=== PATIENT | male | born 1950 | race Caucasian/White ===

== ENCOUNTER → 2016-08-21 | Outpatient (CLI) | payer OTHER ==
[~2016-08-21] MED LIST: AMMO12CR4 TOP; ASPI1TAB PO; BACT2CRE TOP; CRES20TA PO; DRIS50002 PO; FERR325T PO; FURO40TA2 PO; LEVO100T5 PO; LISI-538 PO; PANT40TA2 PO; SPIR25TA2 PO; SUCR1TA PO; VITA10002 PO
[2016-08-21 08:23] LABS: ALBUMIN 3.2 GM/DL (3.2-5.2); ALBUMIN/GLOBULIN RATIO 0.94 (1.00-1.93); ALKALINE PHOSPHATASE 79 U/L (45-117); ALT/SGPT 15 U/L (12-78); ANION GAP 8 MEQ/L (8-16); AST/SGOT 11 U/L (15-37); BILIRUBIN,TOTAL 0.4 MG/DL (0.2-1.0); BLOOD UREA NITROGEN 26 MG/DL (7-18); CARBON DIOXIDE LEVEL 25 MEQ/L (21-32); CHLORIDE LEVEL 110 MEQ/L (98-107); CREATININE FOR GFR 0.87 MG/DL (0.70-1.30); FERRITIN 76 NG/ML (26-388); GLOMERULAR FILTRATION RATE > 60.0 (>49); GLUCOSE, FASTING 124 MG/DL (80-110); PERCENT SATURATION 15.1 % (19.7-37.4); POTASSIUM SERUM 4.4 MEQ/L (3.5-5.1); SODIUM LEVEL 143 MEQ/L (136-145); TOTAL IRON BINDING CAPACITY 358 UG/DL (250-450); TOTAL PROTEIN 6.6 GM/DL (6.4-8.2)
[2016-08-21 08:30] LABS: BASO % 0.6 % (0.0-1.0); EOS # 0.2 K/mm3 (0.0-0.50); EOS % 2.3 % (0.0-3.0); LARGE UNSTAINED CELL # 0.2 K/mm3 (0.0-0.4); LARGE UNSTAINED CELL % 3.3 % (0.0-4.0); LYMPH # 1.4 K/mm3 (1.5-4.5); LYMPH % 19.8 % (24.0-44.0); MEAN CORPUSCULAR HGB CONC 31.9 g/dl (32.0-36.5); MONO # 0.5 K/mm3 (0.0-0.8); MONO % 7.2 % (0.0-5.0); NEUTROPHILS # 4.7 K/mm3 (1.8-7.7); NEUTROPHILS % 66.7 % (36.0-66.0); PLATELET COUNT, AUTOMATED 108 k/mm3 (150-450); RED CELL DISTRIBUTION WIDTH 14.8 % (11.5-14.5); WHITE BLOOD COUNT 7.1 K/mm3 (4.0-10.0)
== END ==
LOC: M LAB 07:31
PROVIDERS: ATTEND Family Medicine
DX: D50.9 Iron deficiency anemia, unspecified (principal); E55.9 Vitamin D deficiency, unspecified; E11.9 Type 2 diabetes mellitus without complications

== ENCOUNTER → 2016-10-05 | Outpatient (CLI) | payer OTHER ==
[2016-10-05 08:14] LABS: MEAN CORPUSCULAR HEMOGLOBIN 29.5 pg (27.0-33.0); MEAN CORPUSCULAR HGB CONC 32.9 g/dl (32.0-36.5); MEAN CORPUSCULAR VOLUME 89.8 fl (80.0-96.0); RED CELL DISTRIBUTION WIDTH 14.7 % (11.5-14.5)
[2016-10-05 08:52] LABS: ALBUMIN 3.4 GM/DL (3.2-5.2); ALBUMIN/GLOBULIN RATIO 1.03 (1.00-1.93); ALKALINE PHOSPHATASE 82 U/L (45-117); ALT/SGPT 16 U/L (12-78); ANION GAP 6 MEQ/L (8-16); AST/SGOT 11 U/L (15-37); BILIRUBIN,TOTAL 0.6 MG/DL (0.2-1.0); BLOOD UREA NITROGEN 33 MG/DL (7-18); CALCIUM LEVEL 8.2 MG/DL (8.8-10.2); CARBON DIOXIDE LEVEL 28 MEQ/L (21-32); CHLORIDE LEVEL 108 MEQ/L (98-107); CREATININE FOR GFR 0.98 MG/DL (0.70-1.30); GLOMERULAR FILTRATION RATE > 60.0 (>49); GLUCOSE, FASTING 116 MG/DL (80-110); POTASSIUM SERUM 4.5 MEQ/L (3.5-5.1); SODIUM LEVEL 142 MEQ/L (136-145); TOTAL PROTEIN 6.7 GM/DL (6.4-8.2)
== END ==
LOC: M LAB 07:36
PROVIDERS: ATTEND Physician Assistant
DX: I25.10 Atherosclerotic heart disease of native coronary artery without angina pectoris (principal); I50.32 Chronic diastolic (congestive) heart failure; E78.00 Pure hypercholesterolemia, unspecified

== ENCOUNTER → 2016-11-20 | Outpatient (CLI) | payer OTHER ==
[2016-11-20 12:13] LABS: BASO % 0.6 % (0.0-1.0); EOS # 0.1 K/mm3 (0.0-0.50); EOS % 1.8 % (0.0-3.0); LARGE UNSTAINED CELL # 0.2 K/mm3 (0.0-0.4); LARGE UNSTAINED CELL % 2.7 % (0.0-4.0); LYMPH # 1.9 K/mm3 (1.5-4.5); LYMPH % 20.8 % (24.0-44.0); MEAN CORPUSCULAR HEMOGLOBIN 30.2 pg (27.0-33.0); MEAN CORPUSCULAR HGB CONC 33.2 g/dl (32.0-36.5); MEAN CORPUSCULAR VOLUME 91.1 fl (80.0-96.0); MONO # 0.5 K/mm3 (0.0-0.8); MONO % 6.4 % (0.0-5.0); NEUTROPHILS # 5.4 K/mm3 (1.8-7.7); NEUTROPHILS % 67.6 % (36.0-66.0); PLATELET COUNT, AUTOMATED 103 k/mm3 (150-450); RED CELL DISTRIBUTION WIDTH 15.1 % (11.5-14.5)
== END ==
LOC: M WUC 08:56
PROVIDERS: ATTEND Physician Assistant
DX: M10.071 Idiopathic gout, right ankle and foot (principal)

== ENCOUNTER → 2017-01-18 | Outpatient (CLI) | payer OTHER ==
[~2017-01-18] MED LIST changes: +FERR1TAB8 PO; -FERR325T PO
[2017-01-18 07:51] LABS: BASO % 0.7 % (0.0-1.0); EOS # 0.2 K/mm3 (0.0-0.50); EOS % 3.3 % (0.0-3.0); LARGE UNSTAINED CELL # 0.2 K/mm3 (0.0-0.4); LYMPH # 1.4 K/mm3 (1.5-4.5); LYMPH % 21.9 % (24.0-44.0); MEAN CORPUSCULAR HEMOGLOBIN 29.4 pg (27.0-33.0); MEAN CORPUSCULAR HGB CONC 32.7 g/dl (32.0-36.5); MEAN CORPUSCULAR VOLUME 89.9 fl (80.0-96.0); MONO # 0.4 K/mm3 (0.0-0.8); MONO % 6.3 % (0.0-5.0); NEUTROPHILS # 4.2 K/mm3 (1.8-7.7); NEUTROPHILS % 64.7 % (36.0-66.0); PLATELET COUNT, AUTOMATED 141 k/mm3 (150-450); RED CELL DISTRIBUTION WIDTH 14.6 % (11.5-14.5); WHITE BLOOD COUNT 6.4 K/mm3 (4.0-10.0)
[2017-01-18 08:36] LABS: ALBUMIN 3.4 GM/DL (3.2-5.2); ALBUMIN/GLOBULIN RATIO 0.97 (1.00-1.93); ALKALINE PHOSPHATASE 86 U/L (45-117); ALT/SGPT 13 U/L (12-78); ANION GAP 9 MEQ/L (8-16); AST/SGOT 10 U/L (15-37); BILIRUBIN,TOTAL 0.6 MG/DL (0.2-1.0); BLOOD UREA NITROGEN 28 MG/DL (7-18); CALCIUM LEVEL 8.3 MG/DL (8.8-10.2); CARBON DIOXIDE LEVEL 27 MEQ/L (21-32); CHLORIDE LEVEL 109 MEQ/L (98-107); FERRITIN 123 NG/ML (26-388); GLOMERULAR FILTRATION RATE > 60.0 (>49); GLUCOSE, FASTING 113 MG/DL (80-110); PERCENT SATURATION 12.7 % (19.7-50.0); SODIUM LEVEL 145 MEQ/L (136-145); TOTAL IRON BINDING CAPACITY 347 UG/DL (250-450); TOTAL PROTEIN 6.9 GM/DL (6.4-8.2)
== END ==
LOC: M LAB 07:24
PROVIDERS: ATTEND Family Medicine
DX: Z12.5 Encounter for screening for malignant neoplasm of prostate (principal); D69.6 Thrombocytopenia, unspecified; E55.9 Vitamin D deficiency, unspecified; E03.9 Hypothyroidism, unspecified; E11.9 Type 2 diabetes mellitus without complications
CPT/HCPCS: 36415; 80053; 82306; 82728; 83036; 83550; 83970; 84439; 84443; 85025; G0103

== ENCOUNTER → 2017-05-01 | Outpatient (CLI) | payer OTHER ==
[2017-05-01 14:43] LABS: BASO # 0.1 10^3/uL (0.0-0.2); BASO % 0.7 % (0.0-1.0); EOS # 0.3 10^3/uL (0.0-0.50); EOS % 3.2 % (0.0-3.0); IMMATURE GRANULOCYTE % 0.2 % (0-0); LYMPH # 1.6 10^3/uL (1.5-4.5); LYMPH % 19.3 % (24.0-44.0); MEAN CORPUSCULAR HEMOGLOBIN 28.6 pg (27.0-33.0); MEAN CORPUSCULAR HGB CONC 32.2 g/dl (32.0-36.5); MONO # 0.8 10^3/uL (0.0-0.8); MONO % 10.2 % (0.0-5.0); NEUTROPHILS # 5.3 10^3/uL (1.8-7.7); NEUTROPHILS % 66.4 % (36.0-66.0); PLATELET COUNT, AUTOMATED 150 10^3/uL (150-450); RED CELL DISTRIBUTION WIDTH 15.4 % (11.5-14.5); RETIC HEMOGLOBIN EQUIVALENT 33.3 pg (24-36); RETICULOCYTE % 1.5 % (0.5-1.5)
[2017-05-01 15:06] LABS: ALBUMIN 3.5 GM/DL (3.2-5.2); ALKALINE PHOSPHATASE 100 U/L (45-117); ALT/SGPT 17 U/L (12-78); ANION GAP 9 MEQ/L (8-16); AST/SGOT 12 U/L (7-37); BILIRUBIN,TOTAL 0.5 MG/DL (0.2-1.0); BLOOD UREA NITROGEN 26 MG/DL (7-18); CARBON DIOXIDE LEVEL 29 MEQ/L (21-32); CHLORIDE LEVEL 104 MEQ/L (98-107); CHOLESTEROL LEVEL 94 MG/DL (<200); CREATININE FOR GFR 1.05 MG/DL (0.70-1.30); GLOMERULAR FILTRATION RATE > 60.0 (>49); GLUCOSE, FASTING 110 MG/DL (80-110); PERCENT SATURATION 13.4 % (19.7-50.0); POTASSIUM SERUM 4.4 MEQ/L (3.5-5.1); SODIUM LEVEL 142 MEQ/L (136-145); TOTAL IRON BINDING CAPACITY 367 UG/DL (250-450); TOTAL PROTEIN 7.4 GM/DL (6.4-8.2); TRIGLYCERIDES LEVEL 129 MG/DL (<150); URIC ACID 6.6 MG/DL (3.5-7.2)
[2017-05-04 10:41] LABS: PRETREATED FOLATE FOR RBCFOL 12.8 NG/ML
== END ==
LOC: M LAB 13:18
PROVIDERS: ATTEND Family Medicine
DX: D50.9 Iron deficiency anemia, unspecified (principal); E55.9 Vitamin D deficiency, unspecified; E11.9 Type 2 diabetes mellitus without complications; E78.5 Hyperlipidemia, unspecified; E03.9 Hypothyroidism, unspecified; M10.9 Gout, unspecified

== ENCOUNTER → 2017-05-30 | Outpatient (CLI) | payer OTHER | LOC: M RAD 14:17 | DX: I87.9 Disorder of vein, unspecified (principal) | CPT/HCPCS: 93971 ==

== ENCOUNTER → 2017-09-03 | Outpatient (CLI) | payer MEDICARE, OTHER ==
[2017-09-03 06:48] LABS: BASO # 0.1 10^3/uL (0.0-0.2); BASO % 0.8 % (0.0-1.0); EOS # 0.2 10^3/uL (0.0-0.50); EOS % 2.4 % (0.0-3.0); HEMATOCRIT 41.7 % (42.0-52.0); HEMOGLOBIN 13.7 g/dl (13.5-17.5); IMMATURE GRANULOCYTE % 0.5 % (0-3.0); LYMPH # 1.8 10^3/uL (1.5-4.5); LYMPH % 19.1 % (24.0-44.0); MEAN CORPUSCULAR HEMOGLOBIN 29.3 pg (27.0-33.0); MEAN CORPUSCULAR HGB CONC 32.9 g/dl (32.0-36.5); MEAN CORPUSCULAR VOLUME 89.1 fl (80.0-96.0); MONO # 0.8 10^3/uL (0.0-0.8); MONO % 7.9 % (0.0-5.0); NEUTROPHILS # 6.7 10^3/uL (1.8-7.7); NEUTROPHILS % 69.3 % (36.0-66.0); PLATELET COUNT, AUTOMATED 126 10^3/uL (150-450); RED BLOOD COUNT 4.68 10^6/uL (4.30-6.10); WHITE BLOOD COUNT 9.6 10^3/uL (4.0-10.0)
[2017-09-03 07:25] LABS: ALBUMIN 3.4 GM/DL (3.2-5.2); ALBUMIN/GLOBULIN RATIO 0.87 (1.00-1.93); ALKALINE PHOSPHATASE 103 U/L (45-117); ALT/SGPT 16 U/L (12-78); ANION GAP 6 MEQ/L (8-16); AST/SGOT 12 U/L (7-37); BILIRUBIN,TOTAL 0.5 MG/DL (0.2-1.0); BLOOD UREA NITROGEN 34 MG/DL (7-18); CALCIUM LEVEL 8.3 MG/DL (8.8-10.2); CARBON DIOXIDE LEVEL 27 MEQ/L (21-32); CHLORIDE LEVEL 110 MEQ/L (98-107); CREATININE FOR GFR 1.21 MG/DL (0.70-1.30); FREE T4 0.97 NG/DL (0.76-1.46); GLOMERULAR FILTRATION RATE > 60.0 (>49); GLUCOSE, FASTING 159 MG/DL (70-100); POTASSIUM SERUM 4.2 MEQ/L (3.5-5.1); SODIUM LEVEL 143 MEQ/L (136-145); TOTAL PROTEIN 7.3 GM/DL (6.4-8.2); URIC ACID 4.3 MG/DL (3.5-7.2)
[2017-09-03 08:55] LABS: PTH INTACT 120.1 PG/ML (18.5-88.0)
[2017-09-03 10:47] LABS: ESTIMATED AVERAGE GLUCOSE 166 MG/DL (60-110); HEMOGLOBIN A1c 7.4 %
== END ==
LOC: M LAB 06:12
DX: N18.2 Chronic kidney disease, stage 2 (mild) (principal); E03.9 Hypothyroidism, unspecified; M10.9 Gout, unspecified; E55.9 Vitamin D deficiency, unspecified; E11.9 Type 2 diabetes mellitus without complications
CPT/HCPCS: 84443

== ENCOUNTER → 2017-10-05 | Outpatient (CLI) | payer MEDICARE, OTHER ==
[2017-10-05 08:22] LABS: HEMOGLOBIN 12.9 g/dl (13.5-17.5); MEAN CORPUSCULAR HEMOGLOBIN 30.1 pg (27.0-33.0); MEAN CORPUSCULAR HGB CONC 33.1 g/dl (32.0-36.5); MEAN CORPUSCULAR VOLUME 91.1 fl (80.0-96.0); PLATELET COUNT, AUTOMATED 117 10^3/uL (150-450); RED BLOOD COUNT 4.28 10^6/uL (4.30-6.10); RED CELL DISTRIBUTION WIDTH 14.4 % (11.5-14.5); WHITE BLOOD COUNT 7.6 10^3/uL (4.0-10.0)
[2017-10-05 08:45] LABS: ALBUMIN 3.3 GM/DL (3.2-5.2); ALBUMIN/GLOBULIN RATIO 0.97 (1.00-1.93); ALKALINE PHOSPHATASE 104 U/L (45-117); ALT/SGPT 13 U/L (12-78); ANION GAP 6 MEQ/L (8-16); AST/SGOT 12 U/L (7-37); BILIRUBIN,TOTAL 0.5 MG/DL (0.2-1.0); BLOOD UREA NITROGEN 28 MG/DL (7-18); CALCIUM LEVEL 8.2 MG/DL (8.8-10.2); CARBON DIOXIDE LEVEL 26 MEQ/L (21-32); CHLORIDE LEVEL 111 MEQ/L (98-107); CREATININE FOR GFR 1.18 MG/DL (0.70-1.30); GLOMERULAR FILTRATION RATE > 60.0 (>49); GLUCOSE, FASTING 149 MG/DL (70-100); POTASSIUM SERUM 4.3 MEQ/L (3.5-5.1); SODIUM LEVEL 143 MEQ/L (136-145); TOTAL PROTEIN 6.7 GM/DL (6.4-8.2)
== END ==
LOC: M LAB 07:51
DX: I25.2 Old myocardial infarction (principal); I50.32 Chronic diastolic (congestive) heart failure; E78.00 Pure hypercholesterolemia, unspecified
CPT/HCPCS: 80053

== ENCOUNTER → 2017-12-26 | Outpatient (CLI) | payer MEDICARE, OTHER | LOC: M RAD 14:44 | DX: M79.604 Pain in right leg (principal) | CPT/HCPCS: 93971 ==

== ENCOUNTER → 2018-06-04 | Outpatient (CLI) | payer MEDICARE, OTHER ==
[~2018-06-04] MED LIST changes: -DRIS50002 PO; +DRIS50003 PO; -PANT40TA2 PO; +PANT40TA3 PO; +SPIR-10 PO; -SPIR25TA2 PO
[2018-06-04 07:05] LABS: BASO # 0.1 10^3/uL (0.0-0.2); EOS # 0.2 10^3/uL (0.0-0.50); HEMATOCRIT 40.2 % (42.0-52.0); HEMOGLOBIN 13.2 g/dl (13.5-17.5); LYMPH % 24.4 % (24.0-44.0); MEAN CORPUSCULAR HEMOGLOBIN 29.1 pg (27.0-33.0); MEAN CORPUSCULAR HGB CONC 32.8 g/dl (32.0-36.5); MEAN CORPUSCULAR VOLUME 88.7 fl (80.0-96.0); MONO # 0.7 10^3/uL (0.0-0.8); NEUTROPHILS # 5.2 10^3/uL (1.8-7.7); NEUTROPHILS % 63.2 % (36.0-66.0); PLATELET COUNT, AUTOMATED 115 10^3/uL (150-450); RED BLOOD COUNT 4.53 10^6/uL (4.30-6.10); WHITE BLOOD COUNT 8.2 10^3/uL (4.0-10.0)
[2018-06-04 07:07] LABS: HEMATOCRIT 41.5 % (42.0-52.0)
[2018-06-04 07:30] LABS: HEMOGLOBIN A1c 8.3 %
[2018-06-04 07:39] LABS: FREE T4 0.98 NG/DL (0.76-1.46)
[2018-06-04 09:35] LABS: VITAMIN B12 LEVEL 601 PG/ML (247-911)
== END ==
LOC: M LAB 06:30
PROVIDERS: ATTEND Family Medicine
DX: D50.9 Iron deficiency anemia, unspecified (principal); E03.9 Hypothyroidism, unspecified; E11.9 Type 2 diabetes mellitus without complications; E53.8 Deficiency of other specified B group vitamins; Z12.5 Encounter for screening for malignant neoplasm of prostate
CPT/HCPCS: 36415; 82607; 82747; 83036; 84439; 84443; 85025; 86335; G0103

== ENCOUNTER → 2018-10-28 | Outpatient (CLI) | payer MEDICARE, OTHER ==
[~2018-10-28] MED LIST changes: -AMMO12CR4 TOP; +AMMO12CR7 TOP; -ASPI1TAB PO; +ASPI81TA26 PO; -CRES20TA PO; +CRES20TA2 PO
[2018-10-28 07:10] LABS: BASO # 0.1 10^3/uL (0.0-0.2); BASO % 0.7 % (0.0-1.0); EOS # 0.2 10^3/uL (0.0-0.50); EOS % 2.2 % (0.0-3.0); HEMATOCRIT 40.2 % (42.0-52.0); HEMOGLOBIN 13.1 g/dl (13.5-17.5); LYMPH # 2.1 10^3/uL (1.5-4.5); LYMPH % 24.9 % (24.0-44.0); MEAN CORPUSCULAR HGB CONC 32.6 g/dl (32.0-36.5); MEAN CORPUSCULAR VOLUME 89.1 fl (80.0-96.0); MONO # 0.6 10^3/uL (0.0-0.8); MONO % 7.5 % (0.0-5.0); NEUTROPHILS # 5.5 10^3/uL (1.8-7.7); NEUTROPHILS % 64.2 % (36.0-66.0); PLATELET COUNT, AUTOMATED 133 10^3/uL (150-450); RED BLOOD COUNT 4.51 10^6/uL (4.30-6.10); WHITE BLOOD COUNT 8.6 10^3/uL (4.0-10.0)
[2018-10-28 07:16] LABS: AMORPHOUS SEDIMENT SMALL (NEGATIVE); APPEARANCE, URINE HAZY (CLEAR); BACTERIA, URINE AUTO NEGATIVE (NEGATIVE); BILIRUBIN, URINE AUTO NEGATIVE (NEGATIVE); BLOOD, URINE BLOOD NEGATIVE (NEGATIVE); COLOR, URINE YELLOW (YELLOW); GLUCOSE, URINE (UA) AUTO NEGATIVE (NEGATIVE); KETONE, URINE AUTO NEGATIVE (NEGATIVE); LEUKOCYTE ESTERASE, URINE AUTO TRACE (NEGATIVE); MUCUS, URINE SMALL (NEGATIVE); NITRITE, URINE AUTO NEGATIVE (NEGATIVE); PROTEIN, URINE AUTO NEGATIVE (NEGATIVE); RBC, URINE AUTO 4 /HPF (0-3); SPECIFIC GRAVITY URINE AUTO 1.024 (1.002-1.035); SQUAMOUS EPITHELIAL CELL UR AU 2 /HPF (0-6); WBC, URINE AUTO 5 /HPF (0-3)
[2018-10-28 07:38] LABS: ALBUMIN 3.5 GM/DL (3.2-5.2); ALT/SGPT 23 U/L (12-78); BILIRUBIN,TOTAL 0.6 MG/DL (0.2-1.0); BLOOD UREA NITROGEN 21 MG/DL (7-18); CALCIUM LEVEL 9.1 MG/DL (8.8-10.2); CARBON DIOXIDE LEVEL 26 MEQ/L (21-32); CHLORIDE LEVEL 106 MEQ/L (98-107); CREATININE FOR GFR 1.07 MG/DL (0.70-1.30); FREE T4 1.04 NG/DL (0.76-1.46); GLOMERULAR FILTRATION RATE > 60.0 (>49); GLUCOSE, FASTING 191 MG/DL (70-100); MAGNESIUM LEVEL 1.7 MG/DL (1.8-2.4); POTASSIUM SERUM 4.2 MEQ/L (3.5-5.1); SODIUM LEVEL 140 MEQ/L (136-145)
[2018-10-28 07:41] LABS: MALB URINE SIEMENS 37.6 MG/L; MAU/CREAT RATIO 15.7 MCG/MG (0.0-30.0)
[2018-10-28 07:48] LABS: HEMOGLOBIN A1c 8.2 %
== END ==
LOC: M LAB 06:22
PROVIDERS: ATTEND Family Medicine
DX: D50.9 Iron deficiency anemia, unspecified (principal); N18.2 Chronic kidney disease, stage 2 (mild); E03.9 Hypothyroidism, unspecified; E11.22 Type 2 diabetes mellitus with diabetic chronic kidney disease

== ENCOUNTER → 2018-11-14 | Outpatient (CLI) | payer MEDICARE, OTHER ==
[2018-11-14 07:02] LABS: BASO # 0.1 10^3/uL (0.0-0.2); BASO % 0.8 % (0.0-1.0); EOS # 0.2 10^3/uL (0.0-0.50); EOS % 2.3 % (0.0-3.0); HEMATOCRIT 39.7 % (42.0-52.0); LYMPH # 2.1 10^3/uL (1.5-4.5); LYMPH % 24.5 % (24.0-44.0); MEAN CORPUSCULAR HEMOGLOBIN 29.3 pg (27.0-33.0); MEAN CORPUSCULAR HGB CONC 32.7 g/dl (32.0-36.5); MEAN CORPUSCULAR VOLUME 89.6 fl (80.0-96.0); MONO # 0.7 10^3/uL (0.0-0.8); NEUTROPHILS # 5.4 10^3/uL (1.8-7.7); PLATELET COUNT, AUTOMATED 140 10^3/uL (150-450); RED BLOOD COUNT 4.43 10^6/uL (4.30-6.10); WHITE BLOOD COUNT 8.4 10^3/uL (4.0-10.0)
[2018-11-14 07:24] LABS: BLOOD UREA NITROGEN 22 MG/DL (7-18); CALCIUM LEVEL 8.8 MG/DL (8.8-10.2); CARBON DIOXIDE LEVEL 28 MEQ/L (21-32); CHLORIDE LEVEL 107 MEQ/L (98-107); CREATININE FOR GFR 1.16 MG/DL (0.70-1.30); GLOMERULAR FILTRATION RATE > 60.0 (>49); GLUCOSE, FASTING 206 MG/DL (70-100); POTASSIUM SERUM 4.1 MEQ/L (3.5-5.1); SODIUM LEVEL 142 MEQ/L (136-145)
== END ==
LOC: M LAB 06:11
PROVIDERS: ATTEND Physician Assistant
DX: I25.10 Atherosclerotic heart disease of native coronary artery without angina pectoris (principal)

== ENCOUNTER → 2018-12-06 | Outpatient (CLI) | payer MEDICARE, OTHER ==
[~2018-12-06] MED LIST changes: +ALLO100T PO; +ASPI81TA85 PO; +CYAN100049 PO; +DICL1GEL3 TOP; +FLON1SPR; +METF10004 PO; +MM S100C PO; +MUPI2OI EXT; +NITR0.4S14 SL; +OMEP40CA97 PO; +OXYC1TAB23 PO; +TRUL0.5I SC; +TRUL10IN SC; -VITA10002 PO; +stool softner
--- NOTE | 2018-12-06 09:41 | REP ---
BILATERAL LOWER EXTREMITY DUPLEX DOPPLER VENOUS ULTRASOUND: Real-time compression and duplex Doppler interrogation of bilateral lower extremity deep venous systems is performed. Bilaterally, common femoral, superficial femoral, and popliteal veins are fully compressible with transducer pressure and demonstrate normal spontaneous and phasic flow without evidence of deep venous thrombosis. Evaluation for venous reflux is performed in a standing position for most of the study as well as with the bed tipped. The patient was unable to tolerate standing for the evaluation of the left popliteal vein. On the right, there is reflux in the common femoral vein in the standing position and in the mid superficial femoral vein with the bed tipped. There is no evidence of an anterior accessory greater saphenous vein. There is reflux in the greater saphenous vein at the saphenofemoral junction with a duration of 4 seconds, AP diameter 10 mm, also at the midthigh level duration 6.2 seconds, AP diameter 8 mm, as well as at the knee, duration 5.4 seconds, AP diameter 8 mm. There is no reflux in the lesser saphenous vein. There are collateral vessels with reflux in the proximal thigh measuring 8 mm and in the midthigh measuring 6 mm. On the left, there is reflux throughout the deep vein system. There is no evidence of an anterior accessory greater saphenous vein. There is reflux in the greater saphenous vein at the saphenofemoral junction with a duration of 7 seconds, AP diameter 6 mm, at the midthigh with a duration of 6.8 seconds, AP diameter 6 mm, as well as at the knee duration 7.6 seconds, AP diameter 4 mm. There is no evidence of reflux in the lesser saphenous vein. Electronically Signed by Bryson Moreno MD 12/07/2018 10:46 A
== END ==
LOC: M RAD 06:14
PROVIDERS: ATTEND Physician Assistant
DX: I80.203 Phlebitis and thrombophlebitis of unspecified deep vessels of lower extremities, bilateral (principal)

== ENCOUNTER → 2018-12-20 | Outpatient (CLI) | payer MEDICARE, OTHER ==
[~2018-12-20] MED LIST changes: -ALLO100T PO; -ASPI81TA85 PO; -DICL1GEL3 TOP; -FLON1SPR; -METF10004 PO; -MM S100C PO; -MUPI2OI EXT; -NITR0.4S14 SL; -OMEP40CA97 PO; -OXYC1TAB23 PO; -TRUL0.5I SC; -TRUL10IN SC; -stool softner
--- NOTE | 2018-12-20 14:41 | REP ---
Right lower extremity arterial duplex ultrasound: Brachial artery peak systole: 140 mmHg. Dorsalis pedis peak systole: 122 mmHg. [employer] SUPERVISOR peak systole: 128 mmHg. JANA 0.9. Peak Systolic Phasicity Velocity [employer] 157.8 triphasic Profunda 76.7 biphasic SFA prox 133 triphasic SFA mid 95.5 triphasic SFA dist 72.6 triphasic Pop 73.1 monophasic ANURADHA prox 64 monophasic Tib/P tr 66.3 monophasic [employer] SUPERVISOR pr not seen -- [employer] SUPERVISOR dst 98.3 monophasic ANURADHA dst 55.6 triphasic Left lower extremity arterial duplex ultrasound: Brachial artery peak systole: 142 mmHg. Dorsalis pedis peak systole: 148 mmHg. [employer] SUPERVISOR peak systole: 40 mmHg. JANA: 1.0 Peak Systolic Phasicity Velocity [employer] 119.5 triphasic Profunda 78.3 triphasic SFA prox 133.7 triphasic SFA mid 104.0 triphasic SFA dist 73.4 triphasic Pop 44.6 triphasic ANURADHA prox 41.3 triphasic Tib/P tr 50.7 triphasic [employer] SUPERVISOR pr 41.7 triphasic [employer] SUPERVISOR dst 58.8 triphasic ANURADHA dst 41. 0 Triphasic The study is technically difficult because of lower extremity edema and patient body habitus. In the right lower extremity. there is severe edema from the common femoral artery to the foot. The right [employer] SUPERVISOR could not be identified because of edema and body habitus. Electronically Signed by Bryson Hernandez MD 12/20/2018 02:32 P
== END ==
LOC: M RAD 12:27
PROVIDERS: ATTEND Surgery Vascular Surgery
DX: M79.604 Pain in right leg (principal); M79.605 Pain in left leg; R60.9 Edema, unspecified; I73.9 Peripheral vascular disease, unspecified

== ENCOUNTER 2019-02-10 07:30 | Emergency (ER) | payer MEDICARE, OTHER ==
[~2019-02-10] VITALS: Ht 175.3 cm; Wt 160.4 kg
[~2019-02-10 07:30] MED LIST changes: +ALLO100T PO; +FLON1SPR; +METF10004 PO; +NITR0.4S14 SL; +TRUL10IN SC; +stool softner
[2019-02-10] MEDS ORDERED: OMEP40CA2 PO (07:49)
[2019-02-10] MEDS ORDERED: NS 500 ML IV ONE ×2 (08:00→09:15)
[2019-02-10 08:14] LABS: BASO # 0.1 10^3/uL (0.0-0.2); BASO % 0.7 % (0.0-1.0); EOS # 0.2 10^3/uL (0.0-0.5); EOS % 2.3 % (0.0-3.0); HEMATOCRIT 41.3 % (42.0-52.0); HEMOGLOBIN 13.6 g/dl (13.5-17.5); LYMPH # 1.6 10^3/uL (1.5-5.0); LYMPH % 17.9 % (24.0-44.0); MEAN CORPUSCULAR HEMOGLOBIN 29.6 pg (27.0-33.0); MEAN CORPUSCULAR HGB CONC 32.9 g/dl (32.0-36.5); MONO # 0.7 10^3/uL (0.0-0.8); MONO % 8.1 % (0.0-5.0); NEUTROPHILS # 6.4 10^3/uL (1.5-8.5); NEUTROPHILS % 70.5 % (36.0-66.0); PLATELET COUNT, AUTOMATED 112 10^3/uL (150-450); RED BLOOD COUNT 4.59 10^6/uL (4.30-6.10); WHITE BLOOD COUNT 9.1 10^3/uL (4.0-10.0)
[2019-02-10 08:36] LABS: BLOOD UREA NITROGEN 24 MG/DL (7-18); CALCIUM LEVEL 9.3 MG/DL (8.8-10.2); CARBON DIOXIDE LEVEL 23 MEQ/L (21-32); CHLORIDE LEVEL 110 MEQ/L (98-107); CREATININE FOR GFR 1.23 MG/DL (0.70-1.30); GLOMERULAR FILTRATION RATE > 60.0 (>49); GLUCOSE, FASTING 194 MG/DL (70-100); POTASSIUM SERUM 4.4 MEQ/L (3.5-5.1); SODIUM LEVEL 141 MEQ/L (136-145)
[2019-02-10 12:29] VITALS: BP 155/69
[2019-02-14] MEDS ORDERED: DICL1GEL3 TOP (13:06)
[2019-02-14] MEDS ORDERED: ASPI81TA85 PO (13:06)
[2019-02-14] MEDS ORDERED: MUPI2OI EXT (13:06)
[2019-02-14] MEDS ORDERED: MM S100C PO (13:06)
== END 2019-02-10 12:30 | disposition home or self-care (01) ==
LOC: M ED 07:30
DX: R19.7 Diarrhea, unspecified (principal); B96.23 Unspecified Shiga toxin-producing Escherichia coli [E. coli] [STEC] as the cause of diseases classified elsewhere; E11.9 Type 2 diabetes mellitus without complications; I10 Essential (primary) hypertension; E78.5 Hyperlipidemia, unspecified; G47.33 Obstructive sleep apnea (adult) (pediatric); E66.8 Other obesity; M10.9 Gout, unspecified; M17.9 Osteoarthritis of knee, unspecified; Z79.899 Other long term (current) drug therapy; Z79.890 Hormone replacement therapy; Z79.84 Long term (current) use of oral hypoglycemic drugs; Z79.82 Long term (current) use of aspirin

== ENCOUNTER → 2019-03-31 | Outpatient (CLI) | payer MEDICARE, OTHER ==
[~2019-03-31] MED LIST changes: +ASPI81TA85 PO; +DICL1GEL3 TOP; +HEPARIN 1,000 UNITS/ML 10ML VIAL (FOR RADIOLOGY& DIALYSIS ONLY) As Ordered ONE; +ISOVUE-300 61% 50ML VIAL (Q9967) As Ordered ONE; +LIDOCAINE 1% MDV 20ML VIAL As Ordered ONE; +MIDAZOLAM INJ 2 MG/2 ML VIAL (J2250) As Ordered ONE; +MM S100C PO; +MUPI2OI EXT; +OMEP40CA97 PO; +fentaNYL 100 MCG/2 ML INJECTION (J3010) As Ordered ONE
[2019-03-31 09:37] LABS: HEMATOCRIT 39.8 % (42.0-52.0); HEMOGLOBIN 12.4 g/dl (13.5-17.5); MEAN CORPUSCULAR HEMOGLOBIN 28.8 pg (27.0-33.0); MEAN CORPUSCULAR HGB CONC 31.2 g/dl (32.0-36.5); MEAN CORPUSCULAR VOLUME 92.3 fl (80.0-96.0); PLATELET COUNT, AUTOMATED 130 10^3/uL (150-450); RED BLOOD COUNT 4.31 10^6/uL (4.30-6.10); WHITE BLOOD COUNT 8.4 10^3/uL (4.0-10.0)
[2019-03-31 09:57] LABS: BLOOD UREA NITROGEN 24 MG/DL (7-18); CALCIUM LEVEL 8.8 MG/DL (8.8-10.2); CARBON DIOXIDE LEVEL 27 MEQ/L (21-32); CHLORIDE LEVEL 108 MEQ/L (98-107); GLOMERULAR FILTRATION RATE > 60.0 (>49); GLUCOSE, FASTING 175 MG/DL (70-100); POTASSIUM SERUM 4.3 MEQ/L (3.5-5.1); SODIUM LEVEL 140 MEQ/L (136-145)
--- NOTE | 2019-03-31 12:36 | ROOPDOC ---
[facility] Report Of Operation Report of Operation DATE OF PROCEDURE: 03/31/19 PREPROCEDURE DIAGNOSES: Atherosclerosis in the mechoopda vessels right lower extremity POSTPROCEDURE DIAGNOSES: Widely patent flow right lower extremity arterial system PROCEDURE: 1. Ultrasound-guided access left common femoral artery 2. Aortoiliofemoral arteriogram and arteriogram right lower extremity with runoff and select views right tibioperoneal trunk SURGEON: Ed Mckeon MD ANESTHESIA: Local anesthesia 10 mL lidocaine. Moderate intravenous conscious sedation was supervised by Dr. Mckeon. The patient was independently monitored by registered nurse assigned to the Department of radiology using automated blood pressure, EKG, pulse oximetry. The detailed sedation record is permanently [facility] the hospital information system. The following a brief sedation record: Start time 11:46, stop time 12:23, fentanyl 75 g IV, Versed 1 mg IV. INDICATION FOR PROCEDURE: This is a very pleasant 68-year-old morbidly obese gentleman with venous stasis with ulceration worse at the right lower extremity and concern on CTA for poor tibial outflow of the right lower extremity. Risks benefits and alternatives to an arteriogram with potential intervention were explained to the patient. He was agreeable to proceed. Informed consent was obtained. INTERPRETATION: Aortoiliofemoral segments are widely patent. The common femoral artery has excellent widely patent runoff through the per fundi and the superficial femoral artery to widely patent popliteal artery. The anterior tibial and posterior tibial arteries are the main runoff to the foot. Initially, the peroneal artery appeared somewhat stenotic, but it is simply diminutive in size and when we selected tibioperoneal trunk it is widely patent and runs off to the ankle. No intervention was required today. REPORT OF OPERATION: The patient was brought to the angiographic suite in stable condition. His bilateral groins were prepped and draped in a sterile fashion. Due to his mental size, we did have to taper of his abdomen to expose the groins. A timeout was performed. Local anesthesia was a video poker floorman to skin and subcutaneous tissue in the left groin. Sedation was administered without obligation. A microneedle was used to access the common femoral artery under ultrasound guidance and a wire was passed through this access under fluoroscopic guidance and the needle was removed. The micro-sheath was placed and flushed with saline. A Glidewire was advanced through the micro-sheath into the central system and the sheath was removed and a 6 Korean sheath was placed using a Seldinger technique and flushed with saline. We then went up and over the bifurcation with a Glidewire and an Omni flushed catheter. An aortoiliofemoral arteriogram was performed please see interpretation above. The Glidewire was advanced over through the right iliac system into the common femoral artery and the catheter was also advanced. The sheath was exchanged for a destination sheath over the bifurcation and flushed with saline. The right lower extremity arteriogram was performed please see interpretation above. We then selected s uperficial femoral artery for distal arteriogram but the tibial vessels were still difficult to fully see. We went up and through with the glide cath in the Glidewire down to the tibioperoneal trunk and once this was selected we were able to see 3 vessel runoff through all muscles to the foot. The peroneal artery is diminutive but patent. Anterior and tibial and posterior tibial arteries are the main runoff to the foot. No arterial insufficiency noted on imaging today. This concluded our procedure. The sheath was exchanged for a short 6 Korean sheath and flushed with saline. A minx closure device was deployed with good hemostasis and pressure was held for 10 minutes postprocedure. The patient was then taken to recovery in stable condition. He tolerated the procedure well and there were no complications. ESTIMATED BLOOD LOSS: Approximately 5 mL. COMPLICATIONS: none. PLAN: We'll see the patient back in clinic in a week to check his groin access site. It is okay for him to use compression to help treat the right lower extremity. He has adequate arterial flow to tolerate a strong compression. ED MCKEON MD Mar 31, 2019 12:36
[2019-03-31 16:28] VITALS: BP 126/61
== END ==
LOC: M IRPRO 08:30
PROVIDERS: ATTEND Surgery Vascular Surgery
DX: I70.239 Atherosclerosis of native arteries of right leg with ulceration of unspecified site (principal); I87.2 Venous insufficiency (chronic) (peripheral); E66.01 Morbid (severe) obesity due to excess calories
CPT/HCPCS: 36425; 75710; 75774; 80048; 85027; 99152; 99153; C1760; C1769; C1887; C1894; G0239; J2250; J3010; Q9967

== ENCOUNTER 2019-04-09 09:49 | Day surgery (SDC) | payer MEDICARE, OTHER ==
[~2019-04-09] VITALS: Ht 175.3 cm; Wt 159.7 kg
[~2019-04-09 09:49] MED LIST changes: -HEPARIN 1,000 UNITS/ML 10ML VIAL (FOR RADIOLOGY& DIALYSIS ONLY) As Ordered ONE; -ISOVUE-300 61% 50ML VIAL (Q9967) As Ordered ONE; -LIDOCAINE 1% MDV 20ML VIAL As Ordered ONE; +LIDOCAINE 1% MDV 20ML VIAL SQ PRN; +LR 1,000 ML IV ONE; -MIDAZOLAM INJ 2 MG/2 ML VIAL (J2250) As Ordered ONE; +TRUL0.5I SC; +ceFAZolin SOD 2 GM in IV 1 EA IV ONE; -fentaNYL 100 MCG/2 ML INJECTION (J3010) As Ordered ONE
[2019-04-09] MEDS ORDERED: fentaNYL 100 MCG/2 ML INJECTION (J3010) As Ordered ONE (10:26)
[2019-04-09] MEDS ORDERED: LIDOCAINE 2% INJ 100 MG/5 ML SDV (FOR ANES.) As Ordered ONE (10:26)
[2019-04-09] MEDS ORDERED: PROPOFOL 200 MG/20 ML VIAL As Ordered ONE (10:26)
[2019-04-09] MEDS ORDERED: MIDAZOLAM INJ 2 MG/2 ML VIAL (J2250) As Ordered ONE ×2 (10:26→11:48)
[2019-04-09] MEDS ORDERED: HEPARIN SOD (PORCINE) 5000 UNITS/ML VIAL As Ordered ONE (11:01)
[2019-04-09] MEDS ORDERED: LIDOCAINE W/EPINEPHRINE 1% 20ML VIAL As Ordered ONE (11:01)
[2019-04-09] MEDS ORDERED: KETAMINE HCL 200 MG/20 ML VIAL As Ordered ONE (11:32)
[2019-04-09] MEDS ORDERED: LIDOCAINE 1% SDV INJ 30 ML VIAL As Ordered ONE (12:03)
[2019-04-09] MEDS ORDERED: ePHEDrine SULFATE 25 MG/5 ML(5MG/ML) SYRINGE As Ordered ONE (12:16)
--- NOTE | 2019-04-09 13:19 | ROOPDOC ---
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 POSTPROCEDURE DIAGNOSES: Same. PROCEDURE: Right greater saphenous vein radiofrequency ablation. SURGEON: Ed Mckeon MD ANESTHESIA: Monitored anesthesia care and local. INDICATION FOR PROCEDURE: Mr. Winston is a pleasant 68-year-old gentleman with significant greater saphenous vein reflux and nonhealing ulcers of the right lower extremity. Response benefits alternatives to radiofrequency ablation were explained to the patient at length. Informed consent was obtained. INTERPRETATION: The radiofrequency ablation catheter was passed under ultrasound guidance to the saphenofemoral junction insuring that the tip was 2 cm distal to the junction. Tumescence was injected along the length of the catheter under ultrasound guidance. The catheter was retracted during ablation under ultrasound guidance. REPORT OF OPERATION: Patient was brought to the OR in stable condition. His right lower extremity and groin were prepped and draped in a sterile fashion. Antibiotics and anesthesia were administered without convocation. A timeout was performed. Local anesthesia was administered to skin and subcutaneous tissue over the medial calf over the greater saphenous vein. Ultrasound was used to guide access with a microneedle and a wire was passed through this access and the needle was removed. A micro-sheath was placed and flushed with saline. A wire was passed through this access and a 7 Swazi sheath was placed and flushed with saline. The ablation catheter was then advanced through the sheath up to the femoral junction insuring that the tip was 2 cm distal to the junction. Tumescence was injected along the length of the catheter circumferentially. The catheter was then used for ablation with ultrasound guidance and compression and 7 cycles were performed. The catheter and sheath were removed and pressure was held at the exit site for 2 minutes. Sterile dressings were applied at the exit site and Xeroform and Kerlix were placed over the ulcers. The leg was wrapped from the toes to the hip with 4 Vikas wraps. The patient was then taken to recove in stable condition. ESTIMATED BLOOD LOSS: Approximately 2 mL. COMPLICATIONS: None. PLAN: The patient should continue dressings and Vikas wraps for 48 hours possible. He should elevate his right lower extremity is much as possible over the next few days. It is okay to ambulate but only short distances he should not be on his feet for extended periods. He will need to return for an ultrasound examination to check to make sure there is no thrombus extending into the deep system and to ensure that the ablation was successful. ED MCKEON MD Apr 09, 2019 13:19
[2019-04-09 14:00] VITALS: BP 140/70
[2019-04-09] MEDS ORDERED: OXYC1TAB23 PO (15:42)
== END 2019-04-09 14:10 | disposition home or self-care (01) ==
LOC: M SDC 09:49
PROVIDERS: ATTEND Surgery Vascular Surgery
DX: I70.232 Atherosclerosis of native arteries of right leg with ulceration of calf (principal); I87.311 Chronic venous hypertension (idiopathic) with ulcer of right lower extremity; L97.219 Non-pressure chronic ulcer of right calf with unspecified severity; I87.2 Venous insufficiency (chronic) (peripheral); I25.10 Atherosclerotic heart disease of native coronary artery without angina pectoris; I11.0 Hypertensive heart disease with heart failure; I50.9 Heart failure, unspecified; E78.00 Pure hypercholesterolemia, unspecified; R01.1 Cardiac murmur, unspecified; E11.9 Type 2 diabetes mellitus without complications; M10.9 Gout, unspecified; E03.9 Hypothyroidism, unspecified; K25.9 Gastric ulcer, unspecified as acute or chronic, without hemorrhage or perforation; K21.9 Gastro-esophageal reflux disease without esophagitis; D64.9 Anemia, unspecified; R06.02 Shortness of breath; M12.9 Arthropathy, unspecified; J44.9 Chronic obstructive pulmonary disease, unspecified; R06.83 Snoring; G47.33 Obstructive sleep apnea (adult) (pediatric); Z79.899 Other long term (current) drug therapy; Z79.82 Long term (current) use of aspirin; Z79.84 Long term (current) use of oral hypoglycemic drugs; Z95.5 Presence of coronary angioplasty implant and graft; Z87.891 Personal history of nicotine dependence; Z68.43 Body mass index [BMI] 50.0-59.9, adult; Z85.038 Personal history of other malignant neoplasm of large intestine
CPT/HCPCS: 36475; C1894; J0690; J2250; J3010

== ENCOUNTER → 2019-04-14 | Outpatient (CLI) | payer MEDICARE, OTHER ==
[~2019-04-14] MED LIST changes: -LIDOCAINE 1% MDV 20ML VIAL SQ PRN; -LR 1,000 ML IV ONE; +OXYC1TAB23 PO; -ceFAZolin SOD 2 GM in IV 1 EA IV ONE
--- NOTE | 2019-04-14 10:58 | REP ---
Right lower extremity Duplex Doppler venous ultrasound: Real time compression and duplex Doppler interrogation of the right lower extremity deep venous system is performed. The right common femoral, superficial femoral and popliteal veins are fully compressible with transducer pressure and demonstrate normal spontaneous and phasic flow, without evidence of deep venous thrombosis. Impression: No evidence of deep venous thrombosis of the right lower extremity femoral popliteal venous system. Right greater saphenous vein is thrombosed, as expected. Electronically Signed by Bryson Moreno MD 04/14/2019 10:50 A
== END ==
LOC: M RAD 09:47
PROVIDERS: ATTEND Surgery Vascular Surgery
DX: I87.2 Venous insufficiency (chronic) (peripheral) (principal)

== ENCOUNTER → 2019-04-22 | Outpatient (CLI) | payer MEDICARE, OTHER ==
[2019-04-22 07:11] LABS: ALBUMIN 3.3 GM/DL (3.2-5.2); BILIRUBIN,DIRECT 0.2 MG/DL (0.0-0.2); BILIRUBIN,TOTAL 0.6 MG/DL (0.2-1.0); CHOLESTEROL RISK RATIO 2.787 (<5); TOTAL PROTEIN 7.2 GM/DL (6.4-8.2)
== END ==
LOC: M LAB 06:13
PROVIDERS: ATTEND Physician Assistant
DX: E78.00 Pure hypercholesterolemia, unspecified (principal); I50.32 Chronic diastolic (congestive) heart failure; I25.10 Atherosclerotic heart disease of native coronary artery without angina pectoris; E83.42 Hypomagnesemia

== ENCOUNTER → 2019-04-28 | Outpatient (CLI) | payer MEDICARE, OTHER ==
[2019-04-28 08:25] LABS: ALBUMIN 3.3 GM/DL (3.2-5.2); ALT/SGPT 24 U/L (12-78); BILIRUBIN,TOTAL 0.4 MG/DL (0.2-1.0); BLOOD UREA NITROGEN 27 MG/DL (7-18); CALCIUM LEVEL 8.8 MG/DL (8.8-10.2); CARBON DIOXIDE LEVEL 24 MEQ/L (21-32); CHLORIDE LEVEL 110 MEQ/L (98-107); CHOLESTEROL LEVEL 92 MG/DL (<200); CHOLESTEROL RISK RATIO 2.787 (<5); CREATININE FOR GFR 1.21 MG/DL (0.70-1.30); FREE T4 1.04 NG/DL (0.76-1.46); GLOMERULAR FILTRATION RATE > 60.0 (>49); GLUCOSE, FASTING 189 MG/DL (70-100); HDL CHOLESTEROL 33 MG/DL (>40); LDL CHOLESTEROL 35 MG/DL (<100); NON-HDL-C 59 MG/DL; POTASSIUM SERUM 4.8 MEQ/L (3.5-5.1); SODIUM LEVEL 140 MEQ/L (136-145); TOTAL PROTEIN 7.3 GM/DL (6.4-8.2); TRIGLYCERIDES LEVEL 118 MG/DL (<150)
[2019-04-28 08:42] LABS: HEMOGLOBIN A1c 8.3 %
[2019-04-28 09:09] LABS: VITAMIN B12 LEVEL 677 PG/ML (247-911)
[2019-04-28 10:46] LABS: APPEARANCE, URINE CLEAR (CLEAR); BACTERIA, URINE AUTO NEGATIVE (NEGATIVE); BILIRUBIN, URINE AUTO NEGATIVE (NEGATIVE); BLOOD, URINE BLOOD NEGATIVE (NEGATIVE); COLOR, URINE YELLOW (YELLOW); GLUCOSE, URINE (UA) AUTO NEGATIVE (NEGATIVE); KETONE, URINE AUTO TRACE mg/dL (NEGATIVE); LEUKOCYTE ESTERASE, URINE AUTO NEGATIVE (NEGATIVE); NITRITE, URINE AUTO NEGATIVE (NEGATIVE); PROTEIN, URINE AUTO NEGATIVE (NEGATIVE); RBC, URINE AUTO 0 /HPF (0-3); SPECIFIC GRAVITY URINE AUTO 1.026 (1.002-1.035); SQUAMOUS EPITHELIAL CELL UR AU 0 /HPF (0-6); UROBILINOGEN, URINE AUTO 0.2 mg/dL (0.0-2.0); WBC, URINE AUTO 1 /HPF (0-3)
[2019-04-28 11:19] LABS: MALB URINE SIEMENS 44.6 MG/L; MAU/CREAT RATIO 15.9 MCG/MG (0.0-30.0)
== END ==
LOC: M LAB 07:12
PROVIDERS: ATTEND Family Medicine
DX: E78.5 Hyperlipidemia, unspecified (principal); E11.9 Type 2 diabetes mellitus without complications

== ENCOUNTER → 2019-09-08 | Outpatient (CLI) | payer MEDICARE, OTHER ==
[2019-09-08 07:11] LABS: ALBUMIN 3.2 GM/DL (3.2-5.2); ALT/SGPT 20 U/L (12-78); BILIRUBIN,TOTAL 0.5 MG/DL (0.2-1.0); BLOOD UREA NITROGEN 27 MG/DL (7-18); CARBON DIOXIDE LEVEL 27 MEQ/L (21-32); CHLORIDE LEVEL 107 MEQ/L (98-107); CREATININE FOR GFR 1.17 MG/DL (0.70-1.30); FREE T4 1.07 NG/DL (0.76-1.46); GLOMERULAR FILTRATION RATE > 60.0 (>49); GLUCOSE, FASTING 205 MG/DL (70-100); MAGNESIUM LEVEL 1.6 MG/DL (1.8-2.4); POTASSIUM SERUM 4.3 MEQ/L (3.5-5.1); SODIUM LEVEL 139 MEQ/L (136-145); TOTAL PROTEIN 6.7 GM/DL (6.4-8.2); URIC ACID 3.8 MG/DL (3.5-7.2)
[2019-09-08 07:22] LABS: HEMOGLOBIN A1c 9.1 %
[2019-09-08 07:51] LABS: TOTAL 25(OH) VITAMIN D 52.8 NG/ML (30.0-100.0)
== END ==
LOC: M LAB 06:05
PROVIDERS: ATTEND Family Medicine
DX: E11.9 Type 2 diabetes mellitus without complications (principal); I10 Essential (primary) hypertension; M10.9 Gout, unspecified; E55.9 Vitamin D deficiency, unspecified; D69.6 Thrombocytopenia, unspecified; Z12.5 Encounter for screening for malignant neoplasm of prostate; Z79.82 Long term (current) use of aspirin
CPT/HCPCS: 36415; 80053; 82140; 82172; 82306; 83010; 83036; 83735; 83883; 83970; 84439; 84443; 84550; G0103

== ENCOUNTER → 2019-10-17 | Outpatient (CLI) | payer MEDICARE, OTHER ==
[2019-10-17 07:25] LABS: BLOOD UREA NITROGEN 25 MG/DL (7-18); CARBON DIOXIDE LEVEL 25 MEQ/L (21-32); CHLORIDE LEVEL 106 MEQ/L (98-107); CREATININE FOR GFR 1.16 MG/DL (0.70-1.30); GLOMERULAR FILTRATION RATE > 60.0 (>49); GLUCOSE, FASTING 151 MG/DL (70-100); MAGNESIUM LEVEL 1.6 MG/DL (1.8-2.4); POTASSIUM SERUM 4.1 MEQ/L (3.5-5.1); SODIUM LEVEL 140 MEQ/L (136-145)
== END ==
LOC: M LAB 06:02
PROVIDERS: ATTEND Physician Assistant
DX: I50.32 Chronic diastolic (congestive) heart failure (principal); E83.42 Hypomagnesemia

== ENCOUNTER → 2020-02-09 | Outpatient (CLI) | payer MEDICARE, OTHER ==
[~2020-02-09] MED LIST changes: -ASPI81TA85 PO; +ASPI81TA86 PO; +PANT40TA29 PO; -PANT40TA3 PO
[2020-02-09 07:29] LABS: BASO # 0.1 10^3/uL (0.0-0.2); BASO % 0.7 % (0.0-1.0); EOS # 0.3 10^3/uL (0.0-0.5); EOS % 2.4 % (0.0-3.0); HEMATOCRIT 38.4 % (42.0-52.0); HEMOGLOBIN 12.3 g/dl (13.5-17.5); LYMPH # 2.2 10^3/uL (1.5-5.0); LYMPH % 21.7 % (24.0-44.0); MEAN CORPUSCULAR HEMOGLOBIN 29.1 pg (27.0-33.0); MONO # 0.8 10^3/uL (0.0-0.8); MONO % 8.2 % (0.0-5.0); NEUTROPHILS # 6.8 10^3/uL (1.5-8.5); NEUTROPHILS % 66.5 % (36.0-66.0); PLATELET COUNT, AUTOMATED 132 10^3/uL (150-450); RED BLOOD COUNT 4.22 10^6/uL (4.30-6.10); WHITE BLOOD COUNT 10.2 10^3/uL (4.0-10.0)
[2020-02-09 07:46] LABS: HEMOGLOBIN A1c 7.8 %
[2020-02-09 07:59] LABS: ALT/SGPT 20 U/L (12-78); BILIRUBIN,TOTAL 0.5 MG/DL (0.2-1.0); BLOOD UREA NITROGEN 25 MG/DL (7-18); CALCIUM LEVEL 8.9 MG/DL (8.8-10.2); CARBON DIOXIDE LEVEL 28 MEQ/L (21-32); CHLORIDE LEVEL 109 MEQ/L (98-107); CHOLESTEROL LEVEL 87 MG/DL (<200); CREATININE FOR GFR 1.23 MG/DL (0.70-1.30); GLOMERULAR FILTRATION RATE > 60.0 (>49); GLUCOSE, FASTING 180 MG/DL (70-100); HDL CHOLESTEROL 29 MG/DL (>40); LDL CHOLESTEROL 31 MG/DL (<100); NON-HDL-C 58 MG/DL; NT-PRO BNP 138 PG/ML (<125); POTASSIUM SERUM 4.1 MEQ/L (3.5-5.1); SODIUM LEVEL 140 MEQ/L (136-145); TOTAL PROTEIN 6.8 GM/DL (6.4-8.2); TRIGLYCERIDES LEVEL 137 MG/DL (<150)
== END ==
LOC: M LAB 06:33
PROVIDERS: ATTEND Family Medicine
DX: D69.6 Thrombocytopenia, unspecified (principal); E11.9 Type 2 diabetes mellitus without complications

== ENCOUNTER → 2020-02-10 | Outpatient (REF) | payer MEDICARE, OTHER ==
[2020-02-10 11:08] LABS: APPEARANCE, URINE CLEAR (CLEAR); BACTERIA, URINE AUTO NEGATIVE (NEGATIVE); BILIRUBIN, URINE AUTO NEGATIVE (NEGATIVE); BLOOD, URINE BLOOD NEGATIVE (NEGATIVE); COLOR, URINE YELLOW (YELLOW); GLUCOSE, URINE (UA) AUTO NEGATIVE (NEGATIVE); KETONE, URINE AUTO NEGATIVE (NEGATIVE); LEUKOCYTE ESTERASE, URINE AUTO TRACE (NEGATIVE); MUCUS, URINE SMALL (NEGATIVE); NITRITE, URINE AUTO NEGATIVE (NEGATIVE); PROTEIN, URINE AUTO NEGATIVE (NEGATIVE); RBC, URINE AUTO 0 /HPF (0-3); SPECIFIC GRAVITY URINE AUTO 1.023 (1.002-1.035); SQUAMOUS EPITHELIAL CELL UR AU 1 /HPF (0-6); UROBILINOGEN, URINE AUTO 0.2 mg/dL (0.0-2.0); WBC, URINE AUTO 3 /HPF (0-3)
[2020-02-10 11:48] LABS: MALB URINE SIEMENS 8.3 MG/L; MAU/CREAT RATIO 4.4 MCG/MG (0.0-30.0)
== END ==
LOC: M SFHCPLAZ 10:20
PROVIDERS: ATTEND Family Medicine
DX: E11.9 Type 2 diabetes mellitus without complications (principal)

== ENCOUNTER → 2020-04-26 | Outpatient (CLI) | payer MEDICARE, OTHER ==
[2020-04-26 07:19] LABS: CALCIUM LEVEL 8.8 MG/DL (8.8-10.2); CREATININE FOR GFR 1.35 MG/DL (0.70-1.30); GLOMERULAR FILTRATION RATE 56.1 (>49); MAGNESIUM LEVEL 1.9 MG/DL (1.8-2.4); POTASSIUM SERUM 4.2 MEQ/L (3.5-5.1)
== END ==
LOC: M LAB 05:59
PROVIDERS: ATTEND Physician Assistant
DX: I50.32 Chronic diastolic (congestive) heart failure (principal); E83.42 Hypomagnesemia

== ENCOUNTER → 2020-05-04 | Outpatient (CLI) | payer SELFPAY | LOC: M LABSMTC 18:48 | PROVIDERS: ATTEND Pediatrics | DX: Z11.59 Encounter for screening for other viral diseases (principal) ==

== ENCOUNTER → 2020-06-24 | Outpatient (CLI) | payer MEDICARE, OTHER ==
[2020-06-24 06:52] LABS: BASO # 0.1 10^3/uL (0.0-0.2); BASO % 0.7 % (0.0-1.0); EOS # 0.2 10^3/uL (0.0-0.5); EOS % 2.1 % (0.0-3.0); HEMATOCRIT 38.6 % (42.0-52.0); HEMOGLOBIN 12.1 g/dl (13.5-17.5); LYMPH # 2.3 10^3/uL (1.5-5.0); LYMPH % 23.6 % (24.0-44.0); MEAN CORPUSCULAR HEMOGLOBIN 28.7 pg (27.0-33.0); MEAN CORPUSCULAR HGB CONC 31.3 g/dl (32.0-36.5); MEAN CORPUSCULAR VOLUME 91.5 fl (80.0-96.0); MONO # 0.7 10^3/uL (0.0-0.8); MONO % 7.6 % (0.0-5.0); NEUTROPHILS # 6.3 10^3/uL (1.5-8.5); NEUTROPHILS % 65.6 % (36.0-66.0); PLATELET COUNT, AUTOMATED 119 10^3/uL (150-450); RED BLOOD COUNT 4.22 10^6/uL (4.30-6.10); WHITE BLOOD COUNT 9.6 10^3/uL (4.0-10.0)
[2020-06-24 07:08] LABS: HEMOGLOBIN A1c 8.6 %
[2020-06-24 07:22] LABS: ALBUMIN 3.3 GM/DL (3.2-5.2); ALT/SGPT 20 U/L (12-78); BILIRUBIN,TOTAL 0.5 MG/DL (0.2-1.0); BLOOD UREA NITROGEN 27 MG/DL (7-18); CALCIUM LEVEL 9.2 MG/DL (8.8-10.2); CARBON DIOXIDE LEVEL 26 MEQ/L (21-32); CHLORIDE LEVEL 109 MEQ/L (98-107); CHOLESTEROL LEVEL 76 MG/DL (<200); CHOLESTEROL RISK RATIO 2.923 (<5); CREATININE FOR GFR 1.25 MG/DL (0.70-1.30); GLOMERULAR FILTRATION RATE > 60.0 (>49); GLUCOSE, FASTING 171 MG/DL (70-100); HDL CHOLESTEROL 26 MG/DL (>40); LDL CHOLESTEROL 20 MG/DL (<100); NON-HDL-C 50 MG/DL; NT-PRO BNP 110 PG/ML (<125); POTASSIUM SERUM 4.3 MEQ/L (3.5-5.1); SODIUM LEVEL 142 MEQ/L (136-145); TOTAL PROTEIN 6.8 GM/DL (6.4-8.2); TRIGLYCERIDES LEVEL 150 MG/DL (<150)
[2020-06-24 07:23] LABS: FREE T4 0.99 NG/DL (0.76-1.46)
== END ==
LOC: M LAB 06:12
PROVIDERS: ATTEND Family Medicine
DX: E03.9 Hypothyroidism, unspecified (principal); Z79.899 Other long term (current) drug therapy
CPT/HCPCS: 36415; 80053; 80061; 83036; 83880; 84439; 84443; 85025; 85046; G0103

== ENCOUNTER → 2020-11-23 | Outpatient (CLI) | payer MEDICARE, OTHER ==
[~2020-11-23] MED LIST changes: -LISI-538 PO; +LISI20TA33 PO; +OMEP40CA4 PO; -OMEP40CA97 PO
[2020-11-23 06:44] LABS: BASO # 0.1 10^3/uL (0.0-0.2); BASO % 0.6 % (0.0-1.0); EOS # 0.2 10^3/uL (0.0-0.5); EOS % 2.6 % (0.0-3.0); HEMATOCRIT 37.8 % (42.0-52.0); HEMOGLOBIN 12.2 g/dl (13.5-17.5); LYMPH # 2.1 10^3/uL (1.5-5.0); LYMPH % 23.7 % (24.0-44.0); MEAN CORPUSCULAR HEMOGLOBIN 29.6 pg (27.0-33.0); MEAN CORPUSCULAR HGB CONC 32.3 g/dl (32.0-36.5); MEAN CORPUSCULAR VOLUME 91.7 fl (80.0-96.0); MONO # 0.7 10^3/uL (0.0-0.8); MONO % 7.6 % (2.0-8.0); NEUTROPHILS # 5.8 10^3/uL (1.5-8.5); NEUTROPHILS % 65.1 % (36.0-66.0); PLATELET COUNT, AUTOMATED 109 10^3/uL (150-450); RED BLOOD COUNT 4.12 10^6/uL (4.30-6.10)
[2020-11-23 07:17] LABS: ALBUMIN 3.1 GM/DL (3.2-5.2); ALT/SGPT 19 U/L (12-78); BILIRUBIN,TOTAL 0.4 MG/DL (0.2-1.0); BLOOD UREA NITROGEN 29 MG/DL (7-18); CARBON DIOXIDE LEVEL 23 MEQ/L (21-32); CHLORIDE LEVEL 110 MEQ/L (98-107); CREATININE FOR GFR 1.26 MG/DL (0.70-1.30); FERRITIN 147 NG/ML (26-388); GLOMERULAR FILTRATION RATE > 60.0 (>49); GLUCOSE, FASTING 209 MG/DL (70-100); SODIUM LEVEL 139 MEQ/L (136-145); TOTAL PROTEIN 6.4 GM/DL (6.4-8.2); URIC ACID 4.6 MG/DL (3.5-7.2)
[2020-11-23 09:27] LABS: PTH INTACT 90.5 PG/ML (18.5-88.0); TOTAL 25(OH) VITAMIN D 64.7 NG/ML (30.0-100.0)
[2020-11-23 11:55] LABS: CREATININE, URINE 36.5 MG/DL; MALB URINE SIEMENS 7.3 MG/L
== END ==
LOC: M LAB 06:13
PROVIDERS: ATTEND Family Medicine
DX: E55.9 Vitamin D deficiency, unspecified (principal); D50.9 Iron deficiency anemia, unspecified; M10.9 Gout, unspecified; E11.9 Type 2 diabetes mellitus without complications; Z79.899 Other long term (current) drug therapy

== ENCOUNTER → 2021-04-04 | Outpatient (CLI) | payer MEDICARE, OTHER ==
[~2021-04-04] MED LIST changes: +ERGO500029 PO; +GLIM2TAB4 PO
== END ==
LOC: M LABSMTC 10:13
PROVIDERS: ATTEND Anesthesiology
DX: Z01.812 Encounter for preprocedural laboratory examination (principal); Z20.822 Contact with and (suspected) exposure to COVID-19

== ENCOUNTER 2021-04-08 06:48 | Day surgery (SDC) | payer MEDICARE, OTHER ==
[~2021-04-08] VITALS: Ht 175.3 cm; Wt 149.2 kg
[~2021-04-08 06:48] MED LIST changes: +NS 1,000 ML IV ONE
--- OUTSIDE RECORDS SUMMARY | 2021-04-08 06:52 | CCD | Continuity of Care Document ---
Author Author Sumit FRANZ M.D. Organization Unknown Address [address] [place] [id number] Phone [phone] Care Team Providers Care Placement Specialist Name Role Phone Jadiel García MD AUT [phone] Problems Active Problems Provider Date History of malignant neoplasm of colon James Lopez Onset: 04/25/2012 Essential hypertension Onset: 02/20/2013 Social History Type Date Description Comments Sex Unknown ETOH Use Occasionally Tobacco Use Start: Unknown End: Unknown Patient is a former smoker QUIT 13 YEARS AGO Allergies and adverse reactions Description No Known Drug Allergies Medications Active Medications SIG Qnty Indications Ordering Provide r Date Sutab [id number] Tablets as directed 1box Kaushik Franz M.D. 02/17/2021 Glimepiride 2mg Tablets Take Two Tablets By Mouth In The Morning And Take One Tablet By Mouth In The Amanda Unknown Diclofenac Sodium 1% Gel Unknown Vitamin D2 400Unit Tablets Unknown B12 Fast Dissolve 5000mcg Tablets Dispers Unknown Dulcolax Ullin Stool Softener 100mg Capsules Unknown Mupirocin Calcium 2% Cream Apply One Application To Affected Area Two Times A Day Unk nown Metformin HCL ER 500mg Tablets ER 24HR Take Two Tablets By Mouth Two Times A Day Unknow n Rosuvastatin Calcium 20mg Tablets Take One Tablet By Mouth Once A Day Unknown Omeprazole 40mg Capsules DR Take One Capsule By Mouth Every Morning Unknown 0 Ferosul 325(65Fe) mg Tablets Take One Tablet By Mouth Every Day Unknown Allopurinol 300mg Tablets Take One Tablet By Mouth Once A Day Unknown Furosemide 20mg Tablets Unknown Spironolactone 25mg Tablets Unknown Levothyroxine Sodium 88mcg Tablets Unknown Fluticasone Unknown Lisinopril/Hydrochlorothiazide 10-12.5mg Tablets Unknown Aspirin 81mg Tablets Unknown Immunizations Description No Information Available Vital Signs Date Vital Result Comment 02/17/2021 2:21pm Height 69 inches 5'9" Weight 348.00 lb BP Systolic 137 mmHg BP Diastolic 73 mmHg Heart Rate 86 /min BMI (Body Mass Index) 51.4 kg/m2 Weight 157.853 kg Body Temperature 97.0 F 02/20/2013 11:36am Height 69 inches 5'9" Weight 335.00 lb BP Systolic 118 mmHg BP Diastolic 76 mmHg Heart Rate 64 /min BMI (Body Mass Index) 49.5 kg/m2 Weight 151.956 kg Results Description No Information Available Procedures Date Code Description Status 02/17/2021 80365 Office/Outpatient New Moderate M DM 45-59 Minutes Completed Medical Devices Description No Information Available Encounters Type Date Location Provider Dx Diagnosis Office Visit 02/17/2021 2:00p Main Office Kaushik Franz M.D. C 18.7 Malignant neoplasm of sigmoid colon K25.9 Gastric ulcer, unsp as acute or chronic, w/o hemor or perf Assessments Date Code Description Provider 02/17/2021 C18.7 Malignant tumor of sigmoid colon Kaushik Franz M.D. 02/17/2021 K25.9 Gastric ulcer, unspe cified as acute or chronic, without hemorrhage or perforation Kaushik Franz M.D. Plan of Treatment Future Appointment(s):* 03/25/2021 7:45 am - [facility] at Main Office * 04/08/2021 10:15 am - Kaushik Franz M.D. at Main Office 02/17/2021 - Kaushik Franz M.D.* C18.7 Malignant tumor of sigmoid colon* Comments:* 70 yo wm who presents for a surveillance colonoscopy due to a h/o colon cancer at 30 cms/egd for heartburn. Last scope was in 2016. No c/o abdominal pain, weight loss, change in bowel habits, or rectal bleeding. No family h/o colon cancer. No h/o chest pain, or sob. Personal h/o of colon cancer in 2003-resected. Plan:1. Colonoscopy + egd2. Informed consent. * K25.9 Gastric ulcer, unspecified as acute or chronic, without hemorrhage or perforation* Comments:* As above. Functional Status Description No Information Available Mental Status Description No Information Available Referrals Description No Information Available
--- OUTSIDE RECORDS SUMMARY | 2021-04-08 06:52 | CCD | Continuity of Care Document ---
Author Author Sumit SOLOMON MD Organization Unknown Address [address] [place] [address], [place] [address] Phone [phone] Care Team Providers Care Embosser Apprentice Name Role Phone Jadiel García MD AUTM [phone] Shayan Laws DO AUTM [phone] Vesna Mckeon MD AUTM [phone] Problems Active Problems Provider Date Coronary arteriosclerosis Ernesto Trujillo MD Onset: 013 Old myocardial infarction VU Rodriguez-C Onset: 2015 Patient post percutaneous transluminal coronary angioplasty Ernesto Trujillo MD Onset: 08/16/2012 Chronic diastolic heart failure Ernesto Trujillo MD Onset: 0 09/13/2012 Benign hypertensive heart disease with congestive card iac failure Ernesto Trujillo MD Onset: 09/13/2012 Aortic valve disorder VU Rodriguez-C Onset: 03/22/2015 Electrocardiogram abnormal Ernesto Trujillo MD Onset: 2012 Hypercholesterolemia VU Rodriguez-C Onset: 03/27/2016 Obesity Steve Dobbs NP Onset: 03/04/2013 Obstructive sleep apnea syndrome VU Rodriguez-C Onset: 09/15/2013 Chronic pulmonary heart disease VU Rodriguez-C Onset: 09/15/2013 Pure hypercholesterolemia VU Rodriguez-C Onset: 2016 Dietary management surveillance Radha Patrick PA-C Onset: 04/11/2017 Right bundle branch block VU Rodriguez-C Onset: 2016 Social History Type Date Description Comments Sex Unknown ETOH Use Consumes Liquor 3 at [place] Tobacco Use Start: Unknown End: Unknown Patient is a former smoker hx of 43 yrs 1ppd quit 2011 Smoking Status Reviewed: 10/27/20 Patient is a former smoker hx of 43 yrs 1ppd quit 2011 Exercise Type/Frequency Does housework sporadica lly Exercise Type/Frequency Does yardwork sporadical ly Exercise Limitations Fatigue Exercise Limitations Back Pain Exercise Limitations Joint Pain bilateral h ips Allergies, Adverse Reactions, Alerts Description No Known Drug Allergies Medications Active Medications SIG Qnty Indications Ordering Provide r Date Glimepiride 2mg Tablets 1 by mouth once every day Jadiel García MD 04/26/2020 Levothyroxine Sodium 137mcg Tablet s 1 by mouth every day Unknown 04/17/2019 Trulicity 0.75mg/0.5 ML Solution Pen-Inject inject once weekly as directed Unknown 12/30/2018 Aspir-Low 81mg Tablets DR 1 by mouth every day 90tabs Ernesto Trujillo MD 11/13/2018 Metformin HCL 500mg Tablets 2 by mouth twice a day Jadiel García MD 10/17/[address] 1 by mouth every day Jadiel García MD 10/17/2017 Allopurinol 300mg Tablets 1 by mouth every day Jadiel García MD 10/17/2017 Nitrostat 0.4mg Tablets Sub 1 sl every 5min x3 as needed for chest pain 25tabs I25.10 Ernesto Trujillo MD 04/11/2017 Vitamin D (Ergocalciferol) [id number] Capsules 1 by mouth every week Jadiel García MD Diclofenac Sodium 1% Gel apply as directed Jadiel García MD 10/08/2016 Stool Softener 100mg Capsules 1 by mouth every day Unknown 10/08/2016 Vitamin B-12 ER 1000mcg Tablets ER 1 by mouth every day Unknown 09/17/2014 Ferrous Sulfate 325(65Fe) mg Table ts DR 1 by mouth every day Unknown 09/17/2014 Mupirocin 2% Ointment apply as directed as needed Jadiel García MD 03/18/2014 Furosemide 40mg Tablets 1 by mouth every day Jadiel García MD 03/18/2014 Crestor 20mg Tablets 1 by mouth every night at bedtime 90tabs E78.5 Ernesto Trujillo MD 09/15/2013 I25.10 Lisinopril 20mg Tablets 1 po qhs 90tabs I50.32 Ernesto Trujillo MD 09/15/2013 I25.10 Spironolactone 25mg Tablets 1 po qd 90tabs I50.32 Radha Patrick PA-C 08/16/2012 Fluticasone Propionate 50mcg/Act Suspension 1 spray each nostril daily prn Other, Pro vider 03/27/2012 Immunizations Description No Information Available Vital Signs Date Vital Result Comment 10/27/2020 8:55am Weight 345.00 lb Height 69 inches 5'9" BMI (Body Mass Index) 50.9 kg/m2 Heart Rate 80 /min Regular Respiratory Rate 16 /min BP Systolic Right Arm 128 mmHg sitting, large cuf f BP Diastolic Right Arm 76 mmHg sitting, large cu ff BP Systolic Left Arm 126 mmHg sitting BP Diastolic Left Arm 76 mmHg sitting 04/27/2020 8:04am Weight 350.00 lb Height 69 inches 5'9" BMI (Body Mass Index) 51.7 kg/m2 Heart Rate 84 /min Regular Respiratory Rate 16 /min BP Systolic Right Arm 128 mmHg sitting, large cuf f BP Diastolic Right Arm 74 mmHg sitting, large cu ff BP Systolic Left Arm 126 mmHg sitting BP Diastolic Left Arm 74 mmHg sitting Results Test Acquired Date Facility Test Result H/L Range Note Hemoglobin A1c 10/22/2020 [facility] - not interfaced (315)- - Hemoglobin A1c 8.6 CMP 10/22/2020 [facility] - not interfaced (315)- - Albumin Serum/Plasma 3.3 Alt - SGPT 20 Calcium Ser/Plasma Mass/Vol 9.2 Carbon Dioxide Ser/Plasm 26 Chloride Serum/Plasma 109 Alkaline Phosphatase 99 Potassium 4.3 Protein Total 6.8 Sodium 142 Ast - Sgot 10 BUN - Urea Nitrogen 27 Glucose 171 High 70-100 Creatinine For GFR 1.25 Laboratory test finding 10/22/2020 [facility] - not interf aced (315)- - NT Probnp QN Ser/Plas 110 Lipid Profile/Cardiac Risk Pro 10/22/2020 [facility] - not interfaced (315)- - Triglycerides 150 <150 Cholesterol 76 <200 HDL 26 Low >40.0 LDL Cholesterol 20 Chol/HDL Ratio 2.923 <5 Laboratory test finding 10/22/2020 [facility] - not interf aced (315)- - Free T4 0.99 Thyroid Stimulating Hormone 2.680 Procedures Date Code Description Status 01/21/2021 02222 Chronic Care MGMT 20 Mins Clinical Staff Time Per Calendar Month Completed 01/04/2021 91978 TM Interpretation & Report Only Completed 01/04/2021 21613 Myocardial Imaging (PET) Multipl e Studies Completed 12/21/2020 64415 Chronic Care MGMT 20 Mins Clinical Staff Time Per Calendar Month Completed 11/19/2020 75777 Chronic Care MGMT 20 Mins Clinical Staff Time Per Calendar Month Completed 10/29/2020 64744 Holter Monitor MD Review And Rep ort Completed 10/29/2020 82092 Holter Hookup,Recording,Disconne ct Completed 10/27/2020 47276 Office/Outpatient Established Mo d MDM 30-39 Min Completed 10/27/2020 72491 ECG 12-Lead Completed 10/20/2020 15683 Chronic Care MGMT 20 Mins Clinical Staff Time Per Calendar Month Completed 09/24/2020 36937 Chronic Care MGMT 20 Mins Clinical Staff Time Per Calendar Month Completed Medical Devices Description No Information Available Encounters Type Date Location Provider Dx Diagnosis Office Visit 01/21/2021 11:39a Main Office Shayan Solomon MD I25.1 0 Athscl heart disease of [place] coronary artery w/o ang pctrs I50.32 Chronic diastolic (congestiv e) heart failure Office Visit 12/21/2020 10:53a Main Office Shayan Solomon MD I25.1 0 Athscl heart disease of [place] coronary artery w/o ang pctrs I50.32 Chronic diastolic (congestiv e) heart failure Office Visit 11/19/2020 12:28p Main Office Shayan Solomon MD I25.1 0 Athscl heart disease of [place] coronary artery w/o ang pctrs I50.32 Chronic diastolic (congestiv e) heart failure Office Visit 10/27/2020 8:45a Main Office Radha Patrick PA-C I25.1 0 Athscl heart disease of [place] coronary artery w/o ang pctrs I25.2 Old myocardial infarction Z95.5 Presence of coronary angiopl asty implant and graft I50.32 Chronic diastolic (congestiv e) heart failure I11.0 Hypertensive heart disease w ith heart failure I35.1 Nonrheumatic aortic (valve) insufficiency I45.3 Trifascicular block E78.00 Pure hypercholesterolemia, u nspecified G47.33 Obstructive sleep apnea (shannen lt) (pediatric) Z71.3 Dietary counseling and surve illance Office Visit 10/20/2020 8:37a Main Office Shayan Solomon MD I25.1 0 Athscl heart disease of [place] coronary artery w/o ang pctrs I50.32 Chronic diastolic (congestiv e) heart failure Office Visit 09/24/2020 12:49p Main Office Shayan Solomon MD I50.3 2 Chronic diastolic (congestive) heart failure E78.00 Pure hypercholesterolemia, u nspecified Assessments Date Code Description Provider 01/21/2021 I25.10 Atherosclerotic hear t disease of [place] coronary artery without angina pectoris Shayan Solomon MD 01/21/2021 I50.32 Chronic diastolic (congestive) h eart failure Shayan Solomon MD 01/04/2021 R06.02 Shortness of breath Cardiac PET 01/04/2021 I25.10 Atherosclerotic hear t disease of [place] coronary artery without angina pectoris Cardiac PET 01/04/2021 R94.31 Abnormal electrocardiogram [ECG] [EKG] Cardiac PET 12/21/2020 I25.10 Atherosclerotic heart disease of [place] coronary artery with Shayan Solomon MD 12/21/2020 I50.32 Chronic diastolic (congestive) h eart failure Shayan Solomon MD 11/19/2020 I25.10 Atherosclerotic heart disease of [place] coronary artery with Shayan Solomon MD 11/19/2020 I50.32 Chronic diastolic (congestive) h eart failure Shayan Solomon MD 10/29/2020 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 Holter/Event /Telemetry 10/27/2020 I25.10 Atherosclerotic heart disease of [place] coronary artery with Radha Patrick PA-C 10/27/2020 I25.2 Old myocardial infarction Radha Patrick PA-C 10/27/2020 Z95.5 Presence of coronary angioplasty implant and graft Radha Patrick PA-C 10/27/2020 I50.32 Chronic diastolic (congestive) h eart failure Radha Patrick PA-C 10/27/2020 I11.0 Hypertensive heart disease with heart failure Radha Patrick PA-C 10/27/2020 I35.1 Nonrheumatic aortic (valve) insu fficiency Radha Patrick PA-C 10/27/2020 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 Radha david PA-C 10/27/2020 E78.00 Pure hypercholesterolemia, unspe cified Radha Patrick PA-C 10/27/2020 G47.33 Obstructive sleep apnea (adult) (pediatric) Radha Patrick PA-C 10/27/2020 Z71.3 Dietary counseling and surveilla codye Radha Patrick PA-C 10/20/2020 I25.10 Atherosclerotic heart disease of [place] coronary artery with Shayan Solomon MD 10/20/2020 I50.32 Chronic diastolic (congestive) h eart failure Shayna Solomon MD 09/24/2020 I50.32 Chronic diastolic (congestive) h eart failure Shayan Solomon MD 09/24/2020 E78.00 Pure hypercholesterolemia, unspe cified Shayan Solomon MD Plan of Treatment Future Appointment(s):* 05/02/2021 8:45 am - Radha Patrick PA-C at Main Office 10/27/2020 - Radha Patrick PA-C* I25.10 Atherosclerotic heart disease of [place] coronary artery with* Recommendations:* Discuss SGLT2 inhibitor with Dr. García at your next appointment (reduced cardiovascular events in patient's with CAD and diabetes). * I25.2 Old myocardial infarction * Z95.5 Presence of coronary angioplasty implant and graft * I50.32 Chronic diastolic (congestive) heart failure* Recommendations:* Follow a 2 grams sodium diet and 50 ounces fluid restriction per 24 hour and do daily weights. Call the office for weight gain of 3 lbs or more. 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 * All * Follow up:* 6 month follow up. Functional Status Functional Condition Comment Date Status Independent with all ADL's Activ e Mental Status Description No Information Available Referrals Description No Information Available
--- OUTSIDE RECORDS SUMMARY | 2021-04-08 06:52 | CCD | Continuity of Care Document ---
Author Author Sumit SOLOMON MD Organization Unknown Address [address] [place] [address], [place] [address] Phone [phone] Care Team Providers Care Wedger And Gluer Name Role Phone Jadiel García MD AUTM [phone] Shayan Laws DO AUTM [phone] Vesna Mckeon MD AUTM [phone] Problems Active Problems Provider Date Coronary arteriosclerosis [...] Unknown ETOH Use Consumes Liquor 3 at [place] Tobacco Use Start: Unknown End: Unknown Patient is a former smoker hx of 43 yrs 1ppd quit 2011 Smoking Status Reviewed: 10/27/20 Patient is a former smoker hx of 43 yrs 1ppd quit 2011 Exercise Type/Frequency Does housework sporadica lly Exercise Type/Frequency Does yardwork sporadical ly Exercise Limitations Fatigue Exercise Limitations Back Pain Exercise Limitations Joint Pain bilateral h ips Allergies and adverse reactions Description No Known [...] Ernesto Trujillo MD 04/11/2017 Vitamin D (Ergocalciferol) [id number] Capsules 1 by mouth every week Jadiel [...] Result H/L Range Note Hemoglobin A1c 10/22/2020 [facility] - not interfaced (315)- - Hemoglobin A1c 8.6 CMP 10/22/2020 [facility] - not interfaced (315)- - Albumin Serum/Plasma 3.3 Alt - SGPT 20 Calcium Ser/Plasma Mass/Vol 9.2 Carbon Dioxide Ser/Plasm 26 Chloride Serum/Plasma 109 Alkaline Phosphatase 99 Potassium 4.3 Protein Total 6.8 Sodium 142 Ast - Sgot 10 BUN - Urea Nitrogen 27 Glucose 171 High 70-100 Creatinine For GFR 1.25 Laboratory test finding 10/22/2020 [facility] - not interf aced (315)- - NT Probnp QN Ser/Plas 110 Lipid Profile/Cardiac Risk Pro 10/22/2020 [facility] - not interfaced (315)- - Triglycerides 150 <150 Cholesterol 76 <200 HDL 26 Low >40.0 LDL Cholesterol 20 Chol/HDL Ratio 2.923 <5 Laboratory test finding 10/22/2020 [facility] - not interf aced (315)- - Free T4 0.99 Thyroid Stimulating Hormone 2.680 Procedures Date Code Description Status 02/10/2021 21205 Chronic Care MGMT 20 Mins Clinical Staff Time Per Calendar Month Completed 01/21/2021 54239 Chronic Care MGMT 20 Mins Clinical Staff Time Per Calendar Month Completed 01/04/2021 62497 TM Interpretation & Report Only Completed 01/04/2021 50372 Myocardial Imaging (PET) Multipl e Studies Completed 12/21/2020 61071 Chronic Care MGMT 20 Mins Clinical Staff Time Per Calendar Month Completed 11/19/2020 07909 Chronic Care MGMT 20 Mins Clinical Staff Time Per Calendar Month Completed 10/29/2020 34476 Holter Monitor MD Review And Rep ort Completed 10/29/2020 80068 Holter Hookup,Recording,Disconne ct Completed 10/27/2020 13566 Office/Outpatient Established Mo d MDM 30-39 Min Completed 10/27/2020 68946 ECG 12-Lead Completed 10/20/2020 34812 Chronic Care MGMT 20 Mins Clinical Staff Time Per Calendar Month Completed Medical Devices Description No Information Available Encounters Type Date Location Provider Dx Diagnosis Office Visit 02/10/2021 2:14p Main Office Shayan Solomon MD I25.1 0 Athscl heart disease of [place] coronary artery w/o ang pctrs I50.32 Chronic diastolic (congestiv e) heart failure Office Visit 01/21/2021 11:39a Main Office Shayan Solomon MD I25.1 0 Athscl heart disease of [place] coronary artery w/o ang pctrs I50.32 Chronic diastolic (congestiv e) heart failure Office Visit 12/21/2020 10:53a Main Office Shayan Solomon MD I25.1 0 Athscl heart disease of [place] coronary artery w/o ang pctrs I50.32 Chronic diastolic (congestiv e) heart failure Office Visit 11/19/2020 12:28p Main Office Shayan Solomon MD I25.1 0 Athscl heart disease of [place] coronary artery w/o ang pctrs I50.32 Chronic diastolic (congestiv e) heart failure Office Visit 10/27/2020 8:45a Main Office Radha Patrick PA-C I25.1 0 Athscl heart disease of [place] coronary artery w/o ang pctrs I25.2 Old [...] MD I25.1 0 Athscl heart disease of [place] coronary artery w/o ang pctrs I50.32 Chronic diastolic (congestiv e) heart failure Assessments Date Code Description Provider 02/10/2021 I25.10 Atherosclerotic hear t disease of [place] coronary artery without angina pectoris Shayan Solomon MD 02/10/2021 I50.32 Chronic diastolic (congestive) h eart failure Shayan Solomon MD 01/21/2021 I25.10 Atherosclerotic hear t disease of [place] coronary artery without angina pectoris Shayan Solomon MD 01/21/2021 I50.32 Chronic diastolic (congestive) h eart failure Shayan Solomon MD 01/04/2021 R06.02 Shortness of breath Cardiac PET 01/04/2021 I25.10 Atherosclerotic hear t disease of [place] coronary artery without angina pectoris Cardiac PET 01/04/2021 R94.31 Abnormal electrocardiogram [ECG] [EKG] Cardiac PET 12/21/2020 I25.10 Atherosclerotic heart disease of [place] coronary artery with Shayan Solomon MD 12/21/2020 I50.32 Chronic diastolic (congestive) h eart failure Shayan Solomon MD 11/19/2020 I25.10 Atherosclerotic heart disease of [place] coronary artery with Shayan Solomon MD 11/19/2020 I50.32 Chronic diastolic (congestive) h eart failure Shayan Solomon MD 10/29/2020 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 Holter/Event /Telemetry 10/27/2020 I25.10 Atherosclerotic heart disease of [place] coronary artery with Radha Patrick PA-C 10/27/2020 [...] PA-C 10/27/2020 Z71.3 Dietary counseling and surveilla nce Radha Patrick PA-C 10/20/2020 I25.10 Atherosclerotic heart disease of [place] coronary artery with Shayan Solomon MD 10/20/2020 I50.32 Chronic diastolic (congestive) h eart failure Shayan Solomon MD Plan of Treatment Future Appointment(s):* 05/02/2021 8:45 am - Radha Patrick PA-C at Main Office 10/27/2020 - Radha Patrick PA-C* I25.10 Atherosclerotic heart disease of [place] coronary artery with* Recommendations:* Discuss SGLT2 inhibitor [...]
--- OUTSIDE RECORDS SUMMARY | 2021-04-08 06:52 | CCD | Continuity of Care Document ---
Author Author Sumit SOLOMON MD Organization Unknown Address [address] [place] [address], [place] [address] Phone [phone] Care Team Providers Care Paraffiner Name Role Phone Jadiel García MD AUTM [phone] Shayan Laws DO AUTM [phone] Vesna Mckeon MD AUTM [phone] Problems Active Problems Provider Date Coronary arteriosclerosis [...] Unknown ETOH Use Consumes Liquor 3 at [place] Tobacco Use Start: Unknown End: Unknown Patient [...] Ernesto Trujillo MD 04/11/2017 Vitamin D (Ergocalciferol) [id number] Capsules 1 by mouth every week Jadiel [...] Result H/L Range Note Hemoglobin A1c 10/22/2020 [facility] - not interfaced (315)- - Hemoglobin A1c 8.6 CMP 10/22/2020 [facility] - not interfaced (315)- - Albumin Serum/Plasma 3.3 Alt - SGPT 20 Calcium Ser/Plasma Mass/Vol 9.2 Carbon Dioxide Ser/Plasm 26 Chloride Serum/Plasma 109 Alkaline Phosphatase 99 Potassium 4.3 Protein Total 6.8 Sodium 142 Ast - Sgot 10 BUN - Urea Nitrogen 27 Glucose 171 High 70-100 Creatinine For GFR 1.25 Laboratory test finding 10/22/2020 [facility] - not interf aced (315)- - NT Probnp QN Ser/Plas 110 Lipid Profile/Cardiac Risk Pro 10/22/2020 [facility] - not interfaced (315)- - Triglycerides 150 <150 Cholesterol 76 <200 HDL 26 Low >40.0 LDL Cholesterol 20 Chol/HDL Ratio 2.923 <5 Laboratory test finding 10/22/2020 [facility] - not interf aced (315)- - Free T4 0.99 Thyroid Stimulating Hormone 2.680 Procedures Date Code Description Status 01/04/2021 94923 TM Interpretation & Report Only Completed 01/04/2021 59417 Myocardial Imaging (PET) Multipl e Studies Completed 12/21/2020 62476 Chronic Care MGMT 20 Mins Clinical Staff Time Per Calendar Month Completed 11/19/2020 86836 Chronic Care MGMT 20 Mins Clinical Staff Time Per Calendar Month Completed 10/29/2020 36161 Holter Monitor MD Review And Rep ort Completed 10/29/2020 29779 Holter Hookup,Recording,Disconne ct Completed 10/27/2020 60222 Office/Outpatient Established Mo d MDM 30-39 Min Completed 10/27/2020 82079 ECG 12-Lead Completed 10/20/2020 99610 Chronic Care MGMT 20 Mins Clinical Staff Time Per Calendar Month Completed 09/24/2020 11208 Chronic Care MGMT 20 Mins Clinical Staff Time Per Calendar Month Completed 08/23/2020 18546 Chronic Care MGMT 20 Mins Clinical Staff Time Per Calendar Month Completed Medical Devices Description No Information Available Encounters Type Date Location Provider Dx Diagnosis Office Visit 12/21/2020 10:53a Main Office Shayan Solomon MD I25.1 0 Athscl heart disease of [place] coronary artery w/o ang pctrs I50.32 Chronic diastolic (congestiv e) heart failure Office Visit 11/19/2020 12:28p Main Office Shayan Solomon MD I25.1 0 Athscl heart disease of [place] coronary artery w/o ang pctrs I50.32 Chronic diastolic (congestiv e) heart failure Office Visit 10/27/2020 8:45a Main Office Radha Patrick PA-C I25.1 0 Athscl heart disease of [place] coronary artery w/o ang pctrs I25.2 Old [...] MD I25.1 0 Athscl heart disease of [place] coronary artery w/o ang pctrs I50.32 Chronic diastolic (congestiv e) heart failure Office Visit 09/24/2020 12:49p Main Office Shayan Solomon MD I50.3 2 Chronic diastolic (congestive) heart failure E78.00 Pure hypercholesterolemia, u nspecified Office Visit 08/23/2020 2:01p Main Office Shayan Solomon MD I50.3 2 Chronic diastolic (congestive) heart failure I35.1 Nonrheumatic aortic (valve) insufficiency E78.00 Pure hypercholesterolemia, u nspecified G47.33 Obstructive sleep apnea (shannen lt) (pediatric) Assessments Date Code Description Provider 01/04/2021 R06.02 Shortness of breath Cardiac PET 01/04/2021 I25.10 Atherosclerotic hear t disease of [place] coronary artery without angina pectoris Cardiac PET 01/04/2021 R94.31 Abnormal electrocardiogram [ECG] [EKG] Cardiac PET 12/21/2020 I25.10 Atherosclerotic heart disease of [place] coronary artery with Shayan Solomon MD 12/21/2020 I50.32 Chronic diastolic (congestive) h eart failure Shayan Solomon MD 11/19/2020 I25.10 Atherosclerotic heart disease of [place] coronary artery with Shayan Solomon MD 11/19/2020 I50.32 Chronic diastolic (congestive) h eart failure Shayan Solomon MD 10/29/2020 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 Holter/Event /Telemetry 10/27/2020 I25.10 Atherosclerotic heart disease of [place] coronary artery with Radha Patrick PA-C 10/27/2020 [...] PA-C 10/20/2020 I25.10 Atherosclerotic heart disease of [place] coronary artery with Shayan Sloomon MD 10/20/2020 I50.32 Chronic diastolic (congestive) h eart failure Shayan Solomon MD 09/24/2020 I50.32 Chronic diastolic (congestive) h eart failure Shayan Solomon MD 09/24/2020 E78.00 Pure hypercholesterolemia, unspe cified Shayan Solomon MD 08/23/2020 I50.32 Chronic diastolic (congestive) h eart failure Shayan Solomon MD 08/23/2020 I35.1 Nonrheumatic aortic (valve) insu fficiency Shayan Solomon MD 08/23/2020 E78.00 Pure hypercholesterolemia, unspe cified Shayan Solomon MD 08/23/2020 G47.33 Obstructive sleep apnea (adult) (pediatric) Shayan Solomon MD Plan of Treatment Future Appointment(s):* 05/02/2021 8:45 am - Radha Patrick PA-C at Main Office 10/27/2020 - Radha Patrick PA-C* I25.10 Atherosclerotic heart disease of [place] coronary artery with* Recommendations:* Discuss SGLT2 inhibitor [...]
--- OUTSIDE RECORDS SUMMARY | 2021-04-08 06:52 | CCD | Continuity of Care Document ---
Author Author Sumit SOLOMON MD Organization Unknown Address [address] [place] [address], [place] [address] Phone [phone] Care Team Providers Care Building Construction Supervisor Name Role Phone Jadiel García MD AUTM [phone] Shayan Laws DO AUTM [phone] Vesna Mckeon MD AUTM [phone] Problems Active Problems Provider Date Coronary arteriosclerosis [...] Unknown ETOH Use Consumes Liquor 3 at [place] Tobacco Use Start: Unknown End: Unknown Patient [...] Ernesto Trujillo MD 04/11/2017 Vitamin D (Ergocalciferol) [id number] Capsules 1 by mouth every week Jadiel [...] Result H/L Range Note Hemoglobin A1c 10/22/2020 [facility] - not interfaced (315)- - Hemoglobin A1c 8.6 CMP 10/22/2020 [facility] - not interfaced (315)- - Albumin Serum/Plasma 3.3 Alt - SGPT 20 Calcium Ser/Plasma Mass/Vol 9.2 Carbon Dioxide Ser/Plasm 26 Chloride Serum/Plasma 109 Alkaline Phosphatase 99 Potassium 4.3 Protein Total 6.8 Sodium 142 Ast - Sgot 10 BUN - Urea Nitrogen 27 Glucose 171 High 70-100 Creatinine For GFR 1.25 Laboratory test finding 10/22/2020 [facility] - not interf aced (315)- - NT Probnp QN Ser/Plas 110 Lipid Profile/Cardiac Risk Pro 10/22/2020 [facility] - not interfaced (315)- - Triglycerides 150 <150 Cholesterol 76 <200 HDL 26 Low >40.0 LDL Cholesterol 20 Chol/HDL Ratio 2.923 <5 Laboratory test finding 10/22/2020 [facility] - not interf aced (315)- - Free T4 0.99 Thyroid Stimulating Hormone 2.680 Procedures Date Code Description Status 01/21/2021 86907 Chronic Care MGMT 20 Mins Clinical Staff Time Per Calendar Month Completed 01/04/2021 98850 TM Interpretation & Report Only Completed 01/04/2021 87645 Myocardial Imaging (PET) Multipl e Studies Completed 12/21/2020 38699 Chronic Care MGMT 20 Mins Clinical Staff Time Per Calendar Month Completed 11/19/2020 55511 Chronic Care MGMT 20 Mins Clinical Staff Time Per Calendar Month Completed 10/29/2020 95496 Holter Monitor MD Review And Rep ort Completed 10/29/2020 54219 Holter Hookup,Recording,Disconne ct Completed 10/27/2020 29485 Office/Outpatient Established Mo d MDM 30-39 Min Completed 10/27/2020 35086 ECG 12-Lead Completed 10/20/2020 32673 Chronic Care MGMT 20 Mins Clinical Staff Time Per Calendar Month Completed 09/24/2020 76426 Chronic Care MGMT 20 Mins Clinical Staff Time Per Calendar Month Completed Medical Devices Description No Information Available Encounters Type Date Location Provider Dx Diagnosis Office Visit 01/21/2021 11:39a Main Office Shayan Solomon MD I25.1 0 Athscl heart disease of [place] coronary artery w/o ang pctrs I50.32 Chronic diastolic (congestiv e) heart failure Office Visit 12/21/2020 10:53a Main Office Shayan Solomon MD I25.1 0 Athscl heart disease of [place] coronary artery w/o ang pctrs I50.32 Chronic diastolic (congestiv e) heart failure Office Visit 11/19/2020 12:28p Main Office Shayan Solomon MD I25.1 0 Athscl heart disease of [place] coronary artery w/o ang pctrs I50.32 Chronic diastolic (congestiv e) heart failure Office Visit 10/27/2020 8:45a Main Office Radha Patrick PA-C I25.1 0 Athscl heart disease of [place] coronary artery w/o ang pctrs I25.2 Old [...] MD I25.1 0 Athscl heart disease of [place] coronary artery w/o ang pctrs I50.32 Chronic diastolic (congestiv e) heart failure Office Visit 09/24/2020 12:49p Main Office Shayan Solomon MD I50.3 2 Chronic diastolic (congestive) heart failure E78.00 Pure hypercholesterolemia, u nspecified Assessments Date Code Description Provider 01/21/2021 I25.10 Atherosclerotic hear t disease of [place] coronary artery without angina pectoris Shayan Solomon MD 01/21/2021 I50.32 Chronic diastolic (congestive) h eart failure Shayan Solomon MD 01/04/2021 R06.02 Shortness of breath Cardiac PET 01/04/2021 I25.10 Atherosclerotic hear t disease of [place] coronary artery without angina pectoris Cardiac PET 01/04/2021 R94.31 Abnormal electrocardiogram [ECG] [EKG] Cardiac PET 12/21/2020 I25.10 Atherosclerotic heart disease of [place] coronary artery with Shayan Solomon MD 12/21/2020 I50.32 Chronic diastolic (congestive) h eart failure Shayan Solomon MD 11/19/2020 I25.10 Atherosclerotic heart disease of [place] coronary artery with Shayan Solomon MD 11/19/2020 I50.32 Chronic diastolic (congestive) h eart failure Shayan Solomon MD 10/29/2020 I45.3 Trifascicular block Holter/Event /Telemetry 10/27/2020 I25.10 Atherosclerotic heart disease of [place] coronary artery with Radha Patrick PA-C 10/27/2020 [...] PA-C 10/20/2020 I25.10 Atherosclerotic heart disease of [place] coronary artery with Shayan Solomon MD 10/20/2020 I50.32 Chronic diastolic (congestive) h eart failure Shayan Solomon MD 09/24/2020 I50.32 Chronic diastolic (congestive) h eart failure Shayan Solomon MD 09/24/2020 E78.00 Pure hypercholesterolemia, unspe cified Shayan Solomon MD Plan of Treatment Future Appointment(s):* 05/02/2021 8:45 am - Radha Patrick PA-C at Main Office 10/27/2020 - Radha Patrick PA-C* I25.10 Atherosclerotic heart disease of [place] coronary artery with* Recommendations:* Discuss SGLT2 inhibitor [...]
--- OUTSIDE RECORDS SUMMARY | 2021-04-08 06:52 | CCD ---
Continuity of Care Document (CCD) Created on: 01/27/2021 Sumit Winston II External Reference #: [id number] Sex: Male Author Author Sumit SOLOMON MD Organization Unknown Address [address] [place] [address], [place] [address] Phone [phone] Care Team Providers Care Superintendent Pressure Name Role Phone Jadiel García MD AUTM [phone] Shayan Laws DO AUTM [phone] Vesna Mckeon MD AUTM [phone] Problems Active Problems Provider Date Coronary arteriosclerosis [...] Unknown ETOH Use Consumes Liquor 3 at [place] Tobacco Use Start: Unknown End: Unknown Patient [...] Ernesto Trujillo MD 04/11/2017 Vitamin D (Ergocalciferol) [id number] Capsules 1 by mouth every week Jadiel [...] Result H/L Range Note Hemoglobin A1c 10/22/2020 [facility] - not interfaced (315)- - Hemoglobin A1c 8.6 CMP 10/22/2020 [facility] - not interfaced (315)- - Albumin Serum/Plasma 3.3 Alt - SGPT 20 Calcium Ser/Plasma Mass/Vol 9.2 Carbon Dioxide Ser/Plasm 26 Chloride Serum/Plasma 109 Alkaline Phosphatase 99 Potassium 4.3 Protein Total 6.8 Sodium 142 Ast - Sgot 10 BUN - Urea Nitrogen 27 Glucose 171 High 70-100 Creatinine For GFR 1.25 Laboratory test finding 10/22/2020 [facility] - not interf aced (315)- - NT Probnp QN Ser/Plas 110 Lipid Profile/Cardiac Risk Pro 10/22/2020 [facility] - not interfaced (315)- - Triglycerides 150 <150 Cholesterol 76 <200 HDL 26 Low >40.0 LDL Cholesterol 20 Chol/HDL Ratio 2.923 <5 Laboratory test finding 10/22/2020 [facility] - not interf aced (315)- - Free T4 0.99 Thyroid Stimulating Hormone 2.680 Procedures Date Code Description Status 01/04/2021 28844 TM Interpretation & Report Only Completed 01/04/2021 65051 Myocardial Imaging (PET) Multipl e Studies Completed 12/21/2020 58721 Chronic Care MGMT 20 Mins Clinical Staff Time Per Calendar Month Completed 11/19/2020 15240 Chronic Care MGMT 20 Mins Clinical Staff Time Per Calendar Month Completed 10/29/2020 29905 Holter Monitor MD Review And Rep ort Completed 10/29/2020 36965 Holter Hookup,Recording,Disconne ct Completed 10/27/2020 19494 Office/Outpatient Established Mo d MDM 30-39 Min Completed 10/27/2020 52017 ECG 12-Lead Completed 10/20/2020 90267 Chronic Care MGMT 20 Mins Clinical Staff Time Per Calendar Month Completed 09/24/2020 10069 Chronic Care MGMT 20 Mins Clinical Staff Time Per Calendar Month Completed 08/23/2020 04649 Chronic Care MGMT 20 Mins Clinical Staff Time Per Calendar Month Completed Medical Devices Description No Information Available Encounters Type Date Location Provider Dx Diagnosis Office Visit 12/21/2020 10:53a Main Office Shayan Solomon MD I25.1 0 Athscl heart disease of [place] coronary artery w/o ang pctrs I50.32 Chronic diastolic (congestiv e) heart failure Office Visit 11/19/2020 12:28p Main Office Shayan Solomon MD I25.1 0 Athscl heart disease of [place] coronary artery w/o ang pctrs I50.32 Chronic diastolic (congestiv e) heart failure Office Visit 10/27/2020 8:45a Main Office Radha Patrick PA-C I25.1 0 Athscl heart disease of [place] coronary artery w/o ang pctrs I25.2 Old [...] MD I25.1 0 Athscl heart disease of [place] coronary artery w/o ang pctrs I50.32 Chronic [...] 01/04/2021 I25.10 Atherosclerotic hear t disease of [place] coronary artery without angina pectoris Cardiac PET 01/04/2021 R94.31 Abnormal electrocardiogram [ECG] [EKG] Cardiac PET 12/21/2020 I25.10 Atherosclerotic heart disease of [place] coronary artery with Shayan Solomon MD 12/21/2020 I50.32 Chronic diastolic (congestive) h eart failure Shayan Solomon MD 11/19/2020 I25.10 Atherosclerotic heart disease of [place] coronary artery with Shayan Solomon MD 11/19/2020 I50.32 Chronic diastolic (congestive) h eart failure Shayan Solomon MD 10/29/2020 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 Holter/Event /Telemetry 10/27/2020 I25.10 Atherosclerotic heart disease of [place] coronary artery with Radha Patrick PA-C 10/27/2020 [...] PA-C 10/20/2020 I25.10 Atherosclerotic heart disease of [place] coronary artery with Shayan Solomon MD 10/20/2020 [...] 08/23/2020 E78.00 Pure hypercholesterolemia, unspe cified Shayan oSlomon MD 08/23/2020 G47.33 Obstructive sleep apnea (adult) (pediatric) Shayan Solomon MD Plan of Treatment Future Appointment(s):* 05/02/2021 8:45 am - Radha Patrick PA-C at Main Office 10/27/2020 - Radha Patrick PA-C* I25.10 Atherosclerotic heart disease of [place] coronary artery with* Recommendations:* Discuss SGLT2 inhibitor [...]
--- OUTSIDE RECORDS SUMMARY | 2021-04-08 06:52 | CCD | Continuity of Care Document ---
Author Author Sumit SOLOMON MD Organization Unknown Address [address] [place] [address], [place] [address] Phone [phone] Care Team Providers Care Speech Language Pathologist Assistant Name Role Phone Jadiel García MD AUTM [phone] Shayan Laws DO AUTM [phone] Vesna Mckeon MD AUTM [phone] Problems Active Problems Provider Date Coronary arteriosclerosis [...] Unknown ETOH Use Consumes Liquor 3 at [place] Tobacco Use Start: Unknown End: Unknown Patient [...] Ernesto Trujillo MD 04/11/2017 Vitamin D (Ergocalciferol) 91059Fqup Capsules 1 by mouth every week Jadiel [...] Result H/L Range Note Hemoglobin A1c 10/22/2020 [facility] - not interfaced (315)- - Hemoglobin A1c 8.6 CMP 10/22/2020 [facility] - not interfaced (315)- - Albumin Serum/Plasma 3.3 Alt - SGPT 20 Calcium Ser/Plasma Mass/Vol 9.2 Carbon Dioxide Ser/Plasm 26 Chloride Serum/Plasma 109 Alkaline Phosphatase 99 Potassium 4.3 Protein Total 6.8 Sodium 142 Ast - Sgot 10 BUN - Urea Nitrogen 27 Glucose 171 High 70-100 Creatinine For GFR 1.25 Laboratory test finding 10/22/2020 [facility] - not interf aced (315)- - NT Probnp QN Ser/Plas 110 Lipid Profile/Cardiac Risk Pro 10/22/2020 [facility] - not interfaced (315)- - Triglycerides 150 <150 Cholesterol 76 <200 HDL 26 Low >40.0 LDL Cholesterol 20 Chol/HDL Ratio 2.923 <5 Laboratory test finding 10/22/2020 [facility] - not interf aced (315)- - Free T4 0.99 Thyroid Stimulating Hormone 2.680 Procedures Date Code Description Status 02/10/2021 75073 Chronic Care MGMT 20 Mins Clinical Staff Time Per Calendar Month Completed 01/21/2021 88811 Chronic Care MGMT 20 Mins Clinical Staff Time Per Calendar Month Completed 01/04/2021 70096 TM Interpretation & Report Only Completed 01/04/2021 10384 Myocardial Imaging (PET) Multipl e Studies Completed 12/21/2020 51509 Chronic Care MGMT 20 Mins Clinical Staff Time Per Calendar Month Completed 11/19/2020 25339 Chronic Care MGMT 20 Mins Clinical Staff Time Per Calendar Month Completed 10/29/2020 54441 Holter Monitor MD Review And Rep ort Completed 10/29/2020 56375 Holter Hookup,Recording,Disconne ct Completed 10/27/2020 10121 Office/Outpatient Established Mo d MDM 30-39 Min Completed 10/27/2020 38105 ECG 12-Lead Completed 10/20/2020 55033 Chronic Care MGMT 20 Mins Clinical Staff Time Per Calendar Month Completed Medical Devices Description No Information Available Encounters Type Date Location Provider Dx Diagnosis Office Visit 02/10/2021 2:14p Main Office Shayan Solomon MD I25.1 0 Athscl heart disease of [place] coronary artery w/o ang pctrs I50.32 Chronic diastolic (congestiv e) heart failure Office Visit 01/21/2021 11:39a Main Office Shayan Solomon MD I25.1 0 Athscl heart disease of [place] coronary artery w/o ang pctrs I50.32 Chronic diastolic (congestiv e) heart failure Office Visit 12/21/2020 10:53a Main Office Shayan Solomon MD I25.1 0 Athscl heart disease of [place] coronary artery w/o ang pctrs I50.32 Chronic diastolic (congestiv e) heart failure Office Visit 11/19/2020 12:28p Main Office Shayan Solomon MD I25.1 0 Athscl heart disease of [place] coronary artery w/o ang pctrs I50.32 Chronic diastolic (congestiv e) heart failure Office Visit 10/27/2020 8:45a Main Office Radha Patrick PA-C I25.1 0 Athscl heart disease of [place] coronary artery w/o ang pctrs I25.2 Old [...] MD I25.1 0 Athscl heart disease of [place] coronary artery w/o ang pctrs I50.32 Chronic diastolic (congestiv e) heart failure Assessments Date Code Description Provider 02/10/2021 I25.10 Atherosclerotic hear t disease of [place] coronary artery without angina pectoris Shayan Solomon MD 02/10/2021 I50.32 Chronic diastolic (congestive) h eart failure Shayan Solomon MD 01/21/2021 I25.10 Atherosclerotic hear t disease of [place] coronary artery without angina pectoris Shayan Solomon MD 01/21/2021 I50.32 Chronic diastolic (congestive) h eart failure Shayan Solomon MD 01/04/2021 R06.02 Shortness of breath Cardiac PET 01/04/2021 I25.10 Atherosclerotic hear t disease of [place] coronary artery without angina pectoris Cardiac PET 01/04/2021 R94.31 Abnormal electrocardiogram [ECG] [EKG] Cardiac PET 12/21/2020 I25.10 Atherosclerotic heart disease of [place] coronary artery with Shayan Solomon MD 12/21/2020 I50.32 Chronic diastolic (congestive) h eart failure Shayan Solomon MD 11/19/2020 I25.10 Atherosclerotic heart disease of [place] coronary artery with Shayan Solomon MD 11/19/2020 I50.32 Chronic diastolic (congestive) h eart failure Shayan Solomon MD 10/29/2020 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
--- OUTSIDE RECORDS SUMMARY | 2021-04-08 06:53 | CCD ---
Author Author [facility] Organization [facility] Address Unknown Phone Unavailable Care Team Providers Care Executive Director Contract Shop Name Role Phone Ovidio Franz MD Unavailable Unavailable Ovidio Franz MD Unavailable Unavailable Ovidio Franz MD Unavailable Unavailable Ovidio Franz MD Unavailable Unavailable Ovidio Franz MD Unavailable Unavailable Ovidio Franz MD Unavailable Unavailable Ovidio Franz MD Unavailable Unavailable Ovidio Franz MD Unavailable Unavailable Ovidio Franz MD Unavailable Unavailable Ovidio Franz MD Unavailable Unavailable Ovidio Franz MD Unavailable Unavailable Ovidio Franz MD Unavailable Unavailable Ovidio Franz MD Unavailable Unavailable Ovidio Franz MD Unavailable Unavailable Ovidio Franz MD Unavailable Unavailable Ovidio Franz MD Unavailable Unavailable Ovidio Franz MD Unavailable Unavailable Ovidio Franz MD Unavailable Unavailable Ovidio Franz MD Unavailable Unavailable Ovidio Franz MD Unavailable Unavailable Ovidio Franz MD Unavailable Unavailable Ovidio Franz MD Unavailable Unavailable Ovidio Franz MD Unavailable Unavailable Ovidio Franz MD Unavailable Unavailable Ovidio Franz MD Unavailable Unavailable Ovidio Franz MD Unavailable Unavailable Ovidio Franz MD Unavailable Unavailable Ovidio Franz MD Unavailable Unavailable Ovidio Franz MD Unavailable Unavailable Ovidio Franz MD Unavailable Unavailable Ovidio Franz MD Unavailable Unavailable Ovidio Franz MD Unavailable Unavailable Osei, S Kaushik MD Unavailable Unavailable Osei, S Kaushik MD Unavailable Unavailable Osei, S Kaushik MD Unavailable Unavailable Osei, S Kaushik MD Unavailable Unavailable Osei, S Kaushik MD Unavailable Unavailable Osei, S Kaushik MD Unavailable Unavailable Osei, S Kaushik MD Unavailable Unavailable Osei, S Kaushik MD Unavailable Unavailable Osei, S Kaushik MD Unavailable Unavailable Osei, S Kaushik MD Unavailable Unavailable Osei, S Kaushik MD Unavailable Unavailable Osei, S Kaushik MD Unavailable Unavailable Osei, S Kaushik MD Unavailable Unavailable Osei, S Kaushik MD Unavailable Unavailable Osei, S Kaushik MD Unavailable Unavailable Osei, S Kaushik MD Unavailable Unavailable Osei, S Kaushik MD Unavailable Unavailable Osei, S Kaushik MD Unavailable Unavailable Symenow, Emelyn Radha PA Unavailable Unavailable Symenow, Emelyn Radha PA Unavailable Unavailable Symenow, Emelyn Radha PA Unavailable Unavailable Symenow, Emelyn Radha PA Unavailable Unavailable Symenow, Emelyn Radha PA Unavailable Unavailable Symenow, Emelyn Radha PA Unavailable Unavailable Symenow, Emelyn Radha PA Unavailable Unavailable Symenow, Emelyn Radha PA Unavailable Unavailable Symenow, Emelyn Radha PA Unavailable Unavailable Symenow, Emelyn Radha PA Unavailable Unavailable Symenow, Emelyn Radha PA Unavailable Unavailable Symenow, Emelyn Radha PA Unavailable Unavailable Symenow, Emelyn Radha PA Unavailable Unavailable Symenow, Emelyn Radha PA Unavailable Unavailable Symenow, Emelyn Radha PA Unavailable Unavailable Symenow, Emelyn Radha PA Unavailable Unavailable Symenow, Emelyn Radha PA Unavailable Unavailable Symenow, Emelyn Radha PA Unavailable Unavailable Symenow, Emelyn Radha PA Unavailable Unavailable Symenow, Emelyn Radha PA Unavailable Unavailable Symenow, Emelyn Radha PA Unavailable Unavailable Symenow, Emelyn Radha PA Unavailable Unavailable Symenow, Emelyn Radha PA Unavailable Unavailable Symenow, Emelyn Radha PA Unavailable Unavailable Symenow, Emelyn Radha PA Unavailable Unavailable Symenow, Emelyn Radha PA Unavailable Unavailable Symenow, Emelyn Radha PA Unavailable Unavailable Symenow, Emelyn Radha PA Unavailable Unavailable Symenow, Emelyn Radha PA Unavailable Unavailable Symenow, Emelyn Radha PA Unavailable Unavailable Symenow, Emelyn Radha PA Unavailable Unavailable Symenow, Emelyn Radha PA Unavailable Unavailable Symenow, Emelyn Radha PA Unavailable Unavailable Symenow, Emelyn Radha PA Unavailable Unavailable ANTECOL, Keyana BYNUM MD Unavailable Unavailable ANTECOL, Keyana BYNUM MD Unavailable Unavailable ANTECOL, Keyana BYNUM MD Unavailable Unavailable ANTECOL, Keyana BYNUM MD Unavailable Unavailable ANTECOL, Keyana BYNUM MD Unavailable Unavailable ANTECOL, Keyana BYNUM MD Unavailable Unavailable ANTECOL, Keyana BYNUM MD Unavailable Unavailable ANTECOL, Keyana BYNUM MD Unavailable Unavailable ANTECOL, Keyana BYNUM MD Unavailable Unavailable ANTECOL, Keyana BYNUM MD Unavailable Unavailable ANTECOL, Keyana BYNUM MD Unavailable Unavailable ANTECOL, Keyana BYNUM MD Unavailable Unavailable ANTECOL, Keyana BYNUM MD Unavailable Unavailable ANTECOL, Keyana BYNUM MD Unavailable Unavailable ANTECOL, Keyana BYNUM MD Unavailable Unavailable ANTECOL, Keyana BYNUM MD Unavailable Unavailable ANTECOL, Keyana BYNUM MD Unavailable Unavailable ANTECOL, Keyana BYNUM MD Unavailable Unavailable ANTECOL, Keyana BYNUM MD Unavailable Unavailable ANTECOL, Keyana BYNUM MD Unavailable Unavailable ANTECOL, Keyana BYNUM MD Unavailable Unavailable ANTECOL, Keyana BYNUM MD Unavailable Unavailable ANTECOL, Keyana BYNUM MD Unavailable Unavailable ANTECOL, Keyana BYNUM MD Unavailable Unavailable ANTECOL, Keyana BYNUM MD Unavailable Unavailable ANTECOL, Keyana BYNUM MD Unavailable Unavailable ANTECOL, Keyana BYNUM MD Unavailable Unavailable ANTECOL, Keyana BYNUM MD Unavailable Unavailable ANTECOL, Keyana BYNUM MD Unavailable Unavailable ANTECOL, Keyana BYNUM MD Unavailable Unavailable ANTECOL, Keyana BYNUM MD Unavailable Unavailable ANTECOL, Keyana BYNUM MD Unavailable Unavailable ANTECOL, Keyana BYNUM MD Unavailable Unavailable ANTECOL, Keyana BYNUM MD Unavailable Unavailable ANTECOL, Keyana BYNUM MD Unavailable Unavailable ANTECOL, Keyana BYNUM MD Unavailable Unavailable ANTECOL, Keyana BYNUM MD Unavailable Unavailable ANTECOL, Keyana BYNUM MD Unavailable Unavailable ANTECOL, Keyana BYNUM MD Unavailable Unavailable ANTECOL, Keyana BYNUM MD Unavailable Unavailable ANTECOL, Keyana BYNUM MD Unavailable Unavailable ANTECOL, Keyana BYNUM MD Unavailable Unavailable ANTECOL, Keyana BYNUM MD Unavailable Unavailable ANTECOL, Keyana BYNUM MD Unavailable Unavailable ANTECOL, Keyana BYNUM MD Unavailable Unavailable ANTECOL, Keyana BYNUM MD Unavailable Unavailable ANTECOL, Keyana BYNUM MD Unavailable Unavailable ANTECOL, Keyana BYNUM MD Unavailable Unavailable ANTECOL, Keyana BYNUM MD Unavailable Unavailable ANTECOL, Keyana BYNUM MD Unavailable Unavailable ANTECOLKeyana MD Unavailable Unavailable ANTECOLKeyana MD Unavailable Unavailable ANTECOLKeyana MD Unavailable Unavailable ANTECOLKeyana MD Unavailable Unavailable Re-disclosure Warning The records that you are about to access may contain information from federally-assisted alcohol or drug abuse programs. If such information is present, then the following federally mandated warning applies: This information has been disclosed to you from records protected by federal confidentiality rules (42 CFR part 2). The federal rules prohibit you from making any further disclosure of this information unless further disclosure is expressly permitted by the written consent of the person to whom it pertains or as otherwise permitted by 42 CFR part 2. A general authorization for the release of medical or other information is NOT sufficient for this purpose. The Federal rules restrict any use of the information to criminally investigate or prosecute any alcohol or drug abuse patient.The records that you are about to access may contain highly sensitive health information, the redisclosure of which is protected by Article 27-F of the [facility] [place] Public Health law. If you continue you may have access to information: Regarding HIV / AIDS; Provided by facilities licensed or operated by the [facility] [place] Office of Mental Health; or Provided by the [facility] [place] Office for People With Developmental Disabilities. If such information is present, then the following [facility] [place] mandated warning applies: This information has been disclosed to you from confidential records which are protected by state law. State law prohibits you from making any further disclosure of this information without the specific written consent of the person to whom it pertains, or as otherwise permitted by law. Any unauthorized further disclosure in violation of state law may result in a fine or group home sentence or both. A general authorization for the release of medical or other information is NOT sufficient authorization for further disc losure. Family History Family Member Name Family Member Gender Family Member Status Date o f Status Description Data Source(s) Unknown Unknown Problem [facility] ([facility]) Unknown Unknown Problem [facility] ([facility]) Unknown Unknown Problem [facility] ([facility]) father Encounters Encounter Providers Location Date Indications Data Source(s ) Outpatient Attender: Kaushik Franz MD Main Office 02/17/2021 02:00:00 PM EDT MED[facility] ([facility]) Office Visit Attender: FLETCHER CRUZ MD Main Office 02/10/2021 02: 14:00 PM EDT [facility] ([facility]) Office Visit Attender: FLETCHER CRUZ MD Main Office 01/21/2021 11: 39:00 AM EDT [facility] ([facility]) [place] [address] [facility] [address] 01/04/2021 12:00:00 AM EDT eCW1 ([facility]) Office Visit Attender: FLETCHER CRUZ MD Main Office 12/21/2020 10: 53:00 AM EDT MED[facility] ([facility]) Outpatient [address] [facility] [place] [address] 12/09/2020 12:00:00 AM EDT eCW1 ([facility]) Office Visit Attender: FLETCHER CRUZ MD Main Office 11/19/2020 12: 28:00 PM EDT MED[facility] ([facility]) Outpatient Attender: Radha WOMACK Main Office 10/27/2020 08:45:00 AM EDT [facility] ([facility]) Office Visit Attender: FLETCHER CRUZ MD Main Office 10/20/2020 08: 37:00 AM EDT [facility] ([facility]) Office Visit Attender: FLETCHER CRUZ MD Main Office 09/24/2020 12: 49:00 PM EDT [facility] ([facility]) [place] [address] [facility] [address] 09/21/2020 12:00:00 AM EDT [facility]1 [facility]) [place] [address] [facility] [place] [address] 09/21/2020 12:00:00 AM EDT eCW1 ([facility]) Unknown [address] [facility] [place] [address] 08/30/2020 12:00:00 AM EDT eCW1 ([facility]) Office Visit Attender: FLETCHER CRUZ MD Main Office 08/23/2020 02: 01:00 PM EDT MED[facility] ([facility]) Office Visit Attender: FLETCHER CRUZ MD Main Office 07/22/2020 09: 26:00 AM EST [facility] ([facility]) [place] [address] [facility] [address] 2020 12:00:00 AM EST eCW1 ([facility]) Office Visit Attender: FLETCHER CRUZ MD Main Office 06/15/2020 03: 09:00 PM EST [facility] ([facility]) [place] [address] [facility] [address] 05/17/2020 12:00:00 AM EST eCW1 ([facility]) Office Visit Attender: FLETCHER CRUZ MD Main Office 05/06/2020 10: 06:00 AM EST MED[facility] ([facility]) Outpatient Attender: Radha WOMACK Main Office 04/27/2020 07:15:00 AM EST [facility] ([facility]) [place] [address] [facility] [address] 04/12/2020 12:00:00 AM EST eCW1 ([facility]) [place] [address] [facility] [address] 04/06/2020 12:00:00 AM EST [facility]1 ([facility] Office Visit Attender: FLETCHER CRUZ MD Main Office 04/02/2020 12: 01:00 PM EST [facility] ([facility]) [place] [address] [facility] [address] 04/01/2020 12:00:00 AM EST eCW1 ([facility]) [place] [address] [facility] [address] 03/16/2020 12:00:00 AM EDT eCW1 ([facility]) Unknown [address] [facility] [place] [address] 03/08/2020 12:00:00 AM EDT eCW1 ([facility]) Office Visit Attender: FLETCHER CRUZ MD Main Office 03/03/2020 01: 42:00 PM EDT MED[facility] ([facility]) [facility] [place] [address] [facility] [address] 02/13/2020 12:00:00 AM EDT eCW1 ([facility]) Immunizations Vaccine Date Status Description Data Source(s) COVID-19 VACCINE Moderna 08/03/2020 12:00:00 AM EST completed [facility] Vaccine Series Complete: YESThis Data wa s Submitted to [facility] Via [facility]. COVID-19 VACCINE Moderna 07/06/2020 12:00:00 AM EST completed [facility] Vaccine Series Complete: NOThis Data was Submitted to [facility] [employer]. INFLUENZA VACCINE QUADRIVALENT (65 YR UP)/MF59 C.1/PF 03/18/2020 12:00:00 AM EDT completed [facility] Medications Medication Brand Name Start Date Product Form Dose Route Admi nistrative Instructions Pharmacy Instructions Status Indications Reaction Description Data Source(s) 240 mcg/0.7 mL 03/18/2021 12:00:00 AM EDT syringe 0 INJECT INTO LEFT ARM DIRECTED INJECT INTO LEFT ARM DIRECTED SOLD: 03/18/2021 [facility] 1.479-0.188- 0.225 gram 02/18/2021 12:00:00 AM EDT tablet 24 USE DIRECTED USE DIRECTED SOLD: 02/20/2021 [facility] Sutab Sutab 02/17/2021 12:00:00 AM EDT active MED[facility] ([facility]) Fluticasone Propionate 50 MCG/ACT Fluticasone Propionate 50 MCG/ACT 12/09/2020 12:00:00 AM EDT 2.0 {sprays_in_each_nostril} act messi Fluticasone Propionate 50 MCG/ACT eCW1 ([facility]) Fluticasone Propionate 50 MCG/ACT Fluticasone Propionate 50 MCG/ACT 12/09/2020 12:00:00 AM EDT 2.0 {sprays_in_each_nostril} act messi Fluticasone Propionate 50 MCG/ACT eCW1 ([facility]) Omeprazole 40 MG Delayed Release Oral Capsule Omeprazole 40 MG 2020 12:00:00 AM EST active Omeprazo le 40 MG eCW1 ([facility]) Trulicity 3 MG/0.5ML Trulicity 3 MG/0.5ML 2020 12:00:00 AM EST active Trulicity 3 MG/0.5ML eCW1 ([facility]) Omeprazole 40 MG Delayed Release Oral Capsule Omeprazole 40 MG 2020 12:00:00 AM EST active Omeprazo le 40 MG eCW1 ([facility]) Trulicity 3 MG/0.5ML Trulicity 3 MG/0.5ML 2020 12:00:00 AM EST active Trulicity 3 MG/0.5ML eCW1 ([facility]) Omeprazole 40 MG Delayed Release Oral Capsule Omeprazole 40 MG 2020 12:00:00 AM EST active Omeprazo le 40 MG eCW1 ([facility]) Trulicity 3 MG/0.5ML Trulicity 3 MG/0.5ML 2020 12:00:00 AM EST active Trulicity 3 MG/0.5ML eCW1 ([facility]) Trulicity 3 MG/0.5ML Trulicity 3 MG/0.5ML 2020 12:00:00 AM EST active Trulicity 3 MG/0.5ML eCW1 ([facility]) Omeprazole 40 MG Delayed Release Oral Capsule Omeprazole 40 MG 2020 12:00:00 AM EST active Omeprazo le 40 MG eCW1 ([facility]) glimepiride 2 MG Oral Tablet Glimepiride 04/26/2020 12:00:00 AM EST ORAL active [facility] ([facility]) Insurance Providers Payer name Policy type / Coverage type Policy ID Covered republican ID Covered republican's relationship to vu Policy Vu [facility] Information [facility] [id number] Self [id number] [facility] [id number] Self [facility] [id number] Linda [id number] MEDICARE [id number] Linda [id number] MEDICARE [id number] SP [id number] [facility] [id number] SP [id number] ANSI-Not a Secondary Insurance [id number] ANSI-Commercial [id number] ANSI-Medicare Part B [id number] ANSI-Commercial [id number] ANSI-Not a Secondary Insurance [id number] ANSI-Medicare Part B [id number] [facility] [id number] SP [id number] R PI PI MEDICARE PI PI ANSI-Commercial [id number] ANSI-Medicare Part B [id number] ANSI-Not a Secondary Insurance [id number] ANSI-Medicare Part B [id number] ANSI-Commercial [id number] ANSI-Not a Secondary Insurance [id number] ANSI-Medicare Part B [id number] ANSI-Not a Secondary Insurance [id number] ANSI-Commercial [id number] ANSI-Commercial [id number] ANSI-Medicare Part B [id number] ANSI-Not a Secondary Insurance [id number] [facility] Part B [id number] Self [id number] Medicare (Part B) Medicare Primary [id number] Self [id number] [employer] [facility] [employer]po Medigap Part B [id number] Self [id number] [place] Med[employer]ap Part B [id number] Self [id number] [employer] Med[employer]ap Part B [id number] Self [id number] Medicare (Part B) Medicare Primary [id number] Self [id number] ANSI-Medicare Part B [id number] ANSI-Commercial [id number] ANSI-Not a Secondary Insurance [id number] ANSI-Not a Secondary Insurance [id number] ANSI-Medicare Part B [id number] ANSI-Commercial [id number] ANSI-Not a Secondary Insurance [id number] ANSI-Commercial [id number] ANSI-Medicare Part B [id number] ANSI-Not a Secondary Insurance [id number] ANSI-Medicare Part B [id number] ANSI-Commercial [id number] ANSI-Medicare Part B [id number] ANSI-Not a Secondary Insurance [id number] ANSI-Commercial [id number] ANSI-Not a Secondary Insurance [id number] ANSI-Medicare Part B [id number] ANSI-Commercial [id number] ANSI-Commercial [id number] ANSI-Not a Secondary Insurance [id number] ANSI-Medicare Part B [id number] [facility] Part B [id number] Self [id number] Medicare (Part B) Medicare Primary [id number] Self [id number] ANSI-Commercial [id number] ANSI-Not a Secondary Insurance [id number] ANSI-Medicare Part B [id number] MEDICARE [id number] A ANSI-Medicare Part B [id number] ANSI-Not a Secondary Insurance [id number] ANSI-Commercial [id number] ANSI-Not a Secondary Insurance [id number] ANSI-Medicare Part B [id number] ANSI-Commercial [id number] ANSI-Not a Secondary Insurance [id number] ANSI-Medicare Part B [id number] ANSI-Commercial [id number] ANSI-Not a Secondary Insurance [id number] ANSI-Medicare Part B [id number] ANSI-Commercial [id number] MEDICARE C [id number] S [id number] A ANSI-Commercial [id number] ANSI-Not a Secondary Insurance [id number] ANSI-Medicare Part B [id number] [facility] [id number] SP [id number] POMCO [id number] SP [id number] POMCO [id number] SP [id number] POM[employer] PPO O [id number] S [id number] [employer] Commercial [id number] Self [id number] [employer] PHCS Ppo Medigap Part B [id number] Self [id number] [employer] Commercial [id number] Self [id number] POMCO [id number] SP [id number] Ghi Medigap Part B [id number] Self POMCO [id number] SP [id number] [employer]OMCO PPO O [id number] S [id number] [employer] Commercial [id number] Self POMCO [id number] SP [id number] [employer] [id number] SP [id number] MEDICARE [id number] SP [id number] [facility] [id number] SP [id number] SELF PAY ONLY [id number] SP [id number] MEDICARE C [id number] S [id number] [facility] O [id number] S [id number] Problems, Conditions, and Diagnoses No Information Surgeries/Procedures Procedure Description Date Indications Data Source(s) OFFICE OUTPATIENT NEW 45 MINUTES 02/17/2021 12:00:00 A M EDT [facility] ([facility] [place]Note 2[place] Chronic Care MGMT 20 Mins Clinical Staff Time Per Calendar M [facility] 02/10/2021 12:00:00 AM EDT [facility] ([facility]) Chronic Care MGMT 20 Mins Clinical Staff Time Per Calendar M [facility] 01/21/2021 12:00:00 [facility] [facility]) MYOCRD IMAGE PET PERFUS MULTPL STUDY REST/STRESS 01/04 12:00:00 AM EDT MEDENT ([facility]) CV STRS TST XERS&/OR RX CONT ECG I&R ONLY 01/04/2021 1 2:00:00 AM EDT MEDENT ([facility]) Chronic Care MGMT 20 Mins Clinical Staff Time Per Calendar [facility] 12/21/2020 12:00:00 AM EDT MEDENT ([facility]) Chronic Care MGMT 20 Mins Clinical Staff Time Per Calendar [facility] 11/19/2020 12:00:00 AM EDT MEDENT ([facility]) XTRNL ECG < 48 HR RECORDING 10/29/2020 12:00:00 AM EDT MEDENT ([facility]) XTRNL ECG CONTINUOUS RHYTHM PHYS REVIEW&INTERPJ 2020 12:00:00 AM EDT MEDENT ([facility]) ECG ROUTINE ECG W/LEAST 12 LDS W/I&R 10/27/2020 12:00: 00 AM EDT MEDENT ([facility]) OFFICE OUTPATIENT VISIT 25 MINUTES 10/27/2020 12:00:00 AM EDT MEDENT ([facility]) Chronic Care MGMT 20 Mins Clinical Staff Time Per Calendar [facility] 10/20/2020 12:00:00 AM EDT MEDENT ([facility]) Chronic Care MGMT 20 Mins Clinical Staff Time Per Calendar [facility] 09/24/2020 12:00:00 AM EDT MEDENT ([facility]) Chronic Care MGMT 20 Mins Clinical Staff Time Per Calendar [facility] 08/23/2020 12:00:00 AM EDT MEDENT ([facility]) Chronic Care Management Services Ea Addl 20 Min 2020 12:00:00 AM EST MEDENT ([facility]) Chronic Care MGMT 20 Mins Clinical Staff Time Per Calendar [facility] 07/22/2020 12:00:00 AM EST MEDENT ([facility]) Chronic Care MGMT 20 Mins Clinical Staff Time Per Calendar [facility] 06/15/2020 12:00:00 AM EST MEDENT ([facility]) ECG ROUTINE ECG W/LEAST 12 LDS W/I&R 04/27/2020 12:00: 00 AM EST MEDENT ([facility]) Results ID Date Data Source [id number] 10/22/2020 08:58:00 AM EDT [facility] ([facility] Name Value Range Interpretation Code Description Data Tanisha rce(s) Supporting Document(s) Thyroid Stimulating Hormone 2.680 ME DENT ([facility]) Free T4 0.99 MEDENT ([facility]) ID Date Data Source [id number] 10/22/2020 08:58:00 AM EDT [facility] ([facility] Name Value Range Interpretation Code Description Data Tanisha rce(s) Supporting Document(s) Triglycerides 150 MEDENT ([facility]) Cholesterol 76 MEDENT ([facility]) HDL 26 MEDENT ([facility] Cholesterol in LDL [Mass/volume] in Serum or Plasma by calculation 20 MEDENT ([facility]) Chol/HDL Ratio 2.923 MEDENT ([facility]) ID Date Data Source [id number] 10/22/2020 08:58:00 AM EDT [facility] Name Value Range Interpretation Code Description Data Tanisha rce(s) Supporting Document(s) Natriuretic peptide.B prohormone N-Terminal [Mass/volu me] in Serum or Plasma 110 MEDENT ([facility]) ID Date Data Source [id number] 10/22/2020 08:58:00 AM EDT [facility] Name Value Range Interpretation Code Description Data Tanisha rce(s) Supporting Document(s) Albumin [Mass/volume] in Serum or Plasma 3.3 MEDENT ([facility]) Carbon dioxide, total [Moles/volume] in Serum or Plasma 26 MEDENT ([facility]) Alanine aminotransferase [Enzymatic activity/volume] in Serum or Pl asma 20 MEDENT ([facility]) Calcium [Mass/volume] in Serum or Plasma 9.2 MEDENT ([facility]) Alkaline phosphatase [Enzymatic activity/volume] in Serum or Plasma 9 9 MEDENT ([facility]) Chloride [Moles/volume] in Serum or Plasma 109 MEDENT ([facility]) Potassium [Moles/volume] in Serum or Plasma 4.3 MEDENT ([facility]) Aspartate aminotransferase [Enzymatic activity/volume] in Serum or Plasma 10 MEDENT ([facility]) Protein [Mass/volume] in Serum or Plasma 6.8 MEDENT ([facility]) Sodium 142 MEDENT ([facility]) Urea nitrogen [Mass/volume] in Serum or Plasma 27 MEDENT ([facility]) Glucose 171 70-100 MEDENT ([facility]) Creatinine For GFR 1.25 MED[facility] ([facility]) ID Date Data Source [id number] 10/22/2020 08:58:00 AM EDT [facility] Name Value Range Interpretation Code Description Data Tanisha rce(s) Supporting Document(s) Hemoglobin A1c/Hemoglobin.total in Blood 8.6 MEDENT ([facility]) ID Date Data Source [id number] 05/04/2020 12:00:00 AM EST [facility] Name Value Range Interpretation Code Description Data Tanisha rce(s) Supporting Document(s) 2019-nCoV RNA XXX FARIDA+probe-Imp [facility] This lab was ordered by [facility] and reported by [email or web address]. ID Date Data Source [id number] 04/26/2020 06:07:00 AM EST MED[facility] ([facility]) Name Value Range Interpretation Code Description Data Tanisha rce(s) Supporting Document(s) Glucose, Fasting 180 mg/dL 70-100 MEDENT ([facility]i [facility]) Creatinine For GFR 1.35 mg/dL 0.70-1.30 MEDENT ([facility]) Glomerular Filtration Rate 56.1 MED ENT ([facility]) <content>Units are mL/min/1.73 m2</content>
<content></content>
<content>Chronic Kidney Disease Staging per NKF:</content>
<content></content>
<content>Stage I & II GFR >=60 Normal to Mildly Decreased</content>
<content>Stage III GFR 30- 59 Moderately Decreased</content>
<content>Stage IV GFR 15-29 Severely Decreased</content>
<content>Stage V GFR <15 Very Little GFR Left</content>
<content>ESRD GFR <15 on [employer] DR[employer]</content>
<content></content> Blood Urea Nitrogen 30 mg/dL 7-18 MEDENT ([facility]) Sodium Level 139 meq/L 136-145 MEDENT ([facility]) Potassium Serum 4.2 meq/L 3.5-5.1 MEDENT ([facility]) Chloride Level 108 meq/L 98-107 MEDENT ([facility]) Carbon Dioxide Level 26 meq/L 21-32 MEDENT ([facility]) Anion Gap 5 meq/L 8-16 [facility] Calcium Level 8.8 mg/dL 8.8-10.2 MEDENT ([facility]) ID Date Data Source [id number] 04/26/2020 06:07:00 AM EST MED[facility] ([facility]) Name Value Range Interpretation Code Description Data Tanisha rce(s) Supporting Document(s) Magnesium [Mass/volume] in Serum or Plasma 1.9 mg/dL 1.8-2.4 MED[facility] ([facility]) ID Date Data Source [id number] 02/09/2020 10:39:00 AM EDT [facility] Name Value Range Interpretation Code Description Data Tanisha rce(s) Supporting Document(s) Albumin [Mass/volume] in Serum or Plasma 3.0 MED[facility] ([facility]) Alanine aminotransferase [Enzymatic activity/volume] in Serum or Pl asma 20 MEDENT ([facility]) Calcium [Mass/volume] in Serum or Plasma 8.9 MED[facility] ([facility]) Carbon dioxide, total [Moles/volume] in Serum or Plasma 28 MED[facility] ([facility]) Alkaline phosphatase [Enzymatic activity/volume] in Serum or Plasma 1 02 MED[facility] ([facility]) Chloride [Moles/volume] in Serum or Plasma 109 MEDENT ([facility]) Potassium [Moles/volume] in Serum or Plasma 4.1 MED[facility] ([facility]) Sodium 140 MED[facility] ([facility]) Protein [Mass/volume] in Serum or Plasma 6.8 MEDENT ([facility]) Aspartate aminotransferase [Enzymatic activity/volume] in Serum or Plasma 11 MEDENT ([facility]) Creatinine For GFR 1.23 MED[facility] ([facility]) Urea nitrogen [Mass/volume] in Serum or Plasma 25 MED[facility] ([facility]) Glucose 180 70-100 [facility] ID Date Data Source [id number] 02/09/2020 10:39:00 AM EDT [facility] Name Value Range Interpretation Code Description Data Tanisha rce(s) Supporting Document(s) Hemoglobin A1c/Hemoglobin.total in Blood 7.8 [facility] ([facility]) ID Date Data Source [id number] 02/09/2020 10:39:00 AM EDT [facility] Name Value Range Interpretation Code Description Data Tanisha rce(s) Supporting Document(s) Red Blood Count 4.22 4.30-6.10 MED[facility] ([facility]) White Blood Count 10.2 4.0-10.0 MED[facility] ([facility]) Hemoglobin 12.3 MED[facility] ([facility]) Platelets 132 150-450 MED[facility] ([facility]) Hematocrit 38.4 MED[facility] ([facility]) Procedure Social History Code Duration Value Status Description Data Source(s ) Smoking 12/09/2020 12:00:00 AM EDT Former Smoker completed Former Smoker eCW1 ([facility]) Smoking 12/09/2020 12:00:00 AM EDT Former Smoker completed Former Smoker eCW1 ([facility]) Smoking 10/27/2020 12:00:00 AM EDT Patient is a former smoker completed Patient is a former smoker MEDENT ([facility]) Smoking 2020 12:00:00 AM EST Former Smoker completed Former Smoker eCW1 ([facility]) Smoking 2020 12:00:00 AM EST Former Smoker completed Former Smoker eCW1 ([facility]) Smoking 2020 12:00:00 AM EST Former Smoker completed Former Smoker eCW1 ([facility]) Smoking 2020 12:00:00 AM EST Former Smoker completed Former Smoker eCW1 ([facility]) Vital Signs ID Date Data Source UNK Name Value Range Interpretation Code Description Data Source(s) Body height 69 [in_i] 69 [in_i] [facility] ([facility]) 5'9" Body weight 348.00 [lb_av] 348.00 [lb_av] MEDEN T ([facility]) Systolic blood pressure 137 mm[Hg] 137 mm[Hg] M EDENT ([facility]) Diastolic blood pressure 73 mm[Hg] 73 mm[Hg] MEDENT ([facility]) Heart rate 86 /min 86 /min [facility]) Body mass index (BMI) [Ratio] 51.4 kg/m2 51.4 k g/m2 MEDENT ([facility]) Body weight 157.853 kg 157.853 kg MEDENT ([facility]) Body temperature 97.0 [degF] 97.0 [degF] MEDENT ([facility]) Body weight 353.8 [lb_av] 353.8 [lb_av] eCW1 ([facility]) Body height 69 [in_i] 69 [in_i] eCW1 ([facility]) Body mass index (BMI) [Ratio] 52.24 kg/m2 52.24 kg/m2 eCW1 ([facility]) Heart rate 95 /min 95 /min eCW1 ([facility]) Respiratory rate 18 /min 18 /min eCW1 ([facility]) Body temperature 97.6 [degF] 97.6 [degF] eCW1 ( [facility]) Systolic blood pressure 128 mm[Hg] 128 mm[Hg] e CW1 ([facility]) Diastolic blood pressure 62 mm[Hg] 62 mm[Hg] eCW1 ([facility]) Respiratory rate 16 /min 16 /min MEDENT ( [facility]) Systolic blood pressure 128 mm[Hg] 128 mm[Hg] M EDENT ([facility]) sitting, large cuff Diastolic blood pressure 76 mm[Hg] 76 mm[Hg] MEDENT ([facility]) sitting, large cuff Body weight 345.00 [lb_av] 345.00 [lb_av] MEDEN T ([facility]) Body height 69 [in_i] 69 [in_i] MEDENT ([facility]) 5'9" Body mass index (BMI) [Ratio] 50.9 kg/m2 50.9 k g/m2 MEDENT ([facility]) Systolic blood pressure 126 mm[Hg] 126 mm[Hg] M EDENT ([facility]) sitting Diastolic blood pressure 76 mm[Hg] 76 mm[Hg] MEDENT ([facility]) sitting Heart rate 80 /min 80 /min MED[facility] ([facility]) Regular Body weight 355.6 [lb_av] 355.6 [lb_av] eCW1 ([facility]) Body height 69 [in_i] 69 [in_i] eCW1 ([facility]) Body mass index (BMI) [Ratio] 52.51 kg/m2 52.51 kg/m2 eCW1 ([facility]) Heart rate 92 /min 92 /min eCW1 ([facility]) Respiratory rate 20 /min 20 /min eCW1 ([facility]) Body temperature 97.9 [degF] 97.9 [degF] eCW1 ( [facility]) Systolic blood pressure 130 mm[Hg] 130 mm[Hg] e CW1 ([facility]) Diastolic blood pressure 72 mm[Hg] 72 mm[Hg] eCW1 ([facility]) Systolic blood pressure 126 mm[Hg] 126 mm[Hg] M EDENT ([facility]) sitting Diastolic blood pressure 74 mm[Hg] 74 mm[Hg] MEDENT ([facility]) sitting Body weight 350.00 [lb_av] 350.00 [lb_av] MEDEN T ([facility]) Body height 69 [in_i] 69 [in_i] MEDENT ([facility]) 5'9" Body mass index (BMI) [Ratio] 51.7 kg/m2 51.7 k g/m2 MEDENT ([facility]) Heart rate 84 /min 84 /min MED[facility] ([facility]) Regular Respiratory rate 16 /min 16 /min MEDENT ( [facility]) Systolic blood pressure 128 mm[Hg] 128 mm[Hg] M EDENT ([facility]) sitting, large cuff Diastolic blood pressure 74 mm[Hg] 74 mm[Hg] MEDENT ([facility]) sitting, large cuff Patient Treatment Plan of Care Planned Activity Planned Date Details Description Data Source (s) Fluticasone Propionate 50 MCG/ACT 12/09/2020 12:00:00 AM EDT eCW1 ([facility]) Fluticasone Propionate 50 MCG/ACT 12/09/2020 12:00:00 AM EDT eCW1 ([facility]) Omeprazole 40 MG Delayed Release Oral Capsule 2020 12:00:00 A M EST eCW1 ([facility]) Trulicity 3 MG/0.5ML 2020 12:00:00 AM EST eCW1 ([facility]) Omeprazole 40 MG Delayed Release Oral Capsule 2020 12:00:00 A M EST eCW1 ([facility]) Trulicity 3 MG/0.5ML 2020 12:00:00 AM EST eCW1 ([facility]) Omeprazole 40 MG Delayed Release Oral Capsule 2020 12:00:00 A M EST eCW1 ([facility]) Trulicity 3 MG/0.5ML 2020 12:00:00 AM EST eCW1 ([facility]) Omeprazole 40 MG Delayed Release Oral Capsule 2020 12:00:00 A M EST eCW1 ([facility]) Trulicity 3 MG/0.5ML 2020 12:00:00 AM EST eCW1 ([facility])
[2021-04-08] MEDS ORDERED: LIDOCAINE 2% 100MG/5ML SDV (FOR ANES.) As Ordered ONE (07:34)
[2021-04-08] MEDS ORDERED: propofoL 200 MG/20 ML VIAL As Ordered ONE ×2 (07:34→08:23)
[2021-04-08] MEDS ORDERED: fentaNYL 100 MCG/2 ML INJECTION (J3010) As Ordered ONE (07:34)
[2021-04-08] MEDS ORDERED: PHENYLephrine 500MCG 5ML (100MCG/ML) SYRINGE As Ordered ONE (08:17)
--- NOTE | 2021-04-08 08:21 | ROOR ---
Patient Name: Sumit Winston Procedure Date: 04/08/2021 7:59 AM Date of : 1950 Age: 70 Room: [facility] Gender: Male Note Status: Finalized Procedure: Upper Endoscopy + Biopsies Indications: Heartburn, Exclusion of Wilde's esophagus, Exclusion of acute duodenal ulcer, Follow-up of acute duodenal ulcer Providers: Kaushik Franz MD Referring MD: Jadiel García MD Requesting Provider: Medicines: Monitored Anesthesia Care Complications: No immediate complications. Procedure: Pre-Anesthesia Assessment: - The heart rate, respiratory rate, oxygen saturations, blood pressure, adequacy of pulmonary ventilation, and response to care were monitored throughout the procedure. The Endoscope was introduced through the mouth, and advanced to the second part of duodenum. The upper GI endoscopy was accomplished without difficulty. The patient tolerated the procedure well. Findings: The Z-line was variable and was found 35 cm from the incisors. Multiple biopsies were obtained with cold forceps for evaluation to rule out Wilde's Esophagus randomly at the gastroesophageal junction. A small hiatal hernia was present. A few medium sessile polyps with no bleeding and no stigmata of recent bleeding were found in the prepyloric region of the stomach. Biopsies were taken with a cold forceps for histology. Biopsies were taken with a cold forceps in the gastric antrum for Helicobacter pylori testing. The exam of the duodenum was otherwise normal. Impression: - Z-line variable, 35 cm from the incisors. - Small hiatal hernia. - A few gastric polyps. Biopsied. - Multiple biopsies were obtained at the gastroesophageal junction. - Biopsies were taken with a cold forceps for Helicobacter pylori testing. - The examination was otherwise normal. Recommendation: - Patient has a contact number available for emergencies. The signs and symptoms of potential delayed complications were discussed with the patient. Return to normal activities tomorrow. Written discharge instructions were provided to the patient. - Resume previous diet. - Discharge patient to home. - Follow an antireflux regimen. - Continue present medications. - Await pathology results. - Telephone GI clinic for pathology results in 1 week. - Return to referring physician. - The findings and recommendations were discussed with the patient. Procedure Code(s): --- Professional --- 98336, Esophagogastroduodenoscopy, flexible, transoral; with biopsy, single or multiple Diagnosis Code(s): --- Professional --- K22.8, Other specified diseases of esophagus K44.9, Diaphragmatic hernia without obstruction or gangrene K31.7, Polyp of stomach and duodenum R12, Heartburn K26.3, Acute duodenal ulcer without hemorrhage or perforation CPT copyright 2019 [employer]. All rights reserved. The codes documented in this report are preliminary and upon senior principal architect review may be revised to meet current compliance requirements. Kaushik Franz MD Kaushik Franz MD 04/08/2021 8:20:30 AM Electronically signed by Kaushik Franz MD Number of Addenda: 0 Note Initiated On: 04/08/2021 7:59 AM Estimated Blood Loss: Estimated blood loss: none.
--- NOTE | 2021-04-08 08:45 | ROOR ---
Patient Name: Sumit Winston Procedure Date: 04/08/2021 8:00 AM Date of : 1950 Age: 70 Room: [facility] Gender: Male Note Status: Finalized Procedure: Total Colonoscopy to Cecum + Cold Snare Polypectomy + Hemoclips Indications: High risk colon cancer surveillance: Personal history of colon cancer Providers: Kaushik Franz MD Referring MD: Jadiel García MD Requesting Provider: Medicines: Monitored Anesthesia Care Complications: No immediate complications. Procedure: Pre-Anesthesia Assessment: - The heart rate, respiratory rate, oxygen saturations, blood pressure, adequacy of pulmonary ventilation, and response to care were monitored throughout the procedure. The Colonoscope was introduced through the anus and advanced to the cecum, identified by appendiceal orifice and ileocecal valve. The colonoscopy was performed without difficulty. The patient tolerated the procedure well. The quality of the bowel preparation was excellent. Findings: The perianal and digital rectal examinations were normal. Non-bleeding internal hemorrhoids were found during retroflexion. The hemorrhoids were small and Grade I (internal hemorrhoids that do not prolapse). There was evidence of a prior end-to-side colo-colonic anastomosis at 25 cm proximal to the anus. This was patent and was characterized by healthy appearing mucosa. A small polyp was found in the rectum. The polyp was sessile. The polyp was removed with a cold snare. Resection and retrieval were complete. To prevent bleeding after the polypectomy, one hemostatic clip was successfully placed. There was no bleeding at the end of the procedure. Scattered small-mouthed diverticula were found in the recto-sigmoid colon, sigmoid colon and descending colon. The exam was otherwise without abnormality on direct and retroflexion views. Impression: - Non-bleeding internal hemorrhoids. - Patent end-to-side colo-colonic anastomosis, characterized by healthy appearing mucosa. - One small polyp in the rectum, removed with a cold snare. Resected and retrieved. Clip was placed. - Diverticulosis in the recto-sigmoid colon, in the sigmoid colon and in the descending colon. - The examination was otherwise normal on direct and retroflexion views. - The exam was otherwise normal to the cecum. Recommendation: - Patient has a contact number available for emergencies. The signs and symptoms of potential delayed complications were discussed with the patient. Return to normal activities tomorrow. Written discharge instructions were provided to the patient. - High fiber diet. - Discharge patient to home. - Continue present medications. - Await pathology results. - Telephone GI clinic for pathology results in 1 week. - Repeat colonoscopy in 5 years for surveillance based on pathology results. - Return to referring physician. - The findings and recommendations were discussed with the patient. Procedure Code(s): --- Professional --- 44160, Colonoscopy, flexible; with removal of tumor(s), polyp(s), or other lesion(s) by snare technique Diagnosis Code(s): --- Professional --- Z85.038, Personal history of other malignant neoplasm of large intestine K64.0, First degree hemorrhoids Z98.0, Intestinal bypass and anastomosis status K62.1, Rectal polyp K57.30, Diverticulosis of large intestine without perforation or abscess without bleeding CPT copyright 2019 [employer]. All rights reserved. The codes documented in this report are preliminary and upon cardiology technologist review may be revised to meet current compliance requirements. Kaushik Franz MD Kaushik Franz MD 04/08/2021 8:44:53 AM Electronically signed by Kaushik Franz MD Number of Addenda: 0 Note Initiated On: 04/08/2021 8:00 AM Estimated Blood Loss: Estimated blood loss: none.
[2021-04-08 09:05] VITALS: BP 131/72
== END 2021-04-08 09:21 | disposition home or self-care (01) ==
LOC: M OPP 06:48
PROVIDERS: ATTEND Internal Medicine Gastroenterology
DX: Z12.11 Encounter for screening for malignant neoplasm of colon (principal); Z85.038 Personal history of other malignant neoplasm of large intestine; K57.30 Diverticulosis of large intestine without perforation or abscess without bleeding; K62.1 Rectal polyp; K64.0 First degree hemorrhoids; Z98.0 Intestinal bypass and anastomosis status; K22.89 Other specified disease of esophagus; K31.7 Polyp of stomach and duodenum; K26.3 Acute duodenal ulcer without hemorrhage or perforation; K44.9 Diaphragmatic hernia without obstruction or gangrene; R12 Heartburn; K63.5 Polyp of colon; Z79.82 Long term (current) use of aspirin; Z79.84 Long term (current) use of oral hypoglycemic drugs; Z79.899 Other long term (current) drug therapy; Z95.5 Presence of coronary angioplasty implant and graft
CPT/HCPCS: 43239; 45385; 88305; J2370; J3010

== ENCOUNTER → 2021-05-09 | Outpatient (CLI) | payer MEDICARE, OTHER ==
[~2021-05-09] MED LIST changes: -NS 1,000 ML IV ONE
[2021-05-09 07:51] LABS: ALBUMIN 3.1 GM/DL (3.2-5.2); BILIRUBIN,TOTAL 0.6 MG/DL (0.2-1.0); C REACTIVE PROTEIN QUANTITATIV 1.03 MG/DL (0.00-0.30); CALCIUM LEVEL 8.8 MG/DL (8.8-10.2); CHOLESTEROL RISK RATIO 3.72 (<5); CREATININE FOR GFR 1.36 MG/DL (0.70-1.30); FREE T4 1.14 NG/DL (0.76-1.46); GLOMERULAR FILTRATION RATE 55.5 (>49); POTASSIUM SERUM 4.3 MEQ/L (3.5-5.1); THYROID STIMULATING HORMONE 1.87 uIU/ML (0.358-3.740); TOTAL PROTEIN 6.6 GM/DL (6.4-8.2)
== END ==
LOC: M LAB 06:28
PROVIDERS: ATTEND Family Medicine
DX: E78.5 Hyperlipidemia, unspecified (principal); K76.0 Fatty (change of) liver, not elsewhere classified; E11.9 Type 2 diabetes mellitus without complications; I50.32 Chronic diastolic (congestive) heart failure; Z12.5 Encounter for screening for malignant neoplasm of prostate
CPT/HCPCS: 36415; 80053; 80061; 82105; 82172; 82550; 83010; 83036; 83880; 83883; 84439; 84443; 86140; G0103

== ENCOUNTER → 2021-06-13 | Outpatient (CLI) | payer MEDICARE, OTHER ==
[2021-06-13 13:15] LABS: BLOOD UREA NITROGEN 29 MG/DL (7-18); CREATININE FOR GFR 1.24 MG/DL (0.70-1.30); GLOMERULAR FILTRATION RATE > 60.0 (>49)
== END ==
LOC: M LAB 11:40
PROVIDERS: ATTEND Surgery
DX: Z01.818 Encounter for other preprocedural examination (principal)

== ENCOUNTER → 2021-06-29 | Outpatient (CLI) | payer MEDICARE, OTHER ==
[~2021-06-29] MED LIST changes: +GASTROGRAFIN SOLUTION 30ML (Q9963) As Ordered ONE; +ISOVUE-370 76% 100ML VIAL As Ordered ONE
== END ==
LOC: M RAD 07:17
PROVIDERS: ATTEND Surgery
DX: K43.2 Incisional hernia without obstruction or gangrene (principal)
CPT/HCPCS: 74177; Q9963; Q9967

== ENCOUNTER → 2021-09-12 | Outpatient (CLI) | payer MEDICARE, OTHER ==
[~2021-09-12] MED LIST changes: -GASTROGRAFIN SOLUTION 30ML (Q9963) As Ordered ONE; -ISOVUE-370 76% 100ML VIAL As Ordered ONE
[2021-09-12 07:10] LABS: BASO # 0.1 10^3/uL (0.0-0.2); BASO % 0.9 % (0.0-1.0); EOS # 0.3 10^3/uL (0.0-0.5); EOS % 3.9 % (0.0-3.0); HEMATOCRIT 38.7 % (42.0-52.0); HEMOGLOBIN 12.5 g/dl (13.5-17.5); LYMPH # 1.6 10^3/uL (1.5-5.0); LYMPH % 19.1 % (24.0-44.0); MEAN CORPUSCULAR HEMOGLOBIN 29.6 pg (27.0-33.0); MEAN CORPUSCULAR HGB CONC 32.3 g/dl (32.0-36.5); MEAN CORPUSCULAR VOLUME 91.7 fl (80.0-96.0); MONO # 0.7 10^3/uL (0.0-0.8); MONO % 8.1 % (2.0-8.0); NEUTROPHILS # 5.7 10^3/uL (1.5-8.5); NEUTROPHILS % 67.5 % (36.0-66.0); PLATELET COUNT, AUTOMATED 93 10^3/uL (150-450); RED BLOOD COUNT 4.22 10^6/uL (4.30-6.10); WHITE BLOOD COUNT 8.5 10^3/uL (4.0-10.0)
[2021-09-12 07:26] LABS: HEMOGLOBIN A1c 8.1 %
[2021-09-12 07:34] LABS: ALBUMIN 3.2 GM/DL (3.2-5.2); BILIRUBIN,TOTAL 0.7 MG/DL (0.2-1.0); CALCIUM LEVEL 8.9 MG/DL (8.8-10.2); CREATININE FOR GFR 1.29 MG/DL (0.70-1.30); GLOMERULAR FILTRATION RATE 58.8 (>49); MAGNESIUM LEVEL 1.5 MG/DL (1.8-2.4); POTASSIUM SERUM 4.2 MEQ/L (3.5-5.1); TOTAL PROTEIN 6.6 GM/DL (6.4-8.2)
[2021-09-12 07:53] LABS: TOTAL 25(OH) VITAMIN D 72.2 NG/ML (30.0-100.0)
[2021-09-12 07:54] LABS: PTH INTACT 73.3 PG/ML (18.5-88.0)
== END ==
LOC: M LAB 06:29
PROVIDERS: ATTEND Family Medicine
DX: D50.9 Iron deficiency anemia, unspecified (principal); I10 Essential (primary) hypertension; E11.9 Type 2 diabetes mellitus without complications; E55.9 Vitamin D deficiency, unspecified; Z79.899 Other long term (current) drug therapy

== ENCOUNTER → 2021-11-23 | Outpatient (REF) | payer MEDICARE, OTHER | LOC: M SFHCPLAZ 12:53 | PROVIDERS: ATTEND Physician Assistant | DX: R30.0 Dysuria (principal) ==

== ENCOUNTER → 2021-11-24 | Outpatient (CLI) | payer MEDICARE, OTHER ==
[2021-11-24 14:04] LABS: BASO % 0.4 % (0.0-1.0); EOS # 0.1 10^3/uL (0.0-0.5); EOS % 1.3 % (0.0-3.0); HEMATOCRIT 36.2 % (42.0-52.0); HEMOGLOBIN 11.5 g/dl (13.5-17.5); LYMPH % 12.3 % (24.0-44.0); MEAN CORPUSCULAR HEMOGLOBIN 29.7 pg (27.0-33.0); MEAN CORPUSCULAR HGB CONC 31.8 g/dl (32.0-36.5); MEAN CORPUSCULAR VOLUME 93.5 fl (80.0-96.0); MONO # 0.6 10^3/uL (0.0-0.8); MONO % 7.3 % (2.0-8.0); NEUTROPHILS # 6.3 10^3/uL (1.5-8.5); NEUTROPHILS % 78.3 % (36.0-66.0); PLATELET COUNT, AUTOMATED 135 10^3/uL (150-450); RED BLOOD COUNT 3.87 10^6/uL (4.30-6.10)
== END ==
LOC: M PLALAB 10:32
PROVIDERS: ATTEND Physician Assistant
DX: R30.0 Dysuria (principal)
CPT/HCPCS: 36415; 85025; G0103

== ENCOUNTER → 2022-01-16 | Outpatient (CLI) | payer MEDICARE, OTHER ==
[2022-01-16 07:15] LABS: BASO # 0.1 10^3/uL (0.0-0.2); BASO % 0.8 % (0.0-1.0); EOS # 0.2 10^3/uL (0.0-0.5); HEMATOCRIT 38.4 % (42.0-52.0); HEMOGLOBIN 12.1 g/dl (13.5-17.5); LYMPH # 2.2 10^3/uL (1.5-5.0); LYMPH % 23.7 % (24.0-44.0); MEAN CORPUSCULAR HEMOGLOBIN 29.3 pg (27.0-33.0); MEAN CORPUSCULAR HGB CONC 31.5 g/dl (32.0-36.5); MONO # 0.5 10^3/uL (0.0-0.8); MONO % 5.5 % (2.0-8.0); NEUTROPHILS # 6.2 10^3/uL (1.5-8.5); NEUTROPHILS % 67.7 % (36.0-66.0); PLATELET COUNT, AUTOMATED 111 10^3/uL (150-450); RED BLOOD COUNT 4.13 10^6/uL (4.30-6.10); WHITE BLOOD COUNT 9.2 10^3/uL (4.0-10.0)
[2022-01-16 08:06] LABS: ALBUMIN 3.2 GM/DL (3.2-5.2); ALT/SGPT 12 U/L (12-78); BILIRUBIN,TOTAL 0.5 MG/DL (0.2-1.0); BLOOD UREA NITROGEN 23 MG/DL (7-18); CALCIUM LEVEL 8.9 MG/DL (8.8-10.2); CARBON DIOXIDE LEVEL 25 MEQ/L (21-32); CHLORIDE LEVEL 110 MEQ/L (98-107); CHOLESTEROL LEVEL 87 MG/DL (<200); CHOLESTEROL RISK RATIO 3.346 (<5); CREATININE FOR GFR 1.26 MG/DL (0.70-1.30); GLOMERULAR FILTRATION RATE > 60.0 (>49); GLUCOSE, FASTING 230 MG/DL (70-100); HDL CHOLESTEROL 26 MG/DL (>40); LDL CHOLESTEROL 19 MG/DL (<100); NON-HDL-C 61 MG/DL; POTASSIUM SERUM 4.8 MEQ/L (3.5-5.1); SODIUM LEVEL 138 MEQ/L (136-145); TOTAL PROTEIN 6.6 GM/DL (6.4-8.2); TRIGLYCERIDES LEVEL 211 MG/DL (<150)
[2022-01-16 09:15] LABS: HEMOGLOBIN A1c 7.1 %
== END ==
LOC: M LAB 06:35
PROVIDERS: ATTEND Family Medicine
DX: E78.5 Hyperlipidemia, unspecified (principal); Z12.5 Encounter for screening for malignant neoplasm of prostate; E03.9 Hypothyroidism, unspecified; I80.01 Phlebitis and thrombophlebitis of superficial vessels of right lower extremity; I50.32 Chronic diastolic (congestive) heart failure; Z79.899 Other long term (current) drug therapy
CPT/HCPCS: 36415; 80053; 80061; 83036; 84439; 84443; 85025; G0103

== ENCOUNTER → 2022-03-24 | Outpatient (CLI) | payer MEDICARE, OTHER ==
[2022-03-24 07:10] LABS: BASO # 0.1 10^3/uL (0.0-0.2); EOS # 0.2 10^3/uL (0.0-0.5); EOS % 2.6 % (0.0-3.0); HEMATOCRIT 38.1 % (42.0-52.0); LYMPH # 2.1 10^3/uL (1.5-5.0); LYMPH % 24.6 % (24.0-44.0); MEAN CORPUSCULAR HEMOGLOBIN 29.2 pg (27.0-33.0); MEAN CORPUSCULAR HGB CONC 31.5 g/dl (32.0-36.5); MEAN CORPUSCULAR VOLUME 92.7 fl (80.0-96.0); MONO # 0.6 10^3/uL (0.0-0.8); MONO % 7.1 % (2.0-8.0); NEUTROPHILS # 5.4 10^3/uL (1.5-8.5); NEUTROPHILS % 64.3 % (36.0-66.0); PLATELET COUNT, AUTOMATED 119 10^3/uL (150-450); RED BLOOD COUNT 4.11 10^6/uL (4.30-6.10); WHITE BLOOD COUNT 8.4 10^3/uL (4.0-10.0)
[2022-03-24 07:22] LABS: HEMOGLOBIN A1c 7.3 %
[2022-03-24 07:47] LABS: ALBUMIN 3.3 GM/DL (3.2-5.2); BILIRUBIN,TOTAL 0.6 MG/DL (0.2-1.0); CALCIUM LEVEL 9.3 MG/DL (8.8-10.2); CHOLESTEROL RISK RATIO 3.083 (<5); CREATININE FOR GFR 1.36 MG/DL (0.70-1.30); FREE T4 1.07 NG/DL (0.76-1.46); GLOMERULAR FILTRATION RATE 55.3 (>49); POTASSIUM SERUM 4.3 MEQ/L (3.5-5.1); THYROID STIMULATING HORMONE 1.08 uIU/ML (0.358-3.740); TOTAL PROTEIN 6.8 GM/DL (6.4-8.2)
== END ==
LOC: M LAB 06:05
PROVIDERS: ATTEND Family Medicine
DX: I50.32 Chronic diastolic (congestive) heart failure (principal); I80.01 Phlebitis and thrombophlebitis of superficial vessels of right lower extremity; E03.9 Hypothyroidism, unspecified; Z12.5 Encounter for screening for malignant neoplasm of prostate; E78.5 Hyperlipidemia, unspecified; Z79.890 Hormone replacement therapy; Z79.82 Long term (current) use of aspirin; Z79.84 Long term (current) use of oral hypoglycemic drugs
CPT/HCPCS: 36415; 80053; 80061; 83036; 83880; 84439; 84443; 85025; G0103

== ENCOUNTER → 2022-08-18 | Outpatient (CLI) | payer MEDICARE, OTHER ==
[2022-08-18 07:09] LABS: BASO # 0.1 10^3/uL (0.0-0.2); BASO % 0.6 % (0.0-1.0); EOS # 0.2 10^3/uL (0.0-0.5); EOS % 2.1 % (0.0-3.0); HEMATOCRIT 38.4 % (42.0-52.0); HEMOGLOBIN 12.3 g/dl (13.5-17.5); LYMPH # 2.1 10^3/uL (1.5-5.0); LYMPH % 21.5 % (24.0-44.0); MEAN CORPUSCULAR HEMOGLOBIN 29.5 pg (27.0-33.0); MEAN CORPUSCULAR VOLUME 92.1 fl (80.0-96.0); MONO # 0.7 10^3/uL (0.0-0.8); MONO % 6.9 % (2.0-8.0); NEUTROPHILS # 6.8 10^3/uL (1.5-8.5); NEUTROPHILS % 68.4 % (36.0-66.0); PLATELET COUNT, AUTOMATED 114 10^3/uL (150-450); RED BLOOD COUNT 4.17 10^6/uL (4.30-6.10); WHITE BLOOD COUNT 9.9 10^3/uL (4.0-10.0)
[2022-08-18 07:26] LABS: INR 1.06
[2022-08-18 07:27] LABS: PARTIAL THROMBOPLASTIN TIME 32.3 SECONDS (24.8-34.2)
[2022-08-18 07:40] LABS: ALBUMIN 3.3 G/DL (3.2-5.2); ALKALINE PHOSPHATASE 102 U/L (46-116); ALT/SGPT 17 U/L (7.0-40); AST/SGOT 15 U/L (<34); BILIRUBIN,TOTAL 0.6 MG/DL (0.3-1.2); BLOOD UREA NITROGEN 22 MG/DL (9-23); CALCIUM LEVEL 8.5 MG/DL (8.3-10.6); CARBON DIOXIDE LEVEL 26 MMOL/L (20-31); CHLORIDE LEVEL 110 MMOL/L (98-107); CREATININE FOR GFR 1.07 MG/DL (0.70-1.30); GLOMERULAR FILTRATION RATE > 60.0 (>42); GLUCOSE, FASTING 129 MG/DL (74-106); MAGNESIUM LEVEL 1.4 MG/DL (1.8-2.4); POTASSIUM SERUM 4.4 MMOL/L (3.5-5.1); SODIUM LEVEL 143 MMOL/L (136-145); TOTAL PROTEIN 6.3 G/DL (5.7-8.2)
[2022-08-18 07:41] LABS: PTH INTACT 77.6 PG/ML (18.5-88.0)
[2022-08-18 07:42] LABS: FERRITIN 45.7 NG/ML (10.5-307.3); TOTAL 25(OH) VITAMIN D 95.5 NG/ML (20.0-100.0); VITAMIN B12 LEVEL 749 PG/ML (211-911)
[2022-08-18 13:16] LABS: CREATININE, URINE 113.7 MG/DL
[2022-08-18 13:17] LABS: MAU/CREAT RATIO 9.6 MCG/MG (0.0-30.0)
== END ==
LOC: M LAB 06:17
PROVIDERS: ATTEND Family Medicine
DX: E53.8 Deficiency of other specified B group vitamins (principal); D50.9 Iron deficiency anemia, unspecified; I50.32 Chronic diastolic (congestive) heart failure; E55.9 Vitamin D deficiency, unspecified; E11.9 Type 2 diabetes mellitus without complications; N18.31 Chronic kidney disease, stage 3a; K76.0 Fatty (change of) liver, not elsewhere classified

== ENCOUNTER → 2022-10-03 | Outpatient (REF) | payer MEDICARE, OTHER | LOC: M SFHCPLAZ 10:16 | PROVIDERS: ATTEND Family Medicine | DX: L82.1 Other seborrheic keratosis (principal); L08.9 Local infection of the skin and subcutaneous tissue, unspecified; L85.9 Epidermal thickening, unspecified; L57.0 Actinic keratosis ==

== ENCOUNTER 2022-12-01 07:40 | Day surgery (SDC) | payer MEDICARE, OTHER ==
[~2022-12-01] VITALS: Ht 172.7 cm; Wt 146.1 kg
[~2022-12-01 07:40] MED LIST changes: +CelecoXIB 400 MG CAP PO ONE; +SEMA2PEN SC
[2022-12-01] MEDS ORDERED: LR 1,000 ML IV SCH (08:05)
[2022-12-01] MEDS ORDERED: BOTOX THERAPEUTIC 100 UNIT VIAL As Ordered ONE (09:41)
[2022-12-01] MEDS ORDERED: ACETAMINOPHEN 1000MG 100ML IV BAG As Ordered ONE (09:42)
[2022-12-01] MEDS ORDERED: propofoL 200 MG/20 ML VIAL As Ordered ONE ×2 (09:42→10:33)
[2022-12-01] MEDS ORDERED: LIDOCAINE 2% 100MG/5ML SDV (FOR ANES.) As Ordered ONE (09:42)
[2022-12-01] MEDS ORDERED: MIDAZOLAM INJ 2MG/2ML VIAL As Ordered ONE (09:43)
[2022-12-01 11:20] VITALS: BP 101/58; TEMP 97.3; O2SAT 96
== END 2022-12-01 11:20 | disposition home or self-care (01) ==
LOC: M OPP 07:40
PROVIDERS: ATTEND Surgery
DX: K43.2 Incisional hernia without obstruction or gangrene (principal); E66.01 Morbid (severe) obesity due to excess calories; I11.9 Hypertensive heart disease without heart failure; E78.00 Pure hypercholesterolemia, unspecified; E11.9 Type 2 diabetes mellitus without complications; I50.9 Heart failure, unspecified; J44.9 Chronic obstructive pulmonary disease, unspecified; Z85.038 Personal history of other malignant neoplasm of large intestine; Z87.891 Personal history of nicotine dependence; M62.838 Other muscle spasm
CPT/HCPCS: 64646; J0131; J0585; J0665; J2250

== ENCOUNTER 2023-01-12 06:10 | Inpatient (IN) | payer MEDICARE, OTHER ==
[~2023-01-12] VITALS: Ht 172.7 cm; Wt 146.1 kg
[~2023-01-12 06:10] MED LIST changes: +DICL100G10 TOP; -DICL1GEL3 TOP; +HEPARIN SOD (PORCINE) 5000UNITS/ML 1ML VIAL/SYRINGE SQ ONE; +UNRESOLVED CLARIFICATION ENTRY XX SCH
[2023-01-12] MEDS ORDERED: METF-723 PO (06:48)
[2023-01-12] MEDS ORDERED: OMEP40CA5 PO (06:48)
[2023-01-12] MEDS ORDERED: SYNT137T7 PO (06:48)
[2023-01-12] MEDS ORDERED: ALLO300T2 PO (06:48)
[2023-01-12] MEDS ORDERED: GLIM4TAB5 PO (06:48)
[2023-01-12] MEDS ORDERED: LR 1,000 ML IV SCH ×2 (06:50→17:05)
[2023-01-12] MEDS ORDERED: ceFAZolin SOD 2 GM in IV 1 EA IV ONE (07:10)
[2023-01-12] MEDS ORDERED: ceFAZolin SOD 1 GM in D5W MINI-BAG PLUS 50 ML IV ONE (07:10)
[2023-01-12] MEDS ORDERED: LIDOCAINE 1% SDV 30ML VIAL As Ordered ONE (07:15)
[2023-01-12] MEDS ORDERED: HYDROmorphone HCL 2MG/ML 1ML VIAL As Ordered ONE (08:14)
[2023-01-12] MEDS ORDERED: ePHEDrine SULFATE 25 MG/5 ML(5MG/ML) SYRINGE As Ordered ONE (08:14)
[2023-01-12] MEDS ORDERED: SUGAMMADEX SODIUM 500 MG/5 ML VIAL (BRIDION) As Ordered ONE (08:14)
[2023-01-12] MEDS ORDERED: propofoL 200 MG/20 ML VIAL As Ordered ONE ×2 (08:14→12:24)
[2023-01-12] MEDS ORDERED: LIDOCAINE 2% 100MG/5ML SDV (FOR ANES.) As Ordered ONE (08:14)
[2023-01-12] MEDS ORDERED: fentaNYL 250 MCG/5 ML INJECTION As Ordered ONE (08:14)
[2023-01-12] MEDS ORDERED: ROCURONIUM BROMIDE 50MG/5ML VIAL As Ordered ONE ×5 (08:14→15:33)
[2023-01-12] MEDS ORDERED: ONDANSETRON 4MG 2ML VIAL As Ordered ONE (08:14)
[2023-01-12] MEDS ORDERED: MIDAZOLAM INJ 2MG/2ML VIAL As Ordered ONE (08:14)
[2023-01-12] MEDS ORDERED: ACETAMINOPHEN 1000MG 100ML IV BAG As Ordered ONE ×2 (08:29→14:44)
[2023-01-12] MEDS ORDERED: PHENYLephrine 500MCG 5ML (100MCG/ML) SYRINGE As Ordered ONE (09:38)
[2023-01-12] MEDS ORDERED: propofoL 500 MG/50 ML VIAL As Ordered ONE ×5 (09:58→15:59)
[2023-01-12] MEDS ORDERED: ceFAZolin 1GM VIAL As Ordered ONE ×2 (11:34→15:30)
[2023-01-12] MEDS ORDERED: ceFAZolin 2 GM/D5W 50 ML IV BAG As Ordered ONE ×2 (11:34→15:29)
[2023-01-12] MEDS ORDERED: PHENYLEPHRINE 10MG/ML 1ML VIAL As Ordered ONE (11:44)
[2023-01-12] MEDS ORDERED: ONDANSETRON 4MG 2ML VIAL IV PRN ×2 (17:05→17:20)
[2023-01-12] MEDS ORDERED: oxyCODONE 5MG TAB PO PRN (17:05)
[2023-01-12] MEDS ORDERED: HYDROMORPHONE HCL 0.5 MG/ 0.5 ML SYRINGE IV PRN (17:05)
[2023-01-12] MEDS ORDERED: fentaNYL 100 MCG/2 ML INJECTION IV PRN (17:05)
[2023-01-12] MEDS ORDERED: NORCO, ANEXSIA 5/325MG TABLET (HYDROcodone/ACETAMINOPHEN) PO PRN ×2 (17:20)
[2023-01-12] MEDS ORDERED: ACETAMINOPHEN TAB 650MG DOSE (2X325MG) PO PRN (17:20)
[2023-01-12] MEDS ORDERED: MORPHINE 4 MG/ML 1ML VIAL IV PRN (17:20)
[2023-01-12] MEDS: KETOROLAC 30 MG/ML 1ML VIAL IV SCH ×2 (18:00→23:50)
[2023-01-12] MEDS: LR 1,000 ML IV SCH (18:00)
[2023-01-12 18:30] VITALS: BP 137/87; TEMP 97.9; O2SAT 96
[2023-01-12 18:52] VITALS: BP 134/85; TEMP 98.4; O2SAT 94
[2023-01-12 21:13] VITALS: BP 110/63; TEMP 97.9; O2SAT 93
[2023-01-12] MEDS ORDERED: HOME MED LIST COMPLETE! XX SCH (21:40)
[2023-01-12] MEDS: DOCUSATE SODIUM 100MG CAPSULE PO SCH (22:11)
[2023-01-12] MEDS: ROSUVASTATIN 10 MG TAB (CRESTOR) PO SCH (22:11)
[2023-01-12 22:16] VITALS: BP 113/48; TEMP 98.8; O2SAT 95
[2023-01-12 23:07] VITALS: BP 112/63; TEMP 98.8; O2SAT 95
[2023-01-13 01:56] VITALS: BP 111/63; TEMP 98.6; O2SAT 95
[2023-01-13] MEDS: LR 1,000 ML IV SCH (04:02)
[2023-01-13] MEDS: KETOROLAC 30 MG/ML 1ML VIAL IV SCH ×3 (05:15→17:06)
[2023-01-13 05:24] VITALS: BP 125/65; TEMP 98.4; O2SAT 93
[2023-01-13 07:21] LABS: BASO % 0.2 % (0.0-1.0); EOS % 0.1 % (0.0-3.0); HEMATOCRIT 32.1 % (42.0-52.0); HEMOGLOBIN 10.5 g/dl (13.5-17.5); LYMPH # 1.6 10^3/uL (1.5-5.0); LYMPH % 14.8 % (24.0-44.0); MEAN CORPUSCULAR HEMOGLOBIN 29.9 pg (27.0-33.0); MEAN CORPUSCULAR HGB CONC 32.7 g/dl (32.0-36.5); MEAN CORPUSCULAR VOLUME 91.5 fl (80.0-96.0); MONO # 1.2 10^3/uL (0.0-0.8); MONO % 10.6 % (2.0-8.0); NEUTROPHILS % 73.9 % (36.0-66.0); RED BLOOD COUNT 3.51 10^6/uL (4.30-6.10); WHITE BLOOD COUNT 10.8 10^3/uL (4.0-10.0)
[2023-01-13 07:51] LABS: CREATININE FOR GFR 1.34 MG/DL (0.70-1.30); GLOMERULAR FILTRATION RATE 56.1 (>42); POTASSIUM SERUM 4.5 MMOL/L (3.5-5.1)
[2023-01-13] MEDS: ASPIRIN 81MG ENTERIC TABLET PO SCH (08:01)
[2023-01-13] MEDS: FUROSEMIDE 40 MG TAB PO SCH (08:01)
[2023-01-13] MEDS: FERROUS SULFATE 325MG TAB PO SCH (08:02)
[2023-01-13] MEDS: DOCUSATE SODIUM 100MG CAPSULE PO SCH ×2 (08:02→22:06)
[2023-01-13] MEDS: SPIRONOLACTONE 25 MG TAB PO SCH (08:02)
[2023-01-13] MEDS: CYANOCOBALAMIN 500 MCG TAB PO SCH (08:02)
[2023-01-13 08:07] LABS: PLATELET COUNT, AUTOMATED 88 10^3/uL (150-450)
[2023-01-13] MEDS ORDERED: ENOXAPARIN 40MG/0.4ML SYRINGE (J1650 PER 10MG) SC SCH (09:00)
[2023-01-13 14:00] VITALS: BP 105/62; TEMP 98.4; O2SAT 93
[2023-01-13] MEDS ORDERED: GLUCOSE 4GM CHEW TABLET PO PRN (20:15)
[2023-01-13] MEDS ORDERED: DEXTROSE 50% 50ML SYRINGE IV PRN (20:15)
[2023-01-13] MEDS ORDERED: GLUCAGON INJ 1MG VIAL SC PRN (20:15)
[2023-01-13 20:35] VITALS: BP 114/69; TEMP 97.9; O2SAT 93
[2023-01-13] MEDS ORDERED: INSULIN LISPRO (NovoLOG) PER UNIT SC SCH (21:00)
[2023-01-13 22:06] VITALS: BP 114/69
[2023-01-13] MEDS: ROSUVASTATIN 10 MG TAB (CRESTOR) PO SCH (22:06)
[2023-01-14] MEDS: KETOROLAC 30 MG/ML 1ML VIAL IV SCH ×2 (00:01→05:22)
[2023-01-14 06:49] VITALS: BP 116/68; TEMP 97.9; O2SAT 95
[2023-01-14] MEDS ORDERED: INSULIN LISPRO (NovoLOG) PER UNIT SC SCH (07:30)
[2023-01-14] MEDS: CYANOCOBALAMIN 500 MCG TAB PO SCH (08:32)
[2023-01-14] MEDS: ASPIRIN 81MG ENTERIC TABLET PO SCH (08:32)
[2023-01-14] MEDS: FERROUS SULFATE 325MG TAB PO SCH (08:32)
[2023-01-14] MEDS: FUROSEMIDE 40 MG TAB PO SCH (08:32)
[2023-01-14] MEDS: DOCUSATE SODIUM 100MG CAPSULE PO SCH (08:32)
[2023-01-14] MEDS: SPIRONOLACTONE 25 MG TAB PO SCH (08:32)
== END 2023-01-14 11:50 | disposition home or self-care (01) | DRG 354 ==
LOC: M OR 06:10 → M MS5PR 18:15
PROVIDERS: ADMIT Surgery; ATTEND Surgery
PROC: 0KNL4ZZ Release Left Abdomen Muscle, Percutaneous Endoscopic Approach (ICD-10-PCS; 2023-01-12)
PROC: 0KNK4ZZ Release Right Abdomen Muscle, Percutaneous Endoscopic Approach (ICD-10-PCS; 2023-01-12)
PROC: 8E0W4CZ Robotic Assisted Procedure of Trunk Region, Percutaneous Endoscopic Approach (ICD-10-PCS; 2023-01-12)
PROC: 0WQF4ZZ Repair Abdominal Wall, Percutaneous Endoscopic Approach (ICD-10-PCS; principal; 2023-01-12 07:30)
DX: K43.2 Incisional hernia without obstruction or gangrene (principal); Z68.41 Body mass index [BMI] 40.0-44.9, adult; E66.01 Morbid (severe) obesity due to excess calories; I11.0 Hypertensive heart disease with heart failure; J44.9 Chronic obstructive pulmonary disease, unspecified; I50.9 Heart failure, unspecified; Z95.2 Presence of prosthetic heart valve; E78.00 Pure hypercholesterolemia, unspecified; E11.9 Type 2 diabetes mellitus without complications; Z85.038 Personal history of other malignant neoplasm of large intestine; Z87.891 Personal history of nicotine dependence; Z79.899 Other long term (current) drug therapy; Z79.82 Long term (current) use of aspirin

== ENCOUNTER → 2023-02-02 | Outpatient (CLI) | payer MEDICARE, OTHER ==
[~2023-02-02] MED LIST changes: +ALLO300T2 PO; -CelecoXIB 400 MG CAP PO ONE; +GLIM4TAB5 PO; -HEPARIN SOD (PORCINE) 5000UNITS/ML 1ML VIAL/SYRINGE SQ ONE; +METF-723 PO; +OMEP40CA5 PO; +SYNT137T7 PO; -UNRESOLVED CLARIFICATION ENTRY XX SCH
[2023-02-02 07:20] LABS: BASO # 0.1 10^3/uL (0.0-0.2); EOS # 0.2 10^3/uL (0.0-0.5); EOS % 2.6 % (0.0-3.0); HEMATOCRIT 34.3 % (42.0-52.0); HEMOGLOBIN 10.8 g/dl (13.5-17.5); LYMPH # 1.6 10^3/uL (1.5-5.0); LYMPH % 17.2 % (24.0-44.0); MEAN CORPUSCULAR HEMOGLOBIN 29.4 pg (27.0-33.0); MEAN CORPUSCULAR HGB CONC 31.5 g/dl (32.0-36.5); MEAN CORPUSCULAR VOLUME 93.5 fl (80.0-96.0); MONO # 0.7 10^3/uL (0.0-0.8); MONO % 7.3 % (2.0-8.0); NEUTROPHILS # 6.7 10^3/uL (1.5-8.5); NEUTROPHILS % 71.5 % (36.0-66.0); PLATELET COUNT, AUTOMATED 178 10^3/uL (150-450); RED BLOOD COUNT 3.67 10^6/uL (4.30-6.10); WHITE BLOOD COUNT 9.3 10^3/uL (4.0-10.0)
[2023-02-02 08:22] LABS: ALBUMIN 3.1 G/DL (3.2-5.2); ALKALINE PHOSPHATASE 103 U/L (46-116); ALT/SGPT 15 U/L (7.0-40); AST/SGOT 9 U/L (<34); BILIRUBIN,TOTAL 0.6 MG/DL (0.3-1.2); BLOOD UREA NITROGEN 29 MG/DL (9-23); CALCIUM LEVEL 8.9 MG/DL (8.3-10.6); CARBON DIOXIDE LEVEL 24 MMOL/L (20-31); CHLORIDE LEVEL 111 MMOL/L (98-107); CHOLESTEROL LEVEL 83 MG/DL (<200); FERRITIN 95.9 NG/ML (10.5-307.3); FREE T4 1.06 NG/DL (0.89-1.76); GLOMERULAR FILTRATION RATE > 60.0 (>42); GLUCOSE, FASTING 83 MG/DL (74-106); POTASSIUM SERUM 4.5 MMOL/L (3.5-5.1); SODIUM LEVEL 141 MMOL/L (136-145); THYROID STIMULATING HORMONE 1.117 uIU/ML (0.55-4.78); TOTAL PROTEIN 6.5 G/DL (5.7-8.2); TRIGLYCERIDES LEVEL 113 MG/DL (<150)
[2023-02-02 09:08] LABS: HEMOGLOBIN A1c 6.2 % (4.0-6.0)
[2023-02-02 12:13] LABS: CHOLESTEROL RISK RATIO 3.37 (<5); HDL CHOLESTEROL 24.6 MG/DL (>40); LDL CHOLESTEROL 35.8 MG/DL (<100); NON-HDL-C 58.4 MG/DL
[2023-02-06 18:09] LABS: ERYTHROPOIETIN 32.5 mIU/mL (2.6-18.5); SOLUBLE TRANSFERRIN RECEPTOR 24.7 nmol/L (12.2-27.3)
== END ==
LOC: M LAB 06:44
PROVIDERS: ATTEND Family Medicine
DX: D50.9 Iron deficiency anemia, unspecified (principal); E78.5 Hyperlipidemia, unspecified; Z79.899 Other long term (current) drug therapy

== ENCOUNTER → 2023-02-05 | Outpatient (REF) | payer MEDICARE, OTHER | LOC: M SFHCPLAZ 12:11 | PROVIDERS: ATTEND Family Medicine | DX: D50.9 Iron deficiency anemia, unspecified (principal); E11.9 Type 2 diabetes mellitus without complications; I50.32 Chronic diastolic (congestive) heart failure; M10.9 Gout, unspecified; Z12.5 Encounter for screening for malignant neoplasm of prostate ==

== ENCOUNTER → 2023-02-26 | Outpatient (REF) | payer MEDICARE, OTHER | LOC: M SFHCPLAZ 12:39 | PROVIDERS: ATTEND Nurse Practitioner Adult Health | DX: R35.0 Frequency of micturition (principal) ==

== ENCOUNTER → 2023-06-05 | Outpatient (CLI) | payer MEDICARE, OTHER | LOC: M EKG 11:53 | PROVIDERS: ATTEND Physician Assistant | DX: I45.3 Trifascicular block (principal) ==

== ENCOUNTER → 2023-06-18 | Outpatient (CLI) | payer MEDICARE, OTHER ==
[2023-06-18 13:15] LABS: BASO # 0.1 10^3/uL (0.0-0.2); BASO % 0.6 % (0.0-1.0); EOS # 0.2 10^3/uL (0.0-0.5); EOS % 2.9 % (0.0-3.0); HEMATOCRIT 36.2 % (42.0-52.0); HEMOGLOBIN 11.5 g/dl (13.5-17.5); LYMPH # 2.1 10^3/uL (1.5-5.0); LYMPH % 25.5 % (24.0-44.0); MEAN CORPUSCULAR HEMOGLOBIN 28.9 pg (27.0-33.0); MEAN CORPUSCULAR HGB CONC 31.8 g/dl (32.0-36.5); MONO # 0.5 10^3/uL (0.0-0.8); MONO % 6.6 % (2.0-8.0); NEUTROPHILS # 5.2 10^3/uL (1.5-8.5); PLATELET COUNT, AUTOMATED 103 10^3/uL (150-450); RED BLOOD COUNT 3.98 10^6/uL (4.30-6.10); WHITE BLOOD COUNT 8.1 10^3/uL (4.0-10.0)
[2023-06-18 13:38] LABS: URIC ACID 4.3 MG/DL (3.7-9.2)
[2023-06-18 13:39] LABS: HEMOGLOBIN A1c 6.2 % (4.0-6.0)
[2023-06-18 13:41] LABS: ALBUMIN 3.1 G/DL (3.2-5.2); ALKALINE PHOSPHATASE 87 U/L (46-116); ALT/SGPT 10 U/L (7.0-40); AST/SGOT < 8 U/L (<34); BILIRUBIN,TOTAL 0.4 MG/DL (0.3-1.2); BLOOD UREA NITROGEN 28 MG/DL (9-23); CARBON DIOXIDE LEVEL 26 MMOL/L (20-31); CHLORIDE LEVEL 108 MMOL/L (98-107); CREATININE FOR GFR 1.36 MG/DL (0.70-1.30); GLOMERULAR FILTRATION RATE 55.2 (>42); GLUCOSE, FASTING 154 MG/DL (74-106); MAGNESIUM LEVEL 1.5 MG/DL (1.8-2.4); POTASSIUM SERUM 4.6 MMOL/L (3.5-5.1); PSA SCREENING 0.99 NG/ML (< 4.00); SODIUM LEVEL 140 MMOL/L (136-145); TOTAL PROTEIN 6.6 G/DL (5.7-8.2)
[2023-06-18 13:45] LABS: FERRITIN 47.9 NG/ML (10.5-307.3)
== END ==
LOC: M LAB 12:16
PROVIDERS: ATTEND Family Medicine
DX: D50.9 Iron deficiency anemia, unspecified (principal); E11.9 Type 2 diabetes mellitus without complications; I50.32 Chronic diastolic (congestive) heart failure; M10.9 Gout, unspecified; Z12.5 Encounter for screening for malignant neoplasm of prostate
CPT/HCPCS: 36415; 80053; 82728; 83036; 83735; 83880; 84550; 85025; G0103

== ENCOUNTER → 2023-07-02 | Outpatient (CLI) | payer MEDICARE, OTHER ==
[2023-07-02 07:07] LABS: CREATININE FOR GFR 1.21 MG/DL (0.70-1.30); GLOMERULAR FILTRATION RATE > 60.0 (>42)
== END ==
LOC: M LAB 06:00
PROVIDERS: ATTEND Internal Medicine
DX: R94.39 Abnormal result of other cardiovascular function study (principal)

== ENCOUNTER → 2023-07-13 | Outpatient (REF) | payer MEDICARE, OTHER | LOC: M SFHCPLAZ 16:19 | PROVIDERS: ATTEND Family Medicine | DX: I50.32 Chronic diastolic (congestive) heart failure (principal); E11.9 Type 2 diabetes mellitus without complications; K74.00 Hepatic fibrosis, unspecified ==

== ENCOUNTER → 2024-01-11 | Outpatient (CLI) | payer MEDICARE, OTHER ==
[2024-01-11 07:09] LABS: ALBUMIN 3.3 G/DL (3.2-5.2); ALKALINE PHOSPHATASE 93 U/L (46-116); ALT/SGPT < 9 U/L (7.0-40); AST/SGOT 8 U/L (<34); BILIRUBIN,TOTAL 0.6 MG/DL (0.3-1.2); BLOOD UREA NITROGEN 31 MG/DL (9-23); CALCIUM LEVEL 9.2 MG/DL (8.3-10.6); CARBON DIOXIDE LEVEL 26 MMOL/L (20-31); CHLORIDE LEVEL 111 MMOL/L (98-107); CHOLESTEROL LEVEL 91 MG/DL (<200); CHOLESTEROL RISK RATIO 3.68 (<5); CREATININE FOR GFR 1.52 MG/DL (0.70-1.30); GLOMERULAR FILTRATION RATE 48.4 (>42); GLUCOSE, FASTING 171 MG/DL (74-106); HDL CHOLESTEROL 24.7 MG/DL (>40); LDL CHOLESTEROL 26.5 MG/DL (<100); NON-HDL-C 66.3 MG/DL; POTASSIUM SERUM 5.1 MMOL/L (3.5-5.1); SODIUM LEVEL 142 MMOL/L (136-145); TOTAL PROTEIN 6.7 G/DL (5.7-8.2); TRIGLYCERIDES LEVEL 199 MG/DL (<150)
[2024-01-11 07:13] LABS: HEMOGLOBIN A1c 7.5 % (4.0-6.0)
== END ==
LOC: M LAB 06:03
PROVIDERS: ATTEND Family Medicine
DX: E11.9 Type 2 diabetes mellitus without complications (principal); I50.32 Chronic diastolic (congestive) heart failure; K74.00 Hepatic fibrosis, unspecified

== ENCOUNTER → 2024-01-17 | Outpatient (REF) | payer MEDICARE, OTHER | LOC: M SFHCPLAZ 17:49 | PROVIDERS: ATTEND Family Medicine | DX: I50.32 Chronic diastolic (congestive) heart failure (principal); E11.9 Type 2 diabetes mellitus without complications; D50.9 Iron deficiency anemia, unspecified; E03.9 Hypothyroidism, unspecified; Z12.5 Encounter for screening for malignant neoplasm of prostate ==

== ENCOUNTER → 2024-03-03 | Outpatient (CLI) | payer MEDICARE, OTHER | LOC: M RAD 08:26 | PROVIDERS: ATTEND Family Medicine | DX: K74.00 Hepatic fibrosis, unspecified (principal) ==

== ENCOUNTER → 2024-06-04 | Outpatient (CLI) | payer MEDICARE, OTHER ==
[2024-06-04 07:23] LABS: INR 1.09; PROTHROMBIN TIME 14.4 SECONDS (12.5-14.5)
[2024-06-04 07:29] LABS: PSA SCREENING 0.49 NG/ML (< 4.00)
[2024-06-04 07:33] LABS: THYROID STIMULATING HORMONE 0.535 uIU/ML (0.55-4.78)
[2024-06-04 07:34] LABS: FREE T4 1.2 NG/DL (0.89-1.76)
[2024-06-04 07:35] LABS: ALBUMIN 3.4 G/DL (3.2-5.2); BILIRUBIN,TOTAL 0.7 MG/DL (0.3-1.2); CALCIUM LEVEL 9.5 MG/DL (8.3-10.6); CREATININE FOR GFR 2.3 MG/DL (0.70-1.30); MAGNESIUM LEVEL 1.7 MG/DL (1.8-2.4); TOTAL PROTEIN 6.6 G/DL (5.7-8.2)
[2024-06-04 07:40] LABS: CREATININE, URINE 239.8 MG/DL; MAU/CREAT RATIO 2.5 MCG/MG (0.0-30.0)
[2024-06-04 07:41] LABS: BASO # 0.1 10^3/uL (0.0-0.2); BASO % 0.6 % (0.0-1.0); EOS # 0.2 10^3/uL (0.0-0.5); EOS % 1.8 % (0.0-3.0); HEMOGLOBIN 12.1 g/dl (13.5-17.5); HEMOGLOBIN A1c 7.6 % (4.0-6.0); LYMPH # 2.4 10^3/uL (1.5-5.0); LYMPH % 27.6 % (24.0-44.0); MEAN CORPUSCULAR HEMOGLOBIN 30.6 pg (27.0-33.0); MEAN CORPUSCULAR HGB CONC 31.8 g/dl (32.0-36.5); MEAN CORPUSCULAR VOLUME 96.2 fl (80.0-96.0); MONO # 0.7 10^3/uL (0.0-0.8); MONO % 7.9 % (2.0-8.0); NEUTROPHILS # 5.5 10^3/uL (1.5-8.5); NEUTROPHILS % 61.9 % (36.0-66.0); RED BLOOD COUNT 3.95 10^6/uL (4.30-6.10); WHITE BLOOD COUNT 8.9 10^3/uL (4.0-10.0)
[2024-06-04 08:03] LABS: PLATELET COUNT, AUTOMATED 88 10^3/uL (150-450)
== END ==
LOC: M LAB 06:11
PROVIDERS: ATTEND Family Medicine
DX: I50.32 Chronic diastolic (congestive) heart failure (principal); E11.9 Type 2 diabetes mellitus without complications; D50.9 Iron deficiency anemia, unspecified; K74.00 Hepatic fibrosis, unspecified; Z12.5 Encounter for screening for malignant neoplasm of prostate; E03.9 Hypothyroidism, unspecified
CPT/HCPCS: 36415; 80053; 82043; 82728; 83036; 83525; 83735; 83880; 84439; 84443; 85025; 85049; 85055; 85610; 85730; G0103

== ENCOUNTER → 2024-07-25 | Outpatient (CLI) | payer MEDICARE, OTHER | LOC: M RAD 06:52 | PROVIDERS: ATTEND Family Medicine | DX: N18.31 Chronic kidney disease, stage 3a (principal); N39.0 Urinary tract infection, site not specified; I70.1 Atherosclerosis of renal artery ==

== ENCOUNTER → 2024-08-28 | Outpatient (CLI) | payer MEDICARE, OTHER | LOC: M CARPUL 13:01 | PROVIDERS: ATTEND Physician Assistant | DX: I35.1 Nonrheumatic aortic (valve) insufficiency (principal); I50.30 Unspecified diastolic (congestive) heart failure; I51.7 Cardiomegaly; I36.1 Nonrheumatic tricuspid (valve) insufficiency ==

== ENCOUNTER → 2024-10-14 | Outpatient (CLI) | payer MEDICARE, OTHER ==
[~2024-10-14] MED LIST changes: +AMMO12CR4 TOP; -AMMO12CR7 TOP; +METF-1113 PO; -METF-723 PO
[2024-10-14 14:07] LABS: BASO # 0.1 10^3/uL (0.0-0.2); BASO % 0.9 % (0.0-1.0); EOS # 0.2 10^3/uL (0.0-0.5); HEMATOCRIT 37.6 % (42.0-52.0); HEMOGLOBIN 12.2 g/dl (13.5-17.5); LYMPH # 2.9 10^3/uL (1.5-5.0); LYMPH % 30.4 % (24.0-44.0); MEAN CORPUSCULAR HEMOGLOBIN 30.1 pg (27.0-33.0); MEAN CORPUSCULAR HGB CONC 32.4 g/dl (32.0-36.5); MEAN CORPUSCULAR VOLUME 92.8 fl (80.0-96.0); MONO # 0.8 10^3/uL (0.0-0.8); MONO % 8.4 % (2.0-8.0); NEUTROPHILS # 5.5 10^3/uL (1.5-8.5); PLATELET COUNT, AUTOMATED 136 10^3/uL (150-450); RED BLOOD COUNT 4.05 10^6/uL (4.30-6.10); WHITE BLOOD COUNT 9.4 10^3/uL (4.0-10.0)
[2024-10-14 14:19] LABS: INR 0.98; PARTIAL THROMBOPLASTIN TIME 28.1 SECONDS (24.8-34.2); PROTHROMBIN TIME 13.3 SECONDS (12.5-14.5)
[2024-10-14 14:35] LABS: HEMOGLOBIN A1c 7.5 % (4.0-6.0)
[2024-10-14 14:36] LABS: CREATININE, URINE 52.1 MG/DL; MALB URINE SIEMENS < 3.0 MG/L
[2024-10-14 14:37] LABS: PSA SCREENING 0.49 NG/ML (< 4.00)
[2024-10-14 14:41] LABS: ALBUMIN 3.6 G/DL (3.2-5.2); ALKALINE PHOSPHATASE 114 U/L (40-129); ALT/SGPT < 9 U/L (7.0-40); AST/SGOT 11 U/L (<34); BILIRUBIN,TOTAL 0.5 MG/DL (0.3-1.2); BLOOD UREA NITROGEN 33 MG/DL (9-23); CALCIUM LEVEL 9.2 MG/DL (8.3-10.6); CARBON DIOXIDE LEVEL 24 MMOL/L (20-31); CHLORIDE LEVEL 108 MMOL/L (98-107); CHOLESTEROL LEVEL 88 MG/DL (<200); CHOLESTEROL RISK RATIO 3.43 (<5); CREATININE FOR GFR 1.57 MG/DL (0.70-1.30); FERRITIN 68.4 NG/ML (10.5-307.3); GLOMERULAR FILTRATION RATE 46.5 (>42); GLUCOSE, FASTING 138 MG/DL (74-106); HDL CHOLESTEROL 25.6 MG/DL (>40); LDL CHOLESTEROL 32.2 MG/DL (<100); MAGNESIUM LEVEL 1.7 MG/DL (1.8-2.4); NON-HDL-C 62.4 MG/DL; POTASSIUM SERUM 4.6 MMOL/L (3.5-5.1); PTH INTACT 96.1 PG/ML (18.5-88.0); SODIUM LEVEL 143 MMOL/L (136-145); THYROID STIMULATING HORMONE 1.666 uIU/ML (0.55-4.78); TOTAL 25(OH) VITAMIN D 113.6 NG/ML (20.0-100.0); TOTAL PROTEIN 7.2 G/DL (5.7-8.2); TRIGLYCERIDES LEVEL 151 MG/DL (<150)
[2024-10-14 14:42] LABS: FREE T4 1.22 NG/DL (0.89-1.76)
== END ==
LOC: M LAB 13:16
PROVIDERS: ATTEND Family Medicine
DX: I50.32 Chronic diastolic (congestive) heart failure (principal); D50.9 Iron deficiency anemia, unspecified; E03.9 Hypothyroidism, unspecified; Z12.5 Encounter for screening for malignant neoplasm of prostate; E11.9 Type 2 diabetes mellitus without complications; K74.00 Hepatic fibrosis, unspecified; E55.9 Vitamin D deficiency, unspecified; E78.5 Hyperlipidemia, unspecified
CPT/HCPCS: 36415; 80053; 80061; 82043; 82306; 82728; 83036; 83525; 83735; 83880; 83970; 84439; 84443; 85025; 85610; 85730; G0103

== ENCOUNTER → 2025-02-21 | Outpatient (CLI) | payer MEDICARE, OTHER ==
[~2025-02-21] MED LIST changes: -METF-1113 PO; +METF-1201 PO
[2025-02-21 10:58] LABS: BASO # 0.1 10^3/uL (0.0-0.2); BASO % 0.7 % (0.0-1.0); EOS # 0.1 10^3/uL (0.0-0.5); EOS % 1.7 % (0.0-3.0); LYMPH # 2.4 10^3/uL (1.5-5.0); LYMPH % 28.6 % (24.0-44.0); MONO # 0.7 10^3/uL (0.0-0.8); MONO % 8.7 % (2.0-8.0); NEUTROPHILS # 5.0 10^3/uL (1.5-8.5); NEUTROPHILS % 59.9 % (36.0-66.0); PLATELET COUNT, AUTOMATED 103 10^3/uL (150-450)
[2025-02-21 11:10] LABS: INR 0.95
[2025-02-21 11:27] LABS: ALT/SGPT 13.0 U/L (7.0-40); AST/SGOT 11.0 U/L (<34); CALCIUM LEVEL 8.7 MG/DL (8.3-10.6); CARBON DIOXIDE LEVEL 22.0 MMOL/L (20-31); CHLORIDE LEVEL 109.0 MMOL/L (98-107); CHOLESTEROL LEVEL 89.0 MG/DL (<200); CHOLESTEROL RISK RATIO 3.61 (<5); CREATININE FOR GFR 1.56 MG/DL (0.70-1.30); GLOMERULAR FILTRATION RATE 46.9 (>42); LDL CHOLESTEROL 20.6 MG/DL (<100); MAGNESIUM LEVEL 1.7 MG/DL (1.8-2.4); NON-HDL-C 64.4 MG/DL; POTASSIUM SERUM 4.4 MMOL/L (3.5-5.1); PSA SCREENING 0.52 NG/ML (< 4.00); PTH INTACT 70.1 PG/ML (18.5-88.0); SODIUM LEVEL 141.0 MMOL/L (136-145); TRIGLYCERIDES LEVEL 219.0 MG/DL (<150)
[2025-02-21 11:30] LABS: FREE T4 1.16 NG/DL (0.89-1.76)
[2025-02-21 11:32] LABS: TOTAL 25(OH) VITAMIN D 77.0 NG/ML (20.0-100.0)
[2025-02-21 11:36] LABS: ESTIMATED AVERAGE GLUCOSE 180.0 MG/DL (60-110)
== END ==
LOC: M LAB 10:25
PROVIDERS: ATTEND Family Medicine
DX: I50.32 Chronic diastolic (congestive) heart failure (principal); D50.9 Iron deficiency anemia, unspecified; E03.9 Hypothyroidism, unspecified; Z12.5 Encounter for screening for malignant neoplasm of prostate; E11.9 Type 2 diabetes mellitus without complications; E78.5 Hyperlipidemia, unspecified; K74.00 Hepatic fibrosis, unspecified
CPT/HCPCS: 80053; 80061; 82306; 82728; 83036; 83525; 83735; 83880; 83970; 84439; 84443; 85025; 85610; 85730; G0103

== ENCOUNTER 2025-04-18 20:56 | Emergency (ER) | payer MEDICARE, OTHER ==
[~2025-04-18] VITALS: Ht 172.7 cm; Wt 144.0 kg
[2025-04-18 21:53] LABS: BASO # 0.1 10^3/uL (0.0-0.2); BASO % 0.5 % (0.0-1.0); EOS # 0.2 10^3/uL (0.0-0.5); EOS % 1.3 % (0.0-3.0); LYMPH # 2.2 10^3/uL (1.5-5.0); LYMPH % 18.0 % (24.0-44.0); MONO # 0.9 10^3/uL (0.0-0.8); MONO % 7.0 % (2.0-8.0); NEUTROPHILS # 8.9 10^3/uL (1.5-8.5); NEUTROPHILS % 72.7 % (36.0-66.0); PLATELET COUNT, AUTOMATED 114 10^3/uL (150-450)
[2025-04-18 22:16] LABS: ALT/SGPT 11.0 U/L (7.0-40); AST/SGOT 13.0 U/L (<34); CALCIUM LEVEL 8.9 MG/DL (8.3-10.6); CARBON DIOXIDE LEVEL 24.0 MMOL/L (20-31); CHLORIDE LEVEL 106.0 MMOL/L (98-107); CREATININE FOR GFR 1.55 MG/DL (0.70-1.30); GLOMERULAR FILTRATION RATE 47.3 (>42); POTASSIUM SERUM 4.5 MMOL/L (3.5-5.1); SODIUM LEVEL 142.0 MMOL/L (136-145)
[2025-04-19] MEDS ORDERED: ISOVUE-370 76% 100 ML VIAL As Ordered ONE (02:14)
[2025-04-19] MEDS: ONDANSETRON 4MG/2ML VIAL IV ONE (02:43)
[2025-04-19] MEDS: NS 500 ML IV ONE (02:43)
[2025-04-19] MEDS: KETOROLAC 30 MG/ML 1 ML VIAL IV ONE (02:47)
[2025-04-19] MEDS: FAMOTIDINE 20 MG/2 ML VIAL IVP ONE (02:47)
[2025-04-19 05:00] VITALS: BP 128/60; TEMP 97.5; O2SAT 96
== END 2025-04-19 05:12 | disposition home or self-care (01) ==
LOC: M ED 20:56
DX: K80.20 Calculus of gallbladder without cholecystitis without obstruction (principal); I10 Essential (primary) hypertension; E03.9 Hypothyroidism, unspecified; E11.9 Type 2 diabetes mellitus without complications; E78.5 Hyperlipidemia, unspecified; J44.9 Chronic obstructive pulmonary disease, unspecified; E55.9 Vitamin D deficiency, unspecified; K21.9 Gastro-esophageal reflux disease without esophagitis; I25.2 Old myocardial infarction; Z86.79 Personal history of other diseases of the circulatory system; Z88.8 Allergy status to other drugs, medicaments and biological substances
CPT/HCPCS: 74177; 80048; 80076; 83690; 85025; 87507; 96374; 96375; 99284; J1308; J1885; J2405; Q9967

== ENCOUNTER 2025-04-23 08:16 | Emergency (ER) | payer MEDICARE, OTHER ==
[~2025-04-23] VITALS: Ht 172.7 cm; Wt 177.0 kg
[~2025-04-23 08:16] MED LIST changes: +OXYCODONE/APAP 5MG/325MG(HOME DOSE PACK) PO SCH
[2025-04-23] MEDS: PERCOCET 5MG/325MG TAB PO ONE (09:06)
[2025-04-23 09:07] LABS: BASO # 0.1 10^3/uL (0.0-0.2); BASO % 0.6 % (0.0-1.0); EOS # 0.2 10^3/uL (0.0-0.5); EOS % 2.1 % (0.0-3.0); LYMPH # 2.3 10^3/uL (1.5-5.0); LYMPH % 23.9 % (24.0-44.0); MONO # 0.7 10^3/uL (0.0-0.8); MONO % 7.7 % (2.0-8.0); NEUTROPHILS # 6.2 10^3/uL (1.5-8.5); NEUTROPHILS % 65.1 % (36.0-66.0); PLATELET COUNT, AUTOMATED 102 10^3/uL (150-450)
[2025-04-23 09:30] LABS: ALT/SGPT 10.0 U/L (7.0-40); AST/SGOT 13.0 U/L (<34); CALCIUM LEVEL 8.8 MG/DL (8.3-10.6); CARBON DIOXIDE LEVEL 24.0 MMOL/L (20-31); CHLORIDE LEVEL 108.0 MMOL/L (98-107); CREATININE FOR GFR 1.43 MG/DL (0.70-1.30); GLOMERULAR FILTRATION RATE 52.1 (>42); POTASSIUM SERUM 4.5 MMOL/L (3.5-5.1); SODIUM LEVEL 143.0 MMOL/L (136-145)
[2025-04-23] MEDS ORDERED: PERC5TAB12 PO (12:28)
[2025-04-23 12:30] VITALS: BP 137/75; O2SAT 98
[2025-04-23 13:00] VITALS: TEMP 96.8
== END 2025-04-23 13:09 | disposition home or self-care (01) ==
LOC: M ED 08:16
DX: R10.9 Unspecified abdominal pain (principal); K76.0 Fatty (change of) liver, not elsewhere classified; K76.89 Other specified diseases of liver; E11.9 Type 2 diabetes mellitus without complications; I10 Essential (primary) hypertension; N18.9 Chronic kidney disease, unspecified; E78.5 Hyperlipidemia, unspecified; G47.30 Sleep apnea, unspecified; E03.9 Hypothyroidism, unspecified; Z86.79 Personal history of other diseases of the circulatory system; Z88.8 Allergy status to other drugs, medicaments and biological substances; Z79.82 Long term (current) use of aspirin; Z79.899 Other long term (current) drug therapy; Z79.4 Long term (current) use of insulin